=== PATIENT | female | born 1940 | race Two or more races ===

== ENCOUNTER 2019-08-23 23:37 | Inpatient (IN) | payer MEDICARE, MEDICAID ==
[~2019-08-23] VITALS: Ht 165.1 cm; Wt 71.2 kg
[2019-08-24] MEDS ORDERED: IV NS 0.9% 500 ML BAG IV ONE
[2019-08-24 00:05] LABS: BASOPHILS # (AUTO) 0.1 /CMM (0.0-0.2); BASOPHILS % (AUTO) 0.5 % (0.0-2.0); EOSINOPHILS % (AUTO) 1.5 % (0.0-6.0); HEMATOCRIT 37 % (33-45); HEMOGLOBIN 11.6 g/dL (11.5-14.8); LYMPHOCYTES % (AUTO) 13.4 % (20.0-44.0); MEAN CORPUSCULAR HGB CONC 32 g/dl (31.0-36.0); MEAN CORPUSCULAR VOLUME 92 fL (82-100); MONOCYTES # (AUTO) 0.9 /CMM (0.1-1.30); MONOCYTES % (AUTO) 4.1 % (2.0-12.0); NEUTROPHILS # (AUTO) 17.9 /CMM (1.8-8.9); NEUTROPHILS % (AUTO) 80.5 % (43.0-81.0); PLATELET COUNT (AUTO) 461 /CMM (150-450); RED BLOOD CELL COUNT(AUTO) 3.99 MIL/uL (4.0-5.2); WHITE BLOOD COUNT (AUTO) 22.2 K/uL (4.3-11.0)
--- NOTE | 2019-08-24 00:18 | NUR ---
Pt rec'd on non rebreather mask @ 15LPM. Pt showed shortness of breath and tachypnea. Pt placed on bipap on settings as charted per MD orders. ABG to be taken in 1 hour per MD orders. Alarms are set and audible. Bipap plugged into red oulet. Ambu bag bedside. Will continue to monitor. Addendum: 08/24/19 at 0021 by FREIDA DUBOSE RT Amended: Links added.
--- NOTE | 2019-08-24 00:20 | NUR ---
REFERRED BY PMD FOR ABNORMAL XRAY. HAVING SOB AT FACILITY.
[2019-08-24 00:26] LABS: CARBON DIOXIDE 26 mmol/L (21-32); CHLORIDE 100 mmol/L (98-107); GLUCOSE 178 mg/dL (74-106); POTASSIUM 4.1 mmol/L (3.5-5.1); SODIUM SERUM 138 mmol/L (136-145); UREA NITROGEN, BLOOD 32 mg/dL (7-18)
[2019-08-24 00:39] LABS: ALANINE AMINOTRANSFERASE 21 U/L (12-78); ALBUMIN 2.7 g/dL (3.4-5.0); ALKALINE PHOSPHATASE 117 U/L (46-116); ASPARTATE AMINOTRANSFERASE 11 U/L (15-37); B-TYPE NATRIURETIC PEPTIDE 748 PG/ML (0-125); BILIRUBIN,DIRECT 0.1 mg/dL (0.0-0.2); BILIRUBIN,TOTAL 0.2 mg/dL (0.2-1.0)
[2019-08-24] MEDS ORDERED: METH5TAB6 PO (01:16)
[2019-08-24] MEDS ORDERED: ENOX40DI SQ (01:16)
[2019-08-24] MEDS ORDERED: PRED20TA PO (01:16)
[2019-08-24] MEDS ORDERED: ASPI-1169 PO (01:16)
[2019-08-24] MEDS ORDERED: CYAN-6 PO (01:16)
[2019-08-24] MEDS ORDERED: GABA-534 PO (01:17)
[2019-08-24] MEDS ORDERED: NIFE30TA91 PO (01:17)
[2019-08-24] MEDS ORDERED: MONT10TA22 PO (01:17)
[2019-08-24] MEDS ORDERED: ZINC220C8 PO (01:17)
[2019-08-24] MEDS ORDERED: ATOR10TA PO (01:17)
[2019-08-24] MEDS ORDERED: ASCO500C18 PO (01:17)
[2019-08-24] MEDS ORDERED: FURO-145 PO (01:17)
[2019-08-24] MEDS ORDERED: PANT40TA4 PO (01:17)
[2019-08-24] MEDS ORDERED: ACET125T3 PO (01:17)
[2019-08-24] MEDS ORDERED: MULT1TAB73 PO (01:17)
[2019-08-24] MEDS ORDERED: FLUT1BLS IH (01:17)
[2019-08-24] MEDS ORDERED: METO25TA6 PO (01:17)
[2019-08-24] MEDS ORDERED: MIRT15TA7 PO (01:17)
[2019-08-24] MEDS ORDERED: SPIR25TA6 PO (01:17)
[2019-08-24] MEDS ORDERED: LORA10TA7 PO (01:17)
[2019-08-24] MEDS ORDERED: BUSP5TAB3 PO (01:17)
[2019-08-24] MEDS ORDERED: SENN-18 PO (01:17)
[2019-08-24] MEDS ORDERED: ZOLP5TAB8 PO (01:17)
--- NOTE | 2019-08-24 01:46 | NUR ---
STEVEN RODRÍGUEZ. STEVEN NAIDU. NO NEW CHANGES PER MD Addendum: 08/24/19 at 0147 by FREIDA DUBOSE RT Amended: Links added.
[2019-08-24] MEDS ORDERED: PIPERACILLIN /TAZOBACTAM 3.375 G in IV D5W 50 ML IV ONE (02:00)
[2019-08-24] MEDS ORDERED: VANCOMYCIN 1 GM in IV D5W 250 ML IV ONE (02:00)
--- NOTE | 2019-08-24 02:04 | NUR ---
BED ASSIGNMENT YASHIRA 113-2
[2019-08-24] MEDS ORDERED: VANCOMYCIN 1 GM VIAL ONE (02:30)
[2019-08-24] MEDS ORDERED: PIPERACILLIN /TAZOBACTAM 3.375 G VIAL IV ONE (02:30)
--- NOTE | 2019-08-24 02:44 | NUR ---
REPORT CALLED TO YASHIRA DEIRDRE GOLDMAN. WILL TRANSPORT PT VIA ACLS PROTOCOL.
--- NOTE | 2019-08-24 03:05 | NUR ---
YASHIRA RN NOTE PATIENT RECEIVED FROM ER A/0 X 4 UPPER SORBIAN SPEAKING ON NON REBREATHER. PATIENT SLIGHT SHORT OF BREATH AND VERBALLY DEFENSIVE. PATIENT VS WNL PATIENT DENIES PAIN/ CHEST PAIN AND C/O MILD SOB. SKIN WNL NO CYANOSIS OR PALLOR. SKIN WARM AND DRY. BODY CHECK DONE WITH MULTIPLE SKIN ISSUES NOTED. WOUND CONSULT PLACED. PATIENT HAS SINGLE LUMEN PICC LINE IN HEIDI PATENT AND INTACT. PATIENT COMPLETED VANCO FROM ER. PATIENT CLEANED AND ORIENTED TO THE UNIT. INSTRUCTED THE USE OF THE CALL LIGHT TO THE PATIENT PATIENT VERBALIZE UNDERSTANDING. NOTIFIED THE FAMILY OF PATIENT ADMISSION TO HOSPITAL. SPOKE TO THE "PERSON TO NOTIFY OTILIO MOCTEZUMA. RN WILL CONTINUE TO MONITOR AND GIVE CARE ORDERED. BED IN LOWEST LOCKED POSITION SIDE RAILS UP X3.
[2019-08-24 04:00] VITALS: BP 122/63
[2019-08-24] MEDS ORDERED: IPRATROPIUM NEB FS 0.5 MG/2.5 ML AMPUL.NEB NEB PRN (04:00)
[2019-08-24] MEDS ORDERED: ALBUTEROL FS 2.5 MG/3 ML VIAL.NEB NEB PRN (04:00)
[2019-08-24] MEDS ORDERED: AZITHROMYCIN 500 MG VIAL ONE (05:43)
[2019-08-24] MEDS: AZITHROMYCIN 500 MG in IV D5W 250 ML IV SCH (06:05)
[2019-08-24] MEDS: IV NS 0.9% 1,000 ML IV PRN ×2 (06:05→20:39)
[2019-08-24 07:25] LABS: BASOPHILS # (AUTO) 0.1 /CMM (0.0-0.2); BASOPHILS % (AUTO) 0.3 % (0.0-2.0); EOSINOPHILS % (AUTO) 1.3 % (0.0-6.0); HEMATOCRIT 38 % (33-45); HEMOGLOBIN 11.7 g/dL (11.5-14.8); LYMPHOCYTES # (AUTO) 2.5 /CMM (0.8-4.8); LYMPHOCYTES % (AUTO) 11.1 % (20.0-44.0); MEAN CORPUSCULAR HGB CONC 31 g/dl (31.0-36.0); MEAN CORPUSCULAR VOLUME 93 fL (82-100); MONOCYTES # (AUTO) 0.5 /CMM (0.1-1.30); MONOCYTES % (AUTO) 2.1 % (2.0-12.0); NEUTROPHILS # (AUTO) 19.2 /CMM (1.8-8.9); NEUTROPHILS % (AUTO) 85.2 % (43.0-81.0); PLATELET COUNT (AUTO) 389 /CMM (150-450); RED BLOOD CELL COUNT(AUTO) 4.03 MIL/uL (4.0-5.2); WHITE BLOOD COUNT (AUTO) 22.5 K/uL (4.3-11.0)
--- NOTE | 2019-08-24 07:30 | NUR ---
RN YASHIRA NOTES RECEIVED BEDSIDE REPORT PATIENT SLEEPING A/O X3 NEW ZEALANDER SPEAKING. NO SIGNS OR SYMPTOMS OF RESPIRATORY DISTRESS ON BIPAP TOLERATING WELL. NO C/O PAIN AT THIS TIME. NORMAL NORMAL SINUS WITH EPISODES OF TACHY ON MONITOR. NPO EXCEPT MEDS. HEIDI PICC LINE RUNNING NS @ 70 ML/HR. SAFETY AND ASPIRATION PRECAUTIONS IN PLACE BED IN LOW LOCKED POSITION CALL LIGHT WITHIN REACH WILL CONT TO MONITOR
[2019-08-24] MEDS ORDERED: ALBUTEROL FS 2.5 MG/3 ML VIAL.NEB NEB SCH (07:35)
[2019-08-24 07:47] LABS: BILIRUBIN,TOTAL 0.2 mg/dL (0.2-1.0); CALCIUM, SERUM 9.4 mg/dL (8.5-10.1); CREATININE 0.8 mg/dL (0.6-1.3); POTASSIUM 4.2 mmol/L (3.5-5.1); TOTAL PROTEIN, SERUM 7.7 g/dL (6.4-8.2)
[2019-08-24] MEDS ORDERED: POLY15DR40 EACHEYE (07:50)
[2019-08-24] MEDS ORDERED: IPRA3AMP23 IH (07:50)
[2019-08-24] MEDS ORDERED: TRAM50TA2 PO (07:50)
[2019-08-24] MEDS ORDERED: ACET-868 PO (07:50)
[2019-08-24] MEDS ORDERED: HYDR-3974 PO (07:50)
[2019-08-24] MEDS ORDERED: MULT-447 PO (07:50)
[2019-08-24] MEDS ORDERED: ASPI-1152 PO (07:50)
[2019-08-24] MEDS ORDERED: BACL10TA PO (07:50)
[2019-08-24] MEDS ORDERED: MAGN400T26 PO (07:50)
[2019-08-24] MEDS ORDERED: GUAI100S11 PO (07:50)
[2019-08-24] MEDS ORDERED: LACT1CAP94 PO (07:50)
[2019-08-24 08:00] VITALS: BP 118/64
[2019-08-24] MEDS: IPRATROPIUM NEB FS 0.5 MG/2.5 ML AMPUL.NEB NEB SCH ×4 (08:05→19:45)
[2019-08-24 08:15] LABS: ALBUMIN 2.9 g/dL (3.4-5.0)
[2019-08-24] MEDS ORDERED: ASPIRIN EC 81 MG TABLET.DR PO SCH (09:00)
[2019-08-24] MEDS ORDERED: LACTOBACILLUS RHAMNOSUS GG 1 EACH CAP.SPRINK PO SCH (09:00)
[2019-08-24] MEDS ORDERED: HYDROCODONE/APAP 5/325MG 1 EACH TABLET PO PRN (09:00)
[2019-08-24] MEDS ORDERED: MAGNESIUM OXIDE 400 MG TABLET PO SCH (09:00)
[2019-08-24] MEDS ORDERED: ZOLPIDEM TARTRATE 5 MG TABLET PO PRN (09:00)
[2019-08-24] MEDS ORDERED: GUAIFENESIN 300 MG/15 ML UDC PO PRN (09:00)
[2019-08-24] MEDS ORDERED: MULTIVIT W/MINERALS 1 TAB TABLET PO SCH (09:00)
[2019-08-24] MEDS ORDERED: BACLOFEN (10 MG) 10 MG TABLET PO PRN (09:00)
[2019-08-24] MEDS ORDERED: acetaZOLAMIDE 250 MG TABLET PO SCH (09:00)
[2019-08-24] MEDS ORDERED: ZINC SULFATE 220 MG CAPSULE PO SCH (09:00)
[2019-08-24] MEDS ORDERED: ASCORBIC ACID 500 MG TABLET PO SCH (09:00)
[2019-08-24] MEDS ORDERED: POLYVINYL ALCOHOL 15 ML BOTTLE EACHEYE PRN (09:00)
[2019-08-24] MEDS ORDERED: ACETAMINOPHEN 325 MG TABLET PO PRN (09:00)
[2019-08-24] MEDS ORDERED: TRAMADOL HCL 50 MG TABLET PO PRN (09:00)
--- NOTE | 2019-08-24 09:05 | NUR ---
RT ABG DONE, RESULTS IN CHART. DOWN TIME PROCEDURE DONE. RN NOTIFIED. DR HILARIO NOTIFIED. PH 7.30 CO2 53.8 PO2 62.1 HCO3 26.4
[2019-08-24 09:30] LABS: BAND % (MANUAL) 8 % (0.0-5.0); EOSINOPHILS % (MANUAL) 1 % (0-4); LYMPHOCYTES % (MANUAL) 19 % (16-48); MONOCYTES % (MANUAL) 3 % (0-11.0); NEUTROPHILS % (MANUAL) 69 (42-76)
[2019-08-24 09:34] LABS: THYROID STIMULATING HORMONE 1.673 uIU/mL (0.358-3.74)
[2019-08-24] MEDS: SPIRONOLACTONE 25 MG TABLET PO SCH (09:46)
[2019-08-24] MEDS: predniSONE 20 MG TABLET PO SCH (09:46)
[2019-08-24] MEDS: METHIMAZOLE (5MG) 5 MG TABLET PO SCH (09:46)
[2019-08-24] MEDS: METOPROLOL TARTRATE 25 MG TABLET PO SCH ×2 (09:47→17:38)
[2019-08-24] MEDS: GABAPENTIN 300 MG CAPSULE PO SCH ×3 (09:47→17:38)
[2019-08-24] MEDS: busPIRone 5 MG TABLET PO SCH ×2 (09:47→17:37)
[2019-08-24] MEDS: FLUTICASONE/VILANTEROL 1 EACH BLST.W.DEV IH SCH (09:47)
[2019-08-24] MEDS: NIFEdipine XL (30MG) 30 MG TAB PO SCH ×2 (09:47→17:38)
[2019-08-24] MEDS: LORATADINE 10 MG TABLET PO SCH (09:47)
[2019-08-24] MEDS: ENOXAPARIN SODIUM 40 MG/0.4 ML DISP.SYRIN SQ SCH (09:52)
[2019-08-24] MEDS: ALBUTEROL FS 2.5 MG/3 ML VIAL.NEB NEB SCH ×5 (11:53→23:18)
[2019-08-24 12:00] VITALS: BP 111/52
[2019-08-24] MEDS: CEFTRIAXONE 1 G in IV D5W 50 ML IV SCH (12:12)
--- NOTE | 2019-08-24 12:30 | NUR ---
LEFT MESSAGE WITH DR HURD PATIENT HAS LOW GRADE FEVER REQUESTING ORDER FOR TYLENOL. DR UNAWARE OF THIS PATIENT WILL F/U
[2019-08-24] MEDS ORDERED: Z GUARD REMEDY 2 OZ OINT TP PRN (14:00)
[2019-08-24 16:00] VITALS: BP 105/62
--- NOTE | 2019-08-24 16:00 | NUR ---
DR HURD RESPONDED DR SÁNCHEZ TO F/U WITH PT TODAY
--- NOTE | 2019-08-24 18:07 | NUR ---
CONFIRMED WITH FAMILY OLIVERIO DAUGHTER IN LAW THAT PATINT IS DNR/DNI THE POLST STATES IN CHART. DR HILARIO AWARE
--- NOTE | 2019-08-24 18:37 | NUR ---
RN YASHIRA NOTES NO SIGNIFICANT CHANGES NOTED . PATIENT A/O X 1-2 CONFUSED AT TIMES. ON 6 LTRS NASAL CANNULA WITH SOME SOB WITH NO DISTRESS NOTED. NO C/O PAIN . SINUS ON MONITOR 90'S. INCONTINENT B&B WOUND CONSULT ORDERED FOR MASD. NPO EXCEPT MEDS.HEIDI PICC RUNNING NS @ 70 ML/HR. KEPT CLEAN AND DRY REPOSITIONED FOR COMFORT SAFETY AND ASPIRATION PRECAUTIONS IN PLACE BED IN LOW LOCKED POSITION WILL ENDORSE TO NOC
[2019-08-24 20:00] VITALS: BP 104/65
--- NOTE | 2019-08-24 20:01 | NUR ---
TD RN NOTES RECEIVED PT ON BED. A/O X 2. ON TELE MONITOR SR 82. IV ACCESS ON HEIDI PICC NS @ 70CC/HR PATENT AND INTACT. HEAD OF BED ELEVATED. SIDE RAILS UP. CALL LIGHT WITHIN REACH. BED ALARM ON. BED IN LOW AND LOCKED POSITION, WILL CONTINUE TO MONITOR PT CLOSELY.
--- NOTE | 2019-08-24 20:02 | NUR ---
TD RN NOTES PT REFUSE BIPAP. EXPLAINED RISK AND BENEFITS. PT STILL REFUSED.
[2019-08-24] MEDS: MONTELUKAST SODIUM (10MG) 10 MG TABLET PO SCH (21:15)
[2019-08-24] MEDS: MIRTAZAPINE 15 MG TABLET PO SCH (21:15)
[2019-08-24] MEDS: ATORVASTATIN 10 MG TABLET PO SCH (21:15)
[2019-08-24] MEDS: SENNOSIDES 8.6 MG TABLET PO SCH (21:16)
--- NOTE | 2019-08-24 22:46 | NUR ---
TD RN NOTES PT ON BIPAP. RT AT BEDSIDE.
[2019-08-25] VITALS: BP 106/71
[2019-08-25] MEDS: ALBUTEROL FS 2.5 MG/3 ML VIAL.NEB NEB SCH ×5 (03:05→20:01)
[2019-08-25 04:00] VITALS: BP 121/70
[2019-08-25] MEDS: AZITHROMYCIN 500 MG in IV D5W 250 ML IV SCH (05:17)
--- NOTE | 2019-08-25 06:45 | NUR ---
TD RN NOTES PT SEEN AND EXAMINED BY DR. MARIN
--- NOTE | 2019-08-25 07:34 | NUR ---
TD RN NOTES NO ACUTE CHANGES NOTED DURING THE SHIFT. NO RESPIRATORY DISTRESS NOTED. WILL ENDORSE TO THE AM NURSE FOR CONTINUITY OF CARE.
[2019-08-25] MEDS: IPRATROPIUM NEB FS 0.5 MG/2.5 ML AMPUL.NEB NEB SCH ×4 (07:40→20:01)
[2019-08-25 08:00] VITALS: BP 108/59
[2019-08-25] MEDS: METOPROLOL TARTRATE 25 MG TABLET PO SCH ×2 (09:00→18:42)
[2019-08-25] MEDS: CEFTRIAXONE 1 G in IV D5W 50 ML IV SCH (09:25)
[2019-08-25] MEDS: FLUTICASONE/VILANTEROL 1 EACH BLST.W.DEV IH SCH (09:26)
[2019-08-25] MEDS: ENOXAPARIN SODIUM 40 MG/0.4 ML DISP.SYRIN SQ SCH (09:29)
[2019-08-25] MEDS ORDERED: ONDANSETRON HCL/PF 4 MG/2 ML VIAL IV PRN (09:30)
--- NOTE | 2019-08-25 10:20 | NUR ---
WOUND CARE CONSULT: PT PRESENTS WITH INCONTINENCE AND INCONTINENCE ASSOCIATED SKIN DAMAGE TO BUTTOCKS, RASHES TO BREASTFOLDS, ABDOMINAL AND GROIN FOLDS, PRESENT ON ADMISSION. RECOMMENDATIONS MADE FOR SKIN PROTECTION AND CARE. DISCUSSED WITH NURSING STAFF. CURRENT HAMILTON SCORE IS 11. FIRST STEP LOW AIRLOSS MATTRESS ON ORDER. WILL SEE PRN. VICK IN AGREEMENT WITH PLAN OF CARE. Addendum: 08/25/19 at 1021 by AMY BOYD WNDNU Amended: Links added.
[2019-08-25 12:00] VITALS: BP 107/56
[2019-08-25] MEDS: busPIRone 5 MG TABLET PO SCH ×2 (12:00→18:41)
[2019-08-25] MEDS: predniSONE 20 MG TABLET PO SCH (12:00)
[2019-08-25] MEDS: METHIMAZOLE (5MG) 5 MG TABLET PO SCH (12:00)
[2019-08-25] MEDS: GABAPENTIN 300 MG CAPSULE PO SCH ×3 (12:01→18:51)
[2019-08-25] MEDS: SPIRONOLACTONE 25 MG TABLET PO SCH (12:01)
[2019-08-25] MEDS: PANTOPRAZOLE 40 MG TABLET.DR PO SCH (12:01)
[2019-08-25] MEDS: LORATADINE 10 MG TABLET PO SCH (12:02)
[2019-08-25] MEDS: IV NS 0.9% 1,000 ML IV PRN (12:38)
[2019-08-25 16:00] VITALS: BP_SYST 111; BP_SYST 126; BP_DIAS 63; BP_DIAS 69
[2019-08-25] MEDS: CLOTRIMAZOLE 1% 15 GM TUBE TP SCH (18:52)
--- NOTE | 2019-08-25 19:00 | NUR ---
RN NOTE F/U WITH DR HURD REGARDING THE DIET, DIET ORDERED. PT WAS ABLE TO TOLERATE WELL, NO S/S ASPIRATION.
--- NOTE | 2019-08-25 19:30 | NUR ---
RN OPENING NOTES RECEIVED PATIENT ASLEEP WITH NO SIGNS OF DISTRESS. PATIENT IS ON THE MONITOR WITH SINUS TACH HEART RATE 95. NO COMPLAINTS ON ANY SOB. PATIENT HAS A HEIDI MIDLINE WITH NS RUNNING AT 70ML/HR. PATIENT IS ON ISOLATION FOR MRSA ISOLATION PRECAUTIONS APPLIED. ALL SAFETY PRECAUTIONS APPLIED. CALL LIGHT IS WITHIN REACH, BED PLACED IN LOW POSITION AND ALARM BED ON. WILL CONTINUE TO MONITOR.
[2019-08-25 20:00] VITALS: BP 109/60
[2019-08-25] MEDS ORDERED: MUPIROCIN OINT 2% 22 GM TUBE SCH (21:00)
[2019-08-25] MEDS: MONTELUKAST SODIUM (10MG) 10 MG TABLET PO SCH (21:44)
[2019-08-25] MEDS: SENNOSIDES 8.6 MG TABLET PO SCH (21:44)
[2019-08-25] MEDS: ATORVASTATIN 10 MG TABLET PO SCH (21:44)
[2019-08-25] MEDS: MIRTAZAPINE 15 MG TABLET PO SCH (21:45)
[2019-08-26] VITALS: BP 125/64
[2019-08-26] MEDS: ALBUTEROL FS 2.5 MG/3 ML VIAL.NEB NEB SCH ×7 (00:24→23:49)
[2019-08-26] MEDS: IV NS 0.9% 1,000 ML IV PRN (03:38)
[2019-08-26 04:00] VITALS: BP 126/48
[2019-08-26] MEDS: AZITHROMYCIN 500 MG in IV D5W 250 ML IV SCH (05:40)
[2019-08-26 06:20] LABS: ABG BASE EXCESS -0.3 mmol/L; ABG OXYGEN SATURATION 98.7 % (92.0-98.5); ABG PCO2 56.1 mmHg (35.0-45.0); ABG PH 7.297 (7.350-7.450); ABG PO2 173.9 mmHg (75.0-100.0); COHb 0.3 % (0.5-1.5); MetHb 0.6 % (0.0-1.5); O2Hb 97.8 % (94.0-97.0); SITE, ABG Left Radial
--- NOTE | 2019-08-26 06:30 | NUR ---
RN NOTE PATIENT OXYGEN HAD DROPPED TO THE 70'S CALLED RT. RT CHECKED ABG'S AND PLACED PATIENT IN BIPAP MACHINE. CALL DR CLAIMS ASSOCIATE FOR DR. HURD TO NOTIFY ABOUT THE PATIENT'S STATUS.
--- NOTE | 2019-08-26 06:36 | NUR ---
pt placed back on Bipap per abg results Addendum: 08/26/19 at 0636 by FREIDA DUBOSE RT Amended: Links added.
--- NOTE | 2019-08-26 07:30 | NUR ---
GUIDE VISITOR INITIAL NOTES RECEIVED PT IN BED, A/OX1. ON BIPAP SINCE 629 D/T PT DESAT IN 70'S PER PM NURSE. PT'S O2 94% NO S/SX OF RESP DISTRESS AT THIS TIME. ON TELE ST 113. AFEBRILE. HEIDI MIDLINE RUNNING NS AT 70 ML/HR. SAFETY/ISOLATION PRECAUTIONS IN PLACE. CALL LIGHT IN REACH. WILL CONT TO MONITOR.
--- NOTE | 2019-08-26 07:38 | NUR ---
TELE TN CLOSING NOTE PATIENT LAYING IN BED WITH NO SIGNS OF ANY SOB. PATIENT IS ON BIPAP WITH IPAP OF 15, EPAP OF 5, RATE OF 16, FI02 50%. PATIENTS OXYGEN LEVEL IS IN THE 99. APPLIED ALL SAFETY PRECAUTIONS. ENDORSED PATIENT TO MORNING NURSE.
[2019-08-26 08:00] VITALS: BP 123/61
--- NOTE | 2019-08-26 08:30 | NUR ---
telephone messenger notes bipap removed by rt. pt's o2 wnl on 6L NC. will cont to monitor.
[2019-08-26] MEDS: CEFTRIAXONE 1 G in IV D5W 50 ML IV SCH (08:58)
[2019-08-26 08:59] LABS: THYROID STIMULATING HORMONE 0.881 uIU/mL (0.358-3.74)
[2019-08-26] MEDS: FLUTICASONE/VILANTEROL 1 EACH BLST.W.DEV IH SCH (08:59)
[2019-08-26] MEDS: CLOTRIMAZOLE 1% 15 GM TUBE TP SCH ×2 (09:03→17:39)
[2019-08-26] MEDS: IPRATROPIUM NEB FS 0.5 MG/2.5 ML AMPUL.NEB NEB SCH ×4 (09:06→19:54)
[2019-08-26] MEDS: METOPROLOL TARTRATE 25 MG TABLET PO SCH ×2 (09:07→17:28)
[2019-08-26] MEDS: ENOXAPARIN SODIUM 40 MG/0.4 ML DISP.SYRIN SQ SCH (09:07)
[2019-08-26] MEDS: SPIRONOLACTONE 25 MG TABLET PO SCH (09:08)
[2019-08-26] MEDS: busPIRone 5 MG TABLET PO SCH ×2 (09:08→17:27)
[2019-08-26] MEDS: predniSONE 20 MG TABLET PO SCH (09:09)
[2019-08-26] MEDS: LORATADINE 10 MG TABLET PO SCH (09:09)
[2019-08-26] MEDS: PANTOPRAZOLE 40 MG TABLET.DR PO SCH (09:09)
[2019-08-26] MEDS: METHIMAZOLE (5MG) 5 MG TABLET PO SCH (09:09)
[2019-08-26] MEDS: GABAPENTIN 300 MG CAPSULE PO SCH ×3 (09:10→17:27)
[2019-08-26 12:00] VITALS: BP 110/55
[2019-08-26 15:49] LABS: ABG OXYGEN SATURATION 94.5 % (92.0-98.5); ABG PH 7.385 (7.350-7.450); ABG PO2 72.5 mmHg (75.0-100.0); AaDO2 105.4 mmHg; COHb 0.2 % (0.5-1.5); MetHb 0.3 % (0.0-1.5); SITE, ABG Left Radial; VENT MODE, BG Nasal Cannula
[2019-08-26 16:00] VITALS: BP 120/68
--- NOTE | 2019-08-26 19:17 | NUR ---
BOWL SANDER END OF SHIFT NOTES PT IN BED, STABLE ON 2L NC. NO S/SX OF RESP DISTRESS NOTED. SAFETY/ISOLATION PRECAUTIONS IN PLACE. ENDORSED TO PM NURSE FOR SIDDHARTHA.
[2019-08-26 20:00] VITALS: BP 105/64
[2019-08-26] MEDS: ATORVASTATIN 10 MG TABLET PO SCH (21:10)
[2019-08-26] MEDS: MONTELUKAST SODIUM (10MG) 10 MG TABLET PO SCH (21:10)
[2019-08-26] MEDS: MIRTAZAPINE 15 MG TABLET PO SCH (21:10)
[2019-08-26] MEDS: SENNOSIDES 8.6 MG TABLET PO SCH (21:10)
[2019-08-27] VITALS: BP 102/58
[2019-08-27] MEDS: ALBUTEROL FS 2.5 MG/3 ML VIAL.NEB NEB SCH ×6 (03:33→23:03)
[2019-08-27 04:00] VITALS: BP 115/77
[2019-08-27] MEDS: AZITHROMYCIN 500 MG in IV D5W 250 ML IV SCH (05:01)
--- NOTE | 2019-08-27 07:15 | NUR ---
BAGGAGE HANDLING SUPERVISOR OPENING RECEIVED PATIENT A/OX1, NO RESPIRATORY DISTRESS NOTED, ATTACHED TO 2L O2 VIA NC. ATTACHED TO TELE, SINUS RHYTHM HR 94. R UA MIDLINE C/D/I, NO S/S INFILTRATION. HOB >30DEGREES. BED ALARM ON, WILL CONT TO MONITOR
[2019-08-27 08:00] VITALS: BP 135/71
[2019-08-27] MEDS: IPRATROPIUM NEB FS 0.5 MG/2.5 ML AMPUL.NEB NEB SCH ×4 (08:08→19:09)
[2019-08-27] MEDS: predniSONE 20 MG TABLET PO SCH (09:02)
[2019-08-27] MEDS: CEFTRIAXONE 1 G in IV D5W 50 ML IV SCH (09:02)
[2019-08-27] MEDS: FLUTICASONE/VILANTEROL 1 EACH BLST.W.DEV IH SCH (09:02)
[2019-08-27] MEDS: SPIRONOLACTONE 25 MG TABLET PO SCH (09:02)
[2019-08-27] MEDS: METOPROLOL TARTRATE 25 MG TABLET PO SCH ×2 (09:03→17:10)
[2019-08-27] MEDS: GABAPENTIN 300 MG CAPSULE PO SCH ×3 (09:03→17:12)
[2019-08-27] MEDS: busPIRone 5 MG TABLET PO SCH ×2 (09:03→17:10)
[2019-08-27] MEDS: LORATADINE 10 MG TABLET PO SCH (09:03)
[2019-08-27] MEDS: METHIMAZOLE (5MG) 5 MG TABLET PO SCH (09:03)
[2019-08-27] MEDS: ENOXAPARIN SODIUM 40 MG/0.4 ML DISP.SYRIN SQ SCH (09:05)
[2019-08-27] MEDS: PANTOPRAZOLE 40 MG TABLET.DR PO SCH (09:08)
[2019-08-27] MEDS: CLOTRIMAZOLE 1% 15 GM TUBE TP SCH ×2 (09:08→17:11)
--- NOTE | 2019-08-27 09:30 | NUR ---
PATIENT REMOVED MIDLINE. NO BLEEDING NOTED FROM SITE. APPROVED ANOTHER INSERTION, NURSING SUP AWARE
[2019-08-27 12:00] VITALS: BP 111/60
[2019-08-27 14:48] LABS: ALBUMIN 2.1 g/dL (3.4-5.0); BILIRUBIN,TOTAL 0.2 mg/dL (0.2-1.0); CALCIUM, SERUM 9.6 mg/dL (8.5-10.1); CREATININE 0.6 mg/dL (0.6-1.3); POTASSIUM 4.6 mmol/L (3.5-5.1); TOTAL PROTEIN, SERUM 7.4 g/dL (6.4-8.2)
[2019-08-27 16:00] VITALS: BP 119/70
--- NOTE | 2019-08-27 19:00 | NUR ---
TELEGRAPH INSPECTOR CLOSING TITRATED PATIENT DOWN TO ROOM AIR THIS SHIFT. SPO 94%, NO SOB, UNLABORED, EVEN BREATHING. PULXE OX ATTACHED, ALARM AUDIBLE. ENDORSED TO NOC RN
--- NOTE | 2019-08-27 19:45 | NUR ---
FOOD SERVICE SPECIALIST OPENING RECEIVED PATIENT A/OX1, NO RESPIRATORY DISTRESS NOTED, ATTACHED TO 2L O2 VIA NC 94%. PATIENT ON TELE MONITOR, SR, HR 94. R UA MIDLINE C/D/I, NO S/S INFILTRATION. HOB >30DEGREES. BED ALARM ON, WILL CONT TO MONITOR
[2019-08-27 20:00] VITALS: BP 123/78
[2019-08-27] MEDS: ATORVASTATIN 10 MG TABLET PO SCH (22:32)
[2019-08-27] MEDS: SENNOSIDES 8.6 MG TABLET PO SCH (22:32)
[2019-08-27] MEDS: MIRTAZAPINE 15 MG TABLET PO SCH (22:33)
[2019-08-27] MEDS: MONTELUKAST SODIUM (10MG) 10 MG TABLET PO SCH (22:33)
[2019-08-28 00:10] VITALS: BP 144/89
[2019-08-28] MEDS: ALBUTEROL FS 2.5 MG/3 ML VIAL.NEB NEB SCH ×6 (03:32→22:58)
[2019-08-28 04:00] VITALS: BP 123/88
[2019-08-28] MEDS: AZITHROMYCIN 500 MG in IV D5W 250 ML IV SCH (06:45)
--- NOTE | 2019-08-28 07:16 | NUR ---
DOT COMPLIANCE MANAGER CLOSING NOTES, PATIENT IN BED A LITTLE ANXIOUS. A/OX1, NO RESPIRATORY DISTRESS NOTED, ATTACHED TO 2L O2 VIA NC 98%. PATIENT ON TELE MONITOR, SR, HR 94. R UA MIDLINE C/D/I, NO S/S INFILTRATION. HOB >30DEGREES. BED LOCKED/LOW POSITION,BED ALARM ON. WILL ENDORSE TO AM RN FOR SIDDHARTHA.
[2019-08-28] MEDS: PANTOPRAZOLE 40 MG TABLET.DR PO SCH (07:28)
--- NOTE | 2019-08-28 07:45 | NUR ---
RN OPENING NOTES RECEIVED PATIENT AWAKE AND RESTING IN BED COMFORTABLY. SHE IS AOX1-2, VERBAL, AND ON BEDREST. SHE IS ANXIOUS THIS MORNING AND WANTS TO GO HOME. 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 TELE MONITOR SHOWING SR. SHE IS ON A MECHANICAL SOFT DIET, TOLERATING WELL. LUNGS SOUNDS ARE DIMINISHED AT LOWER BASES WITH SLIGHT CRACKLES UPON ASSESSMENT. SHE HAS A JUAN MIDLINE, PATENT AND INTACT. WILL ADDRESS SKIN ISSUES ORDERED. SAFETY MEASURES HAVE BEEN IMPLEMENTED, CALL LIGHT IS WITHIN REACH, BED IS IN LOWEST AND LOCKED POSITION, SIDE RIALS UP X2, WILL CONTINUE TO MONITOR FOR ANY CHANGES.
[2019-08-28] MEDS: IPRATROPIUM NEB FS 0.5 MG/2.5 ML AMPUL.NEB NEB SCH ×4 (07:55→19:28)
[2019-08-28 08:00] VITALS: BP 138/84
[2019-08-28] MEDS: CEFTRIAXONE 1 G in IV D5W 50 ML IV SCH (08:28)
[2019-08-28] MEDS: GABAPENTIN 300 MG CAPSULE PO SCH ×3 (08:31→16:41)
[2019-08-28] MEDS: METHIMAZOLE (5MG) 5 MG TABLET PO SCH (08:32)
[2019-08-28] MEDS: busPIRone 5 MG TABLET PO SCH ×2 (08:32→16:40)
[2019-08-28] MEDS: METOPROLOL TARTRATE 25 MG TABLET PO SCH ×2 (08:33→16:41)
[2019-08-28] MEDS: LORATADINE 10 MG TABLET PO SCH (08:33)
[2019-08-28] MEDS: SPIRONOLACTONE 25 MG TABLET PO SCH (08:33)
[2019-08-28] MEDS: predniSONE 20 MG TABLET PO SCH (08:34)
[2019-08-28] MEDS: FLUTICASONE/VILANTEROL 1 EACH BLST.W.DEV IH SCH (08:36)
[2019-08-28] MEDS: ENOXAPARIN SODIUM 40 MG/0.4 ML DISP.SYRIN SQ SCH (08:36)
[2019-08-28] MEDS: CLOTRIMAZOLE 1% 15 GM TUBE TP SCH ×2 (08:37→16:41)
[2019-08-28 08:39] LABS: BASOPHILS # (AUTO) 0.1 /CMM (0.0-0.2); BASOPHILS % (AUTO) 0.6 % (0.0-2.0); EOSINOPHILS % (AUTO) 1.9 % (0.0-6.0); HEMATOCRIT 33 % (33-45); HEMOGLOBIN 10.8 g/dL (11.5-14.8); LYMPHOCYTES # (AUTO) 2.4 /CMM (0.8-4.8); MEAN CORPUSCULAR HGB CONC 33 g/dl (31.0-36.0); MEAN CORPUSCULAR VOLUME 90 fL (82-100); MONOCYTES # (AUTO) 0.4 /CMM (0.1-1.30); MONOCYTES % (AUTO) 3.4 % (2.0-12.0); NEUTROPHILS # (AUTO) 9.4 /CMM (1.8-8.9); NEUTROPHILS % (AUTO) 75.1 % (43.0-81.0); PLATELET COUNT (AUTO) 507 /CMM (150-450); RED BLOOD CELL COUNT(AUTO) 3.66 MIL/uL (4.0-5.2); WHITE BLOOD COUNT (AUTO) 12.6 K/uL (4.3-11.0)
[2019-08-28 10:04] LABS: BAND % (MANUAL) 2 % (0.0-5.0); EOSINOPHILS % (MANUAL) 2 % (0-4); LYMPHOCYTES % (MANUAL) 17 % (16-48); MONOCYTES % (MANUAL) 2 % (0-11.0); NEUTROPHILS % (MANUAL) 77 (42-76)
[2019-08-28 12:00] VITALS: BP 123/69
[2019-08-28 16:00] VITALS: BP 123/84
--- NOTE | 2019-08-28 19:15 | NUR ---
RN CLOSING NOTES PATIENT IS RESTING IN BED COMFORTABLY AT THIS TIME, DENIES ANY PAIN OR DISCOMFORT AT THIS TIME. SHE IS TOLERATING NC WELL, NO SOB OR SEVERE DROP IN O2 SAT. PT NEEDS HAVE BEEN MET, VITAL SIGNS ARE STABLE, NO ACUTE CHANGES OCCURRED THROUGHOUT THE SHIFT. SAFETY MEASURES HAVE BEEN IMPLEMENTED, CALL LIGHT IS WITHIN REACH, BED IS IN LOWEST AND LOCKED POSITION, SIDE RAILS UP X2, PT HAS BEEN ENDORSED TO NIGHTSHIFT RN FOR CONTINUITY OF CARE.
--- NOTE | 2019-08-28 19:15 | NUR ---
RN OPENING NOTE: PATIENT IN BED RESTING COMFORTABLY. PATIENT IS A&OX1-2, VERBAL. NO SOB. NO S/S OF PAIN. JUAN MIDLINE PATENT AND INTACT. ON CONTACT ISOLATION FOR MRSA NARES. PATIENT IS ON MECHANICAL SOFT DIET. SAFETY PRECAUTIONS IMPLEMENTED. BED PLACED IN LOWEST POSITION. CALL LIGHT PLACED WITHIN REACH. WILL CONT. TO MONITOR.
[2019-08-28 20:00] VITALS: BP 115/81
--- NOTE | 2019-08-28 21:00 | NUR ---
RN NOTES, INFORMED PATIENT THAT SHE HAS ORDER FOR NOCTURNAL BIPAP AND A WHAT TIME SHE WANTS THE RT TO PLACE HER IN BIPAP, AND SHE SAID THAT SHE DOESN'T WANT BIPAP MACHINE, EXPLAINED RISKS AND BENEFITS AND THE IMPORTANCE FOR HER TO BE PLACED ON BIPAP X3, AND SHE STILL REFUSED.
[2019-08-28] MEDS: ATORVASTATIN 10 MG TABLET PO SCH (21:03)
[2019-08-28] MEDS: MIRTAZAPINE 15 MG TABLET PO SCH (21:04)
[2019-08-28] MEDS: SENNOSIDES 8.6 MG TABLET PO SCH (21:04)
[2019-08-28] MEDS: MONTELUKAST SODIUM (10MG) 10 MG TABLET PO SCH (21:04)
[2019-08-29] VITALS (7 sets, daily range): BP systolic 120–151; BP diastolic 53–97
[2019-08-29] MEDS: ALBUTEROL FS 2.5 MG/3 ML VIAL.NEB NEB SCH ×6 (03:12→23:43)
[2019-08-29] MEDS: AZITHROMYCIN 500 MG in IV D5W 250 ML IV SCH (05:29)
--- NOTE | 2019-08-29 06:51 | NUR ---
RN CLOSING NOTE: PATIENT IN BED, AWAKE, AND VERBALLY RESPONSIVE. A&OX1. NO RESPIRATORY DISTRESS. NO S/S OF PAIN. JUAN MIDLINE INTACT AND PATENT. ALL NEEDS ATTENDED. WILL ENDORSE TO NEXT SHIFT NURSE FOR CONTINUITY OF CARE.
--- NOTE | 2019-08-29 07:50 | NUR ---
CYBER SECURITY CONSULTANT NOTE: PATIENT IN BED, AWAKE, AND VERBALLY RESPONSIVE. A&OX1.WITH CONFUSION NO RESPIRATORY DISTRESS AT THIS TIME ON 2L NC OF O2 NO SOB AT THIS TIME . NO S/S OF PAIN. JUAN MIDLINE INTACT AND PATENT. ALL NEEDS ATTENDED. WILL CONT TO MONITOR CLOSELY, BED IN LOWEST AND LOCKED POSITION, ON TELE MONDOR SR HR 77 , LT UPPER ARM MID LINE IN PLACE ,CONT VANCO ORDERED
[2019-08-29] MEDS: IPRATROPIUM NEB FS 0.5 MG/2.5 ML AMPUL.NEB NEB SCH ×4 (07:58→19:17)
--- NOTE | 2019-08-29 08:30 | NUR ---
WEB PRODUCTION ASSISTANT NOTE NOTED SOB AND SHALLOW RESPIRATION INCREASED ON TO 3L STILL SAT 88% CALLED RT
--- NOTE | 2019-08-29 09:00 | NUR ---
RETAIL ADVERTISING SALES MANAGER NOTE STILL SAT 88% PLACED ON VENTURI MASK BY RT 50%FIL2 10L ,WILL MONITOR
[2019-08-29] MEDS: CEFTRIAXONE 1 G in IV D5W 50 ML IV SCH (09:39)
[2019-08-29] MEDS: FLUTICASONE/VILANTEROL 1 EACH BLST.W.DEV IH SCH (09:39)
[2019-08-29] MEDS: METHIMAZOLE (5MG) 5 MG TABLET PO SCH (09:40)
[2019-08-29] MEDS: LORATADINE 10 MG TABLET PO SCH (09:40)
[2019-08-29] MEDS: predniSONE 20 MG TABLET PO SCH (09:40)
[2019-08-29] MEDS: busPIRone 5 MG TABLET PO SCH ×2 (09:40→17:16)
[2019-08-29] MEDS: GABAPENTIN 300 MG CAPSULE PO SCH ×3 (09:40→17:16)
[2019-08-29] MEDS: SPIRONOLACTONE 25 MG TABLET PO SCH (09:40)
[2019-08-29] MEDS: ENOXAPARIN SODIUM 40 MG/0.4 ML DISP.SYRIN SQ SCH (09:41)
[2019-08-29] MEDS: METOPROLOL TARTRATE 25 MG TABLET PO SCH ×2 (09:42→17:16)
[2019-08-29] MEDS: CLOTRIMAZOLE 1% 15 GM TUBE TP SCH ×2 (09:43→17:16)
[2019-08-29] MEDS: PANTOPRAZOLE 40 MG TABLET.DR PO SCH (09:44)
--- NOTE | 2019-08-29 10:16 | NUR ---
RT Pt was hypoxic on 2L nasal cannula, so O2 was increased to 5L nasal cannula by RN. Pt showed signs of SOB with pursed lip breathing and shallow breathes. PRN HHN tx was given with no improvement. Pt was placed on venturi mask post tx which pt was still had shallow breathes with desaturation. Pt was placed on BiPAP and SpO2 improved immediately. BiPAP alarms are set and audible with BVM by bedside. BiPAP is plugged into red outlet. Will continue to monitor. Addendum: 08/29/19 at 1029 by JAVIER CANCHOLA RT Amended: Links added.
--- NOTE | 2019-08-29 10:30 | NUR ---
TELECINE OPERATOR NNOTE PER RT PLACED ON BIPAP SETTING ORDERED DUE TO RESPIRATION STILL SHALLOW ANS SOB SAT 887% , WILL MONITOR
--- NOTE | 2019-08-29 10:36 | NUR ---
RT Pt became agitated and is refusing BiPAP. Pt was placed on 6L nasal cannula tolerating well. Family by bedside, DEIRDRE Esparza notified and aware. Addendum: 08/29/19 at 1054 by JAVIER CANCHOLA RT Amended: Links added.
--- NOTE | 2019-08-29 10:44 | NUR ---
GLASSWARE DEFECT REPAIRER NOTE REFUSED BIPAP, PLACED 6L OF OF VIA NC ,SAT 93% AT THIS TIME, WILL MONITOR
--- NOTE | 2019-08-29 12:58 | NUR ---
telecommunication engineer note seen by dr silva notifyed that patient is having dry cough and easily desat sat 88% aware that on 12l of . with new order given chest x ray procalcitonin and cough Meds simple mask
[2019-08-29] MEDS ORDERED: GUAIFENESIN 300 MG/15 ML UDC PO PRN (13:00)
[2019-08-29 13:40] LABS: ABG BASE EXCESS 2.8 mmol/L; ABG OXYGEN SATURATION 92.9 % (92.0-98.5); ABG PCO2 46.3 mmHg (35.0-45.0); ABG PH 7.402 (7.350-7.450); ABG PO2 68.4 mmHg (75.0-100.0); AaDO2 308.5 mmHg; COHb 0.3 % (0.5-1.5); MetHb 0.3 % (0.0-1.5); O2Hb 92.3 % (94.0-97.0); VENT MODE, BG SIMPLE MASK
[2019-08-29 13:46] LABS: SITE, ABG Left Radial
--- NOTE | 2019-08-29 13:48 | NUR ---
PRODUCE SPECIALIST NOTE PER DR YANELIS TELLO TO DO ABG ,RT NOTIFIED
[2019-08-29] MEDS: GUAIFENESIN/D-METHORPHAN HB 5 ML UDC PO PRN ×2 (14:22→21:55)
--- NOTE | 2019-08-29 14:46 | NUR ---
SECURITY POLICE OFFICER NOTE C\O DRY COUGH ROBITUSSIN PO GIVEN ,WILL F\U
--- NOTE | 2019-08-29 14:59 | NUR ---
INDUSTRIAL CHEMIST NOTE ABG RESULT REPORTED TO DR HILARIO BY RT ,NO NEW ORDER GIVEN AT THIS TIME, BACK TO 6L OF BY MONSE SAT 89-90% Addendum: 08/29/19 at 1511 by BREE WALTERS RN sat 88% on breathing tx by rt,chest ray done as ordered
[2019-08-29] MEDS ORDERED: FEE PK DOSING 1 MIN EA MC ONE (15:57)
[2019-08-29] MEDS ORDERED: VANCOMYCIN 1 GM in IV D5W 250 ML IV ONE (16:00)
[2019-08-29] MEDS: VANCOMYCIN 1 GM in IV D5W 250 ML IV SCH (17:17)
--- NOTE | 2019-08-29 18:11 | NUR ---
VICE PRESIDENT TAX NOTE CONSENT FOR CT ANGIO OBTAINED ,PATIENT SIGNED Addendum: 08/29/19 at 1828 by BREE WALTERS RN FED BY PHERESIS SPECIALIST ATE 50 % OF FOOD ,ALL NEEDS ATTENDED, WILL CONT TO MONITOR CLOSELY
--- NOTE | 2019-08-29 19:15 | NUR ---
RN OPENING NOTE: PATIENT IN BED, AWAKE, AND VERBALLY RESPONSIVE. A&OX1-2. NO RESPIRATORY DISTRESS. NO PAIN. PATIENT ON BREATHING TX AT THIS TIME SATTING AT 97%. HOB ELEVATED. PATIENT ON MECHANICAL SOFT DIET. SAFETY MEASURES IMPLEMENT. BED IN LOWEST POSITION. SIDE RAILS X 2 UP. CALL LIGHT PLACED WITHIN REACH. WILL CONT. TO MONITOR.
[2019-08-29] MEDS: SENNOSIDES 8.6 MG TABLET PO SCH (21:41)
[2019-08-29] MEDS: ATORVASTATIN 10 MG TABLET PO SCH (21:41)
[2019-08-29] MEDS: MONTELUKAST SODIUM (10MG) 10 MG TABLET PO SCH (21:41)
[2019-08-29] MEDS: MIRTAZAPINE 15 MG TABLET PO SCH (21:42)
[2019-08-30] VITALS (7 sets, daily range): BP systolic 109–145; BP diastolic 61–97
[2019-08-30] MEDS: ALBUTEROL FS 2.5 MG/3 ML VIAL.NEB NEB SCH ×6 (03:30→22:51)
[2019-08-30] MEDS: AZITHROMYCIN 250 MG TABLET PO SCH (05:19)
[2019-08-30] MEDS: VANCOMYCIN 1 GM in IV D5W 250 ML IV SCH ×2 (05:19→17:50)
--- NOTE | 2019-08-30 06:58 | NUR ---
RN CLOSING NOTE, PATIENT IN BED, ASLEEP AT THIS TIME, BUT EASILY AROUSES TO VERBAL STIMULI, BREATHING EVEN AND UNLABORED, NO SOB/ACUTE RESPIRATORY DISTRESS AT THIS TIME, ON 5-6LPM VIA NC WITH OPTIMAL O2 SATURATION 93-99%, LAST NIGHT SHE ONLY TOLERATED BIPAP FOR 30MIN, THEN SHE REFUSED TO BE PLACED IN BIPAP, NO SIGNIFICANT CHANGE IN CONDITION, WILL ENDORSE TO ONCOMING NURSE FOR CONTINUITY OF CARE.
[2019-08-30 07:10] LABS: BASOPHILS # (AUTO) 0.1 /CMM (0.0-0.2); BASOPHILS % (AUTO) 0.6 % (0.0-2.0); EOSINOPHILS % (AUTO) 1.3 % (0.0-6.0); HEMATOCRIT 33 % (33-45); HEMOGLOBIN 10.7 g/dL (11.5-14.8); LYMPHOCYTES # (AUTO) 2.9 /CMM (0.8-4.8); LYMPHOCYTES % (AUTO) 24.2 % (20.0-44.0); MEAN CORPUSCULAR HGB CONC 32 g/dl (31.0-36.0); MEAN CORPUSCULAR VOLUME 91 fL (82-100); MONOCYTES # (AUTO) 0.4 /CMM (0.1-1.30); MONOCYTES % (AUTO) 3.3 % (2.0-12.0); NEUTROPHILS # (AUTO) 8.3 /CMM (1.8-8.9); NEUTROPHILS % (AUTO) 70.6 % (43.0-81.0); PLATELET COUNT (AUTO) 470 /CMM (150-450); RED BLOOD CELL COUNT(AUTO) 3.66 MIL/uL (4.0-5.2); WHITE BLOOD COUNT (AUTO) 11.8 K/uL (4.3-11.0)
--- NOTE | 2019-08-30 07:12 | NUR ---
RN OPENING NOTES RECEIVED PT AWAKE AND RESTING IN BED COMFORTABLY, DENIES ANY PAIN OR DISCOMFORT AT THIS TIME. SHE IS AOX2, VERBAL, NONAMBULATORY. SHE IS ON 6L OF O2 VIA NC, TOLERATING WELL, SHOWS NO S/SX OF RESP DISTRESS OR SOB. TELE MONITOR SHOWING SR. SHE HAS A JUAN MIDLINE, PATENT AND INTACT. SHE IS ON A MECHANICAL SOFT DIET WITH CRUSHED MEDS, TOLERATING WELL. SHE IS SCHEDULED FOR A CT PULMONARY ANGIOGRAM. SAFETY MEASURES HAVE BEEN IMPLEMENTED, CALL LIGHT IS WITHIN REACH, BED IS IN LOWEST AND LOCKED POSITION, SIDE RAILS UP X2, WILL CONTINUE TO MONITOR FOR ANY CHANGES.
[2019-08-30] MEDS: IPRATROPIUM NEB FS 0.5 MG/2.5 ML AMPUL.NEB NEB SCH ×4 (07:21→19:35)
--- NOTE | 2019-08-30 07:30 | NUR ---
RN CLOSING NOTES PATIENT IS RESTING IN BED COMFORTABLY AT THIS TIME, DENIES ANY PAIN OR DISCOMFORT AT THIS TIME. SHE IS NOW ON 3L OF , TOLERATING WELL, NO SOB OR RESP DISTRESS, BREATHING IS EVEN AND UNLABORED. PT NEEDS WERE ADDRESSED, VITAL SIGNS ARE STABLE, NO ACUTE CHANGES OCCURRED THROUGHOUT THE SHIFT. SAFETY MEASURES HAVE BEEN IMPLEMENTED, CALL LIGHT IS WITHIN REACH, BED IS IN LOWEST AND LOCKED POSITION, SIDE RAILS UP X2, PT HAS BEEN ENDORSED TO NIGHTSHIFT RN FOR CONTINUITY OF CARE. Addendum: 08/30/19 at 2002 by KARMA ESTRELLA RN WRONG TIME DOCUMENTED, MEANT FOR 1929
--- NOTE | 2019-08-30 07:39 | NUR ---
decreased oxygen flow from 6 lpm to 3 lpm o2 due to spo2 100%, rn notified. Addendum: 08/30/19 at 0740 by DELON PEARSON RT Amended: Links added.
[2019-08-30 07:42] LABS: CALCIUM, SERUM 9.4 mg/dL (8.5-10.1); CREATININE 0.6 mg/dL (0.6-1.3); POTASSIUM 4.2 mmol/L (3.5-5.1)
[2019-08-30] MEDS: PANTOPRAZOLE 40 MG TABLET.DR PO SCH (07:43)
[2019-08-30] MEDS: CEFTRIAXONE 1 G in IV D5W 50 ML IV SCH (07:43)
[2019-08-30] MEDS: CLOTRIMAZOLE 1% 15 GM TUBE TP SCH ×2 (09:00→17:00)
[2019-08-30] MEDS: busPIRone 5 MG TABLET PO SCH ×2 (09:58→17:51)
[2019-08-30] MEDS: GABAPENTIN 300 MG CAPSULE PO SCH ×3 (09:58→17:51)
[2019-08-30] MEDS: LORATADINE 10 MG TABLET PO SCH (09:58)
[2019-08-30] MEDS: SPIRONOLACTONE 25 MG TABLET PO SCH (09:58)
[2019-08-30] MEDS: predniSONE 20 MG TABLET PO SCH (09:58)
[2019-08-30] MEDS: METHIMAZOLE (5MG) 5 MG TABLET PO SCH (09:58)
[2019-08-30] MEDS: FLUTICASONE/VILANTEROL 1 EACH BLST.W.DEV IH SCH (09:59)
[2019-08-30] MEDS: METOPROLOL TARTRATE 25 MG TABLET PO SCH ×2 (10:00→17:51)
[2019-08-30] MEDS: ENOXAPARIN SODIUM 40 MG/0.4 ML DISP.SYRIN SQ SCH (10:08)
[2019-08-30] MEDS ORDERED: IOHEXOL-350 100 ML VIAL IV ONE (10:38)
[2019-08-30] MEDS ORDERED: CT SWABBABLE VALVE TRANS SET 1 EA INFUS.SET MC ONE (10:39)
[2019-08-30] MEDS ORDERED: IV NS 0.9% 250 ML IV ONE (10:39)
--- NOTE | 2019-08-30 11:06 | NUR ---
CT SCAN CALLED PATIENT UNABLE TO TOLERATE PROCEDURE AND PATIENT REFUSING TO CONTINUE TEST,DR. HURD NOTIFIED AND MADE AWARE,PROCEDURE CANCELLED PATIENT UNABLE TO TOLERATE PROCEDURE.
--- NOTE | 2019-08-30 19:30 | NUR ---
SOFT DRINK POWDER MIXER NOTE: RECEIVED PT ON BED ALERT AND ORIENTED X2, VERBALLY RESPONSIVE. NO APPARENT DISTRESS NOTED. DENIES PAIN AND DISCOMFORT AT THIS TIME. ON 3LPM NASAL CANNULA, SATURATING WELL. ON TELE MONITOR SINUS RHYTHM HR 67 BPM. LEFT UPPER ARM MIDLINE INTACT AND PATENT, FLUSHING WELL. KEPT CLEAN, DRY AND COMFORTABLE. CALL LIGHT PLACED WITHIN REACH. SAFETY AND FALL PRECAUTIONS OBSERVED AND MAINTAINED. WILL CONTINUE TO MONITOR PT
[2019-08-30] MEDS: MIRTAZAPINE 15 MG TABLET PO SCH (21:24)
[2019-08-30] MEDS: ATORVASTATIN 10 MG TABLET PO SCH (21:25)
[2019-08-30] MEDS: MONTELUKAST SODIUM (10MG) 10 MG TABLET PO SCH (21:25)
[2019-08-30] MEDS: SENNOSIDES 8.6 MG TABLET PO SCH (21:25)
--- NOTE | 2019-08-30 21:36 | NUR ---
CHIEF CUSTOMER OFFICER NOTE: RECEIVED A CALL FROM RADIOLOGY REGARDING PATIENT'S DUPLEX US RESULT ON BILATERAL LOWER EXT. LEFT A MESSAGE TO PNEUMATIC DRUM SANDER MD, STILL AWAITING RESPONSE. WILL CONTINUE TO MONITOR PT.
--- NOTE | 2019-08-30 22:00 | NUR ---
FIRST MATE NOTE: SUPERVISOR COSTUMING ROBERT DUGGAN CALLED BACK AND ORDERED LOVENOX 1MG/KG SQ Q12HRS AND DC'D LOVENOX 40MG DAILY. READ BACK COMPLETED, ORDER CARRIED OUT AND DONE. WILL CONTINUE TO MONITOR PT.
[2019-08-30] MEDS: ENOXAPARIN SODIUM 80 MG/0.8 ML DISP.SYRIN SQ SCH (22:14)
[2019-08-31] VITALS: BP 124/71
--- NOTE | 2019-08-31 00:41 | NUR ---
RT NOTE PT IS REFUSING TO USE NOC BIPAP ORDERED. DEIRDRE MCDERMOTT NOTIFIED. NO DISTRESS NOTED. AMBU BAG AT BED SIDE. Addendum: 08/31/19 at 0042 by ANTHONY ROSSI RT Amended: Links added.
[2019-08-31] MEDS: ALBUTEROL FS 2.5 MG/3 ML VIAL.NEB NEB SCH ×6 (03:04→23:30)
[2019-08-31 04:00] VITALS: BP 115/60
[2019-08-31] MEDS: VANCOMYCIN 1 GM in IV D5W 250 ML IV SCH ×2 (04:42→16:51)
[2019-08-31] MEDS: AZITHROMYCIN 250 MG TABLET PO SCH (05:07)
--- NOTE | 2019-08-31 06:34 | NUR ---
PLUMBING CONTRACTOR NOTE: NO CHANGES NOTED THROUGHOUT THE SHIFT. NO APPARENT DISTRESS NOTED. NO FACIAL GRIMACING OR ANY SIGNS OF PAIN NOTED. SINUS RHYTHM ON TELE MONITOR HR 70 BPM. ON 3LPM NASAL CANNULA, NO SOB NOTED. SATURATING WELL. LEFT UPPER ARM MIDLINE INTACT AND FLUSHING WELL. KEPT CLEAN, DRY AND COMFORTABLE. CALL LIGHT PLACED WITHIN REACH. ALL NEEDS ATTENDED. WILL ENDORSE TO DAY SHIFT RN FOR CONTINUITY OF CARE
--- NOTE | 2019-08-31 07:35 | NUR ---
STEEL POST INSTALLER OPENING NOTE RECEIVED REPORT FROM PM NURSE.PATIENT IN BED. ALERT AND ORIENTED 3-4, VERBALLY RESPONSIVE. NO APPARENT DISTRESS NOTED. DENIES PAIN AND DISCOMFORT AT THIS TIME. ON 3LPM NASAL CANNULA, SATURATING WELL. ON TELE MONITOR SINUS RHYTHM HR 78 BPM. LEFT UPPER ARM MIDLINE INTACT AND PATENT, FLUSHING WELL. CALL LIGHT IN REACH. SAFETY AND FALL PRECAUTIONS OBSERVED AND MAINTAINED. ISOLATION FOR MRSA NARES.WILL CONTINUE TO MONITOR.
[2019-08-31 07:40] LABS: CALCIUM, SERUM 9.5 mg/dL (8.5-10.1); CREATININE 0.7 mg/dL (0.6-1.3)
[2019-08-31] MEDS: PANTOPRAZOLE 40 MG TABLET.DR PO SCH (07:51)
[2019-08-31] MEDS: IPRATROPIUM NEB FS 0.5 MG/2.5 ML AMPUL.NEB NEB SCH ×4 (07:59→19:53)
[2019-08-31 08:00] VITALS: BP 116/67
--- NOTE | 2019-08-31 08:30 | NUR ---
LINK AND LINK KNITTING MACHINE OPERATOR NOTE SEEN BY OMER DE LA CRUZ TO D/C PATIENT.D/C ANTIBIOTICS WHILE DISCHARGE.O2 CHECKED ON RA.SATURATING 93-96%.WILL CONTINUE TO MONITOR.
[2019-08-31] MEDS: CEFTRIAXONE 1 G in IV D5W 50 ML IV SCH (09:10)
[2019-08-31] MEDS: METHIMAZOLE (5MG) 5 MG TABLET PO SCH (09:10)
[2019-08-31] MEDS: predniSONE 20 MG TABLET PO SCH (09:11)
[2019-08-31] MEDS: busPIRone 5 MG TABLET PO SCH ×2 (09:11→16:51)
[2019-08-31] MEDS: GABAPENTIN 300 MG CAPSULE PO SCH ×3 (09:11→16:51)
[2019-08-31] MEDS: METOPROLOL TARTRATE 25 MG TABLET PO SCH ×2 (09:11→16:52)
[2019-08-31] MEDS: SPIRONOLACTONE 25 MG TABLET PO SCH (09:11)
[2019-08-31] MEDS: LORATADINE 10 MG TABLET PO SCH (09:11)
[2019-08-31] MEDS: CLOTRIMAZOLE 1% 15 GM TUBE TP SCH ×2 (09:12→16:53)
[2019-08-31] MEDS: ENOXAPARIN SODIUM 80 MG/0.8 ML DISP.SYRIN SQ SCH ×2 (09:20→21:06)
[2019-08-31] MEDS: FLUTICASONE/VILANTEROL 1 EACH BLST.W.DEV IH SCH (09:32)
[2019-08-31 12:00] VITALS: BP 109/60
--- NOTE | 2019-08-31 14:00 | NUR ---
MOTION STUDY ANALYST NOTE DISCHARGE ORDER GOT CANCELLED BY PER DATA STORAGE SPECIALIST INFORMED BY CHARGE NURSE.WILL CONTINUE TO MONITOR.SPOKE TO CASE STORM SNYDER.LEFT MESSAGE TO WITH POSITIVE DVT RESULT.MADE AWARE THAT PATIENT ON LOVENOX.
[2019-08-31 16:00] VITALS: BP 113/72
--- NOTE | 2019-08-31 19:00 | NUR ---
SENIOR BUSINESS ANALYST CLOSING NOTE .PATIENT IN BED. ALERT AND ORIENTED 3-4, VERBALLY RESPONSIVE. NO APPARENT DISTRESS NOTED. DENIES PAIN AND DISCOMFORT AT THIS TIME. ON RA SATURATING WELL. ON TELE MONITOR SINUS RHYTHM . LEFT UPPER ARM MIDLINE INTACT AND PATENT, FLUSHING WELL. CALL LIGHT IN REACH. SAFETY AND FALL PRECAUTIONS OBSERVED AND MAINTAINED. ISOLATION FOR MRSA NARES.DISCHARGE ON HOLD PER .WILL ENDORSE TO PM NURSE FOR SIDDHARTHA.
--- NOTE | 2019-08-31 19:25 | NUR ---
TELE/RN NOTES PATIENT IN BED, RESTING COMFORTABLY AT THIS TIME. NO S/S OF ACUTE DISTRESS NOTED, RESPIRATION EVEN AND UNLABORED. NO SOB NOTED. ON O2 3LPM VIA NASAL CANULA, SATURATING 98%. PATIENT ALERT AND ORIENTED X3, DENIES ANY PAIN AT THIS TIME. LEFT UPPER ARM MIDLINE NOTED WITH NO S/S OF INFECTION/INFILTRATION. PATIENT ON TELE MONITORING WITH SINUS RHYTHM. SAFETY MAINTAINED, BED AT THE LOWEST LOCKED POSITION. CALL LIGHT WITHIN REACH. WILL CONTINUE TO MONITOR PATIENT PER PLAN OF CARE.
[2019-08-31 20:00] VITALS: BP_SYST 112; BP_SYST 113; BP_DIAS 72; BP_DIAS 76
[2019-08-31] MEDS: ATORVASTATIN 10 MG TABLET PO SCH (21:05)
[2019-08-31] MEDS: MIRTAZAPINE 15 MG TABLET PO SCH (21:05)
[2019-08-31] MEDS: MONTELUKAST SODIUM (10MG) 10 MG TABLET PO SCH (21:05)
[2019-08-31] MEDS: SENNOSIDES 8.6 MG TABLET PO SCH (21:05)
[2019-09-01] VITALS: BP 112/76
--- NOTE | 2019-09-01 00:46 | NUR ---
PATIENT REFUSING CARE, REFUSED VITAL SIGNS, PATIENT REFUSED, BREATHING TREATMENT AND BIPAP. RISKS AND BENEFITS EXPLAINED, PATIENT STILL DENIED.
[2019-09-01] MEDS: ALBUTEROL FS 2.5 MG/3 ML VIAL.NEB NEB SCH ×6 (03:30→23:09)
[2019-09-01 04:00] VITALS: BP 126/77
[2019-09-01] MEDS: AZITHROMYCIN 250 MG TABLET PO SCH (05:26)
[2019-09-01] MEDS: VANCOMYCIN 1 GM in IV D5W 250 ML IV SCH (05:26)
--- NOTE | 2019-09-01 05:36 | NUR ---
PATIENT REFUSE ZITHROMAX 500MG 2 TABS AT THIS TIME, RISKS AND BENEFITS EXPLAINED, PATIENT ALERT AND ORIENTED X 4, PATIENT STILL REFUSED. WILL CONTINUE TO MONITOR PATIENT.
--- NOTE | 2019-09-01 07:15 | NUR ---
TELE/RN NOTES PATIENT REMAINED IN BED, RESTING COMFORTABLY AT THIS TIME. NO S/S OF ACUTE DISTRESS NOTED, RESPIRATION EVEN AND UNLABORED. NO SOB NOTED. ON O2 3LPM VIA NASAL CANULA, SATURATING 98%. NO S/S OF PAIN NOTED. LEFT UPPER ARM MIDLINE NOTED WITH NO S/S OF INFECTION/INFILTRATION. TREATMENT RENDERED. MEDS GIVEN ORDERED, TOLERATED WELL, PATIENT ON TELE MONITORING WITH SINUS RHYTHM. ALL NEEDS ATTENDANT. SAFETY MAINTAINED, BED AT THE LOWEST LOCKED POSITION. CALL LIGHT WITHIN REACH. WILL ENDORSE TO AM SHIFT NURSE FOR SIDDHARTHA.
[2019-09-01] MEDS: IPRATROPIUM NEB FS 0.5 MG/2.5 ML AMPUL.NEB NEB SCH ×4 (07:36→19:43)
[2019-09-01 08:00] VITALS: BP 113/68
--- NOTE | 2019-09-01 08:10 | NUR ---
RN YASHIRA: pt.is A/Ox3, no pain now, no c/o now, SR, SBP over 100, O2sat. over 94%, no lab orders for today by report, Legs DVT+. continue same Lovenox doses per MD order by shift leader report, keep HOB over 40/HOCKEY PLAYER notified, pt.refused for Bipap over night by report
[2019-09-01] MEDS: CEFTRIAXONE 1 G in IV D5W 50 ML IV SCH (08:47)
[2019-09-01] MEDS: PANTOPRAZOLE 40 MG TABLET.DR PO SCH (08:47)
[2019-09-01] MEDS: ENOXAPARIN SODIUM 80 MG/0.8 ML DISP.SYRIN SQ SCH (08:48)
[2019-09-01] MEDS: FLUTICASONE/VILANTEROL 1 EACH BLST.W.DEV IH SCH (08:56)
[2019-09-01] MEDS: METHIMAZOLE (5MG) 5 MG TABLET PO SCH (09:12)
[2019-09-01] MEDS: SPIRONOLACTONE 25 MG TABLET PO SCH (09:13)
[2019-09-01] MEDS: predniSONE 20 MG TABLET PO SCH (09:13)
[2019-09-01] MEDS: LORATADINE 10 MG TABLET PO SCH (09:13)
[2019-09-01] MEDS: busPIRone 5 MG TABLET PO SCH ×2 (09:13→17:53)
[2019-09-01] MEDS: METOPROLOL TARTRATE 25 MG TABLET PO SCH ×2 (09:14→17:00)
[2019-09-01] MEDS: GABAPENTIN 300 MG CAPSULE PO SCH ×3 (09:14→17:53)
[2019-09-01] MEDS: CLOTRIMAZOLE 1% 15 GM TUBE TP SCH ×2 (09:29→17:54)
--- NOTE | 2019-09-01 09:30 | NUR ---
RN YASHIRA: pt.requested to inject Lovenox over R.shoulder sq, no any pain meds in eMAR, will s/w
[2019-09-01 12:07] VITALS: BP 92/48
--- NOTE | 2019-09-01 13:00 | NUR ---
RN YASHIRA: pt.c/o 3-04/07 acting legs pain, DVT+, no any pain meds in eMAR, Gabapentine onle, sent message for
--- NOTE | 2019-09-01 15:00 | NUR ---
INSPECTOR MATERIALS AND PROCESSES: pt.has active order for discharge, charge nurse called and got confirmed: hold pt in the hospital, , waiting new orders, was updated with pt.pain level
[2019-09-01 16:00] VITALS: BP 92/48
--- NOTE | 2019-09-01 18:00 | NUR ---
RN YASHIRA: pt.is A/Ox3, no pain now, no c/o, SR, SBP 92, hold BP meds, O2sat. WNL, all PM/skin/wound care done, will endorse next nurse to get pain meds PRN d/t pt.had 3-5/10 pain episodes, getting Gabapentine
[2019-09-01 20:00] VITALS: BP 100/49
--- NOTE | 2019-09-01 20:22 | NUR ---
PT REFUSING BIPAP. RN SUSHIL NOTIFIED. NO SIGNS OF RESP DISTRESS NOTED AT THIS TIME. AMBUBAG AT BEDSIDE.
--- NOTE | 2019-09-01 20:36 | NUR ---
TELE/RN NOTES PATIENT COMPLAIN OF PAIN IN HER BOTH LEGS AND LOWER BACK 07/08. CURRENTLY PATIENT DOES NOT HAVE PAIN MEDICATION FOR SEVERE PAIN. CALLED CHILLER TECHNICIAN OF [facility] LING RELAYED PATIENT CONDITION, VITAL SIGNS WITH NEW ORDER TO GIVE PATIENT MORPHINE 2MG IVP Q4HR PRN. ALL ORDER NOTED AND CARRIED OUT.
[2019-09-01] MEDS: MONTELUKAST SODIUM (10MG) 10 MG TABLET PO SCH (21:00)
[2019-09-01] MEDS ORDERED: MORPHINE SULFATE INJ 2 MG/ML DISP.SYRIN IV PRN (21:00)
[2019-09-01] MEDS: SENNOSIDES 8.6 MG TABLET PO SCH (21:01)
[2019-09-01] MEDS: ATORVASTATIN 10 MG TABLET PO SCH (21:01)
[2019-09-01] MEDS: MIRTAZAPINE 15 MG TABLET PO SCH (21:01)
[2019-09-01] MEDS: APIXABAN 5 MG TABLET PO SCH (21:07)
--- NOTE | 2019-09-01 21:15 | NUR ---
PATIENT REFUSED MORPHINE, SHE SAID, SHE CANT HAVE MORPHINE BECAUSE SHE HAD PREVIOUS BAD REACTION WITH IT, SHE SAID " it gave me heart attact". SHE SAID JUST CALL AND GET ME TYLENOL
--- NOTE | 2019-09-01 21:24 | NUR ---
WASTED MORPHINE WITH CHARGE NURSE
--- NOTE | 2019-09-01 21:26 | NUR ---
CALLED ROBERT DUGGAN AT THIS TIME, MADE HER AWARE AND RECEIVED NEW ORDER FOR TYLENOL. NOTED AND CARRIED OUT.
[2019-09-01] MEDS ORDERED: ACETAMINOPHEN 650 MG/20.3 ML UDC PO PRN (22:00)
[2019-09-02] VITALS: BP 102/67
[2019-09-02] MEDS: ALBUTEROL FS 2.5 MG/3 ML VIAL.NEB NEB SCH ×5 (03:52→19:49)
[2019-09-02 04:00] VITALS: BP 116/69
--- NOTE | 2019-09-02 06:52 | NUR ---
TELE/RN NOTES PATIENT IN BED, SLEEPING COMFORTABLY AT THIS TIME, EASILY AROUSABLE. NO S/S OF ACUTE DISTRESS NOTED, RESPIRATION EVEN AND UNLABORED. NO SOB NOTED. ON O2 1LPM VIA NASAL CANULA, SATURATING 98%. , NO S/S OF PAIN NOTED AT THIS TIME. LEFT UPPER ARM MIDLINE NOTED WITH NO S/S OF INFECTION/INFILTRATION. ALL DUE MEDS GIVEN ORDERED, TREATMENTS RENDERED ORDERED. PATIENT TOLERATED WELL. PATIENT ON TELE MONITORING WITH SINUS RHYTHM. SAFETY MAINTAINED, BED AT THE LOWEST LOCKED POSITION. CALL LIGHT WITHIN REACH. WILL ENDORSE TO AM SHIFT NURSE FOR SIDDHARTHA.
[2019-09-02 07:16] LABS: CALCIUM, SERUM 9.5 mg/dL (8.5-10.1); CREATININE 0.6 mg/dL (0.6-1.3); POTASSIUM 4.1 mmol/L (3.5-5.1)
--- NOTE | 2019-09-02 07:20 | NUR ---
TELE/RN OPENING NOTES PATIENT IN BED AWAKE, ALERT AND ABLE TO MAKE NEEDS KNOWN. NO PAIN OR ACUTE DISTRESS AT THIS TIME. RESPIRATION EVEN AND UNLABORED. SKIN IS DRY WARM TO TOUCH. PATIENT ON O2 1LPM VIA NASAL CANULA, SATURATING 98%. NOTED WITH LEFT UPPER ARM MIDLINE. INTACT AND PATENT. NO S/S OF INFECTION OR INFILTRATION. PATIENT ON TELE MONITORING WITH SINUS RHYTHM. ALL NEEDS ANTICIPATED. CALL LIGHT WITHIN REACHED. SAFETY MAINTAINED. BED LOCKED AND IN LOWEST POSITION. PLAN OF CARE DISCUSSED WITH PATIENT. WILL CONTINUE TO MONITOR CLOSELY.
[2019-09-02] MEDS: IPRATROPIUM NEB FS 0.5 MG/2.5 ML AMPUL.NEB NEB SCH ×4 (07:59→19:49)
[2019-09-02 08:00] VITALS: BP 105/56
[2019-09-02] MEDS: SPIRONOLACTONE 25 MG TABLET PO SCH (08:59)
[2019-09-02] MEDS: METHIMAZOLE (5MG) 5 MG TABLET PO SCH (08:59)
[2019-09-02] MEDS: PANTOPRAZOLE 40 MG TABLET.DR PO SCH (08:59)
[2019-09-02] MEDS: predniSONE 20 MG TABLET PO SCH (08:59)
[2019-09-02] MEDS: GABAPENTIN 300 MG CAPSULE PO SCH ×3 (08:59→16:43)
[2019-09-02] MEDS: busPIRone 5 MG TABLET PO SCH ×2 (09:00→16:43)
[2019-09-02] MEDS: LORATADINE 10 MG TABLET PO SCH (09:00)
[2019-09-02] MEDS: METOPROLOL TARTRATE 25 MG TABLET PO SCH ×2 (09:00→16:44)
[2019-09-02] MEDS: FLUTICASONE/VILANTEROL 1 EACH BLST.W.DEV IH SCH (09:01)
[2019-09-02] MEDS: APIXABAN 5 MG TABLET PO SCH ×2 (09:04→16:44)
--- NOTE | 2019-09-02 09:07 | NUR ---
TELE/RN NOTES MEDICATION METOPROLOL WAS HELD DUE TO B/P OF 105/56. PATIENT CONTINUES TO REMAIN IN STABLE CONDITION. WILL CONTINUE TO MONITOR CLOSELY.
[2019-09-02] MEDS: CLOTRIMAZOLE 1% 15 GM TUBE TP SCH ×2 (09:52→16:44)
[2019-09-02 12:00] VITALS: BP 112/75
--- NOTE | 2019-09-02 12:20 | NUR ---
follow up with rounding ,dr. kwon regarding patient status for discharge,no discharge per md.
[2019-09-02 12:49] LABS: BASOPHILS # (AUTO) 0.2 /CMM (0.0-0.2); BASOPHILS % (AUTO) 1.8 % (0.0-2.0); EOSINOPHILS % (AUTO) 1.6 % (0.0-6.0); HEMATOCRIT 35 % (33-45); HEMOGLOBIN 11.2 g/dL (11.5-14.8); LYMPHOCYTES # (AUTO) 2.9 /CMM (0.8-4.8); LYMPHOCYTES % (AUTO) 26.9 % (20.0-44.0); MEAN CORPUSCULAR HGB CONC 32 g/dl (31.0-36.0); MEAN CORPUSCULAR VOLUME 92 fL (82-100); MONOCYTES # (AUTO) 0.4 /CMM (0.1-1.30); MONOCYTES % (AUTO) 3.7 % (2.0-12.0); NEUTROPHILS # (AUTO) 7.2 /CMM (1.8-8.9); PLATELET COUNT (AUTO) 485 /CMM (150-450)
[2019-09-02 16:00] VITALS: BP 118/72
[2019-09-02] MEDS ORDERED: ACETAMINOPHEN 325 MG TABLET PO PRN (16:00)
--- NOTE | 2019-09-02 17:30 | NUR ---
MS/RN NOTES INFORMED PATIENT THAT SHE IS GOING BACK TO HER SNF ( [facility] ). PATIENT REFUSED BODY ASSESSMENT AND PHOTOS. PATIENT STATED THAT " THEY HAVE BEEN TAKING PICTURES, I DONT WANT TO DO IT ANYMORE." EXPLAINED RISK AND BENEFITS. PATIENT CONTINUES TO REFUSE. PATIENT CONTINUES TO REMAIN IN STABLE CONDITION. WILL CONTINUE TO MONITOR.
--- NOTE | 2019-09-02 18:48 | NUR ---
TELE/RN CLOSING NOTES PATIENT CONTINUES TO REMAIN IN STABLE CONDITION THROUGHOUT THE SHIFT. PROVIDED COMFORT AND SAFETY. PATIENT WILL BE DISCHARGED TO [facility]. REPORT WAS GIVEN TO DEIRDRE ZAMORA. ENDORSED TO NURSE FOR SIDDHARTHA. ALL DISCHARGE PAPERS WAS PREPARED. ALL NEEDS ANTICIPATED. CALL LIGHT WITHIN REACHED. WILL CONTINUE TO MONITOR CLOSELY.
--- NOTE | 2019-09-02 19:45 | NUR ---
MS RN RECEIVE PT IN BED PT AWAKE A/O X 3, STABLE AND NOT IN DISTRESS. NO SOB. NO C/O OF PAIN. WILL CONT TO [facility] FOR DISCHARGE AWAITING AMBULANCE
[2019-09-02 21:18] VITALS: BP 127/67
--- NOTE | 2019-09-02 21:37 | NUR ---
PATIENT DISCHARGE PATIENT LEFT AT 2118 VIA GURNEY MID LEVEL PROJECT MANAGER [facility], PATIENT ON STABLE CONDITION NO S/S OF DISTRESS NOTED, HEALTH EDUCATION AND EXIT CARE WAS PROVIDED, EDUCATION ABOUT DISEASE AND RISKS AND BENEFITS FOLLOW UP CARE PROVIDED, VERBALIZED UNDERSTANDING. DOCUMENTS WAS PROVIDED TO EMT. CONTINUE MEDICATION PRESCRIPTION WAS PROVIDED. NO C/O OF PAIN, NO SOB. VS STABLE. ON 2LPM [facility] 02 SAT AT 96% ALL BELONGINGS WAS TAKEN, PATIENT APPRECIATIVE TO NURSES AND THANKFUL. PT REFUSES PICTURE TO BE TAKEN BODY ASSESSMENT CANNOT BE DONE PT VERBALIZED"NO PICTURES" I AM TIRED. DESPITE EXPLAINING RISKS AND BENEFITS.
--- NOTE | 2019-09-02 21:42 | NUR ---
JUAN MIDLINE REMOVED BY DAY SHIFT RN
[2019-09-08] MEDS ORDERED: APIXABAN 5 MG TABLET PO SCH (09:00)
== END 2019-09-02 21:19 | DRG 871 ==
LOC: ER 23:37 → TELE-TD 08-24 02:14 → TELE1 08-25 10:22 → MEDSG1 09-02 18:19
PROVIDERS: ADMIT Internal Medicine; ATTEND Internal Medicine
PROC: 5A09357 Assistance with Respiratory Ventilation, Less than 24 Consecutive Hours, Continuous Positive Airway Pressure (ICD-10-PCS; 2019-08-24)
PROC: 05HC33Z Insertion of Infusion Device into Left Basilic Vein, Percutaneous Approach (ICD-10-PCS; principal; 2019-08-27)
PROC: B54NZZA Ultrasonography of Left Upper Extremity Veins, Guidance (ICD-10-PCS; 2019-08-27)
DX: A41.9 Sepsis, unspecified organism (principal); J96.01 Acute respiratory failure with hypoxia; J15.9 Unspecified bacterial pneumonia; J69.0 Pneumonitis due to inhalation of food and vomit; G93.40 Encephalopathy, unspecified; I82.412 Acute embolism and thrombosis of left femoral vein; E66.2 Morbid (severe) obesity with alveolar hypoventilation; K21.9 Gastro-esophageal reflux disease without esophagitis; Z86.73 Personal history of transient ischemic attack (TIA), and cerebral infarction without residual deficits; F09 Unspecified mental disorder due to known physiological condition; I10 Essential (primary) hypertension; Z66 Do not resuscitate; D72.829 Elevated white blood cell count, unspecified; G25.81 Restless legs syndrome; E66.9 Obesity, unspecified; Z68.26 Body mass index [BMI] 26.0-26.9, adult; K59.00 Constipation, unspecified; E05.90 Thyrotoxicosis, unspecified without thyrotoxic crisis or storm; D63.8 Anemia in other chronic diseases classified elsewhere; J42 Unspecified chronic bronchitis; K29.70 Gastritis, unspecified, without bleeding; Z74.01 Bed confinement status
CPT/HCPCS: 36415; 36600; 71045-TC; 74018; 80048-TC; 80053-TC; 80061-TC; 80076-TC; 80202-TC; 82803-TC; 82962-TC; 83605-TC; 83880; 84443-TC; 84484-TC; 85025-TC; 87040-TC; 87081-TC; 93307-TC; 93970-TC; 94760-TC; 94762-TC; 94799-TC; 99082-TC; G0378; J0456; J0696; J1650; J2270; J2405; J2543; J3370; J7030; J7040; J7050; J7060; Q9967

== ENCOUNTER 2020-05-17 10:15 | Inpatient (IN) | payer MEDICARE, OTHER ==
[~2020-05-17] VITALS: Ht 167.6 cm; Wt 68.0 kg
[~2020-05-17 10:15] MED LIST: ACET-868 PO; ACET125T3 PO; ASCO500C18 PO; ASPI-1152 PO; ATOR10TA PO; BACL10TA PO; BUSP5TAB3 PO; CYAN-6 PO; ENOX40DI SQ; FLUT1BLS IH; GABA-534 PO; GUAI100S11 PO; HYDR-3974 PO; IPRA3AMP23 IH; LACT1CAP94 PO; LORA10TA7 PO; MAGN400T26 PO; METH5TAB6 PO; METO25TA6 PO; MIRT15TA7 PO; MONT10TA22 PO; MULT-447 PO; NIFE30TA91 PO; PANT40TA4 PO; POLY15DR40 EACHEYE; PRED20TA PO; SENN-18 PO; SPIR25TA6 PO; TRAM50TA2 PO; ZINC1CAP2 PO; ZOLP5TAB8 PO
[2020-05-17 11:00] LABS: BASOPHILS % (AUTO) 0.4 % (0.0-2.0); EOSINOPHILS % (AUTO) 0.1 % (0.0-6.0); HEMATOCRIT 34 % (33-45); HEMOGLOBIN 10.6 g/dL (11.5-14.8); LYMPHOCYTES % (AUTO) 17.6 % (20.0-44.0); MEAN CORPUSCULAR HGB CONC 31 g/dl (31.0-36.0); MEAN CORPUSCULAR VOLUME 89 fL (82-100); MONOCYTES # (AUTO) 0.4 /CMM (0.1-1.30); MONOCYTES % (AUTO) 3.9 % (2.0-12.0); NEUTROPHILS # (AUTO) 8.9 /CMM (1.8-8.9); PLATELET COUNT (AUTO) 297 /CMM (150-450); RED BLOOD CELL COUNT(AUTO) 3.83 MIL/uL (4.0-5.2); WHITE BLOOD COUNT (AUTO) 11.4 K/uL (4.3-11.0)
[2020-05-17 11:09] LABS: CALCIUM, SERUM 8.4 mg/dL (8.5-10.1); CARBON DIOXIDE 27 mmol/L (21-32); CHLORIDE 107 mmol/L (98-107); GLUCOSE 121 mg/dL (74-106); POTASSIUM 3.6 mmol/L (3.5-5.1); SODIUM SERUM 141 mmol/L (136-145); UREA NITROGEN, BLOOD 17 mg/dL (7-18)
--- NOTE | 2020-05-17 11:15 | NUR ---
assumed pt care. pt is on bed alert nad awake.
--- NOTE | 2020-05-17 11:17 | NUR ---
pt received in bed. aaox2. in mild resp distress, breathing rapid. pt is noted with ana maria and tomasa. per reports. pt was brought in from snf for fever that has been going on since yesterday. upon presentation, pt was noted with 100.8 temp. pt already have iv on r hand 24g by snf. additional r ac 20g. pt is on o2 via nc @ 4lpm satting at 94%. pt is on monitor
[2020-05-17 11:20] LABS: ALANINE AMINOTRANSFERASE 25 U/L (12-78); ALBUMIN 2.8 g/dL (3.4-5.0); ALKALINE PHOSPHATASE 62 U/L (46-116); ASPARTATE AMINOTRANSFERASE 23 U/L (15-37); BILIRUBIN,TOTAL 0.1 mg/dL (0.2-1.0); TOTAL PROTEIN, SERUM 7.1 g/dL (6.4-8.2)
[2020-05-17] MEDS ORDERED: GABA-532 PO (11:22)
[2020-05-17] MEDS ORDERED: LANS15CA13 PO (11:22)
[2020-05-17] MEDS ORDERED: MAG30ORA PO (11:22)
[2020-05-17] MEDS ORDERED: NALO25TA PO (11:22)
[2020-05-17] MEDS ORDERED: PYRI25TA4 PO (11:22)
[2020-05-17] MEDS ORDERED: METF-881 PO (11:22)
[2020-05-17] MEDS ORDERED: GUAI237L83 PO (11:22)
[2020-05-17] MEDS ORDERED: MAGN400O6 PO (11:22)
[2020-05-17] MEDS ORDERED: NA P133E RC (11:22)
[2020-05-17] MEDS ORDERED: CALC500T13 PO (11:22)
[2020-05-17] MEDS ORDERED: GLUC1KIT IM (11:22)
[2020-05-17] MEDS ORDERED: CEFT1VIA15 IV (11:22)
[2020-05-17] MEDS ORDERED: DIAZ5TAB4 PO (11:22)
[2020-05-17] MEDS ORDERED: FLUT1DIS IH (11:22)
[2020-05-17] MEDS ORDERED: HYDR-4384 PO (11:22)
[2020-05-17] MEDS ORDERED: FURO-145 PO (11:22)
[2020-05-17] MEDS ORDERED: BISA10SU11 RC (11:22)
[2020-05-17] MEDS ORDERED: BALS60OI TP (11:27)
[2020-05-17] MEDS ORDERED: PIPERACILLIN /TAZOBACTAM 3.375 G in IV D5W 50 ML IV ONE (11:30)
[2020-05-17] MEDS ORDERED: IV NS 0.9% 1,000 ML BAG IV ONE (11:30)
[2020-05-17] MEDS ORDERED: VANCOMYCIN 1 GM in IV D5W 250 ML IV ONE (11:30)
--- NOTE | 2020-05-17 11:37 | NUR ---
DR VANNESSA ROSENBERG
[2020-05-17 11:59] LABS: APPEARANCE,URINE CLEAR (CLEAR); BILIRUBIN,URINE NEGATIVE (NEGATIVE); BLOOD, URINE TRACE-INTA Ery/uL (NEGATIVE); COLOR,URINE YELLOW (YELLOW); KETONES,URINE NEGATIVE (NEGATIVE); LEUKOCYTE ESTERASE ,URINE NEGATIVE (NEGATIVE); NITRITE, URINE POSITIVE (NEGATIVE); PH,URINE 5.5 (5.0-8.0); PROTEIN,URINE TRACE mg/dl (NEGATIVE); UGLUCOSE NEGATIVE (NEGATIVE); UROBILINOGEN,URINE 0.2 EU/dL (0.2)
[2020-05-17 12:05] LABS: BACTERIA,URINE 3+ /HPF (None Seen); COARSE GRANULAR CASTS,URINE Few /LPF (None Seen); MUCUS,URINE Few /LPF (None Seen); URINE AMORPHOUS URATE Few /HPF (None Seen)
--- NOTE | 2020-05-17 12:23 | NUR ---
room assignment: 103 tele
--- NOTE | 2020-05-17 12:52 | NUR ---
report given to dedra keller for isabel.
--- NOTE | 2020-05-17 13:16 | NUR ---
PT TRANSPORTED TO UNIT ON RMUNDAY WITH EMT AND RN AT BEDSIDE W/ ACLS PROTOCOL. NADNOTED DURING TRANSPORT.
[2020-05-17 14:13] VITALS: BP 105/46
--- NOTE | 2020-05-17 14:19 | NUR ---
RN OPENING NOTES RECEIVED PATIENT VIA GURROSE FROM ED. PT IS AOX3, VERBAL, ON BED REST, AND IS DROWSY BUT FOLLOWS COMMANDS. SHE IS ON 4L OF OXYGEN VIA NC, TOLERATING WELL, SATING AT 95-96%. CHEST UPON AUSCULTATION HAS BILATERAL CRACKLES UPON INSPIRATION. ABDOMEN IS DISTENDED, PT HAD BM TODAY. SAFETY MEASURES HAVE BEEN IMPLEMENTED, CALL LIGHT IS WITHIN REACH, BED IS IN LOWEST AND LOCKED POSITION, SIDE RAILS UP X2, WILL CONTINUE TO MONITOR FOR ANY CHANGES. MD CANDY HURD IS AWARE OF PT ARRIVAL
[2020-05-17] MEDS ORDERED: NA PHOS,M-B/NA PHOS,DI-BA 1 EA ENEMA RC PRN (15:00)
[2020-05-17] MEDS ORDERED: HYDROCODONE/APAP 5/325MG 1 EACH TABLET PO PRN (15:00)
[2020-05-17] MEDS ORDERED: MAGNESIUM HYDROXIDE 30 ML UDC PO PRN (15:00)
[2020-05-17] MEDS ORDERED: BISACODYL SUPP (10 MG) 10 MG/SUPP.RECT SUPP.RECT RC PRN (15:00)
[2020-05-17] MEDS ORDERED: GLUCAGON,HUMAN RECOMBINANT 1 MG/VIAL VIAL IV PRN (15:00)
[2020-05-17] MEDS ORDERED: MAG HYDROX/AL HYDROX/SIMETH 30 ML UDC PO PRN (15:00)
[2020-05-17 16:00] VITALS: BP 115/50
--- NOTE | 2020-05-17 16:00 | NUR ---
RN NOTES PT IS COMPLAINING OF PAIN 8/10 ON HIPS AND WAIST AREA, STATES ITS AN ACHING PAIN FROM PREVIOUS FALL. PRN NORCO ADMINISTERED AND POSITION HAS BEEN CHANGED WITH ADDED HOT PACK, WILL CONTINUE TO MONITOR FOR CHANGES.
[2020-05-17] MEDS: SENNOSIDES 8.6 MG TABLET PO SCH ×2 (16:36→17:00)
[2020-05-17] MEDS: busPIRone 5 MG TABLET PO SCH (16:37)
[2020-05-17] MEDS: CEFTRIAXONE 1 G in IV D5W 50 ML IV SCH (17:12)
[2020-05-17] MEDS: ACETAMINOPHEN 325 MG TABLET PO PRN (17:23)
--- NOTE | 2020-05-17 18:57 | NUR ---
RN CLOSING NOTES PATIENT IS RESTING COMFORTABLY IN BED AT THIS TIME. PT ATE COMPLETE 100% DINNER. PT STATES PAIN IN WAIST HAS SUBSIDED. PT NEEDS HAVE BEEN MET, VITAL SIGNS ARE STABLE, NO ACUTE CHANGES OCCURRED THROUGHOUT THE SHIFT. SAFETY MEASURES HAVE BEEN IMPLEMENTED, CALL LIGHT IS WITHIN REACH, BED IS IN LOWEST AND LOCKED POSITION, SIDE RAILS UP X2, WILL ENDORSE TO NIGHTSHIFT RN FOR SIDDHARTHA.
[2020-05-17 20:00] VITALS: BP 119/50
[2020-05-17] MEDS: ATORVASTATIN 10 MG TABLET PO SCH (21:32)
[2020-05-17] MEDS: GABAPENTIN 100 MG CAPSULE PO SCH (21:32)
[2020-05-18] VITALS (21 sets, daily range): BP systolic 91–149; BP diastolic 45–66
[2020-05-18] MEDS: GABAPENTIN 100 MG CAPSULE PO SCH ×3 (05:33→21:00)
--- NOTE | 2020-05-18 06:57 | NUR ---
RN notes Patient in bed awake, resting comfortably with distress noted. On 4 liters nasal cannula, tolerating well. Vital signs wnl as of this time. At about 0615, noted patient with difficulty breathing O2Sat at 89% on 4lpm via nasal cannula. Auscultated lung sound, with crackles. Suctioned through nasal large amount of semi loose yellowish thin to thick secretion. Put on non-rebreather mask at 15lpm. O2sat barely went up to 91% and after a few seconds started to go down up to 78%. Repositioned patient. Heart rate was 140bpm. Noted to have air hunger, lungs sounds crackles a
--- NOTE | 2020-05-18 07:08 | NUR ---
RN notes Patient in bed awake, resting comfortably with no distress noted. On 4 lpm via nasal cannula, tolerating well. Vital signs wnl as of this time. At about 0615, noted patient with difficulty breathing O2Sat at 89% on 4lpm via nasal cannula. Auscultated lung sounds, with crackles. Suctioned through nasal large amount of semi loose yellowish thin to thick secretion. Put on non-rebreather mask at 15lpm. O2sat barely went up to 91% and after a few seconds started to go down up to 78%. Repositioned patient. Heart rate was 140bpm. Noted to have air hunger using accessory muscles, lungs sounds crackles. Called Dr. Childress and told the doctor patient is in distress with O2sat at that time of 88%,SOB and heart rate was 140bpm and also patient is DNR. MD ordered to transfer patient to ICU. Noted and carried out. Patient was transferred to room 259 in ICU safely and endorsed to ICU nurse.
--- NOTE | 2020-05-18 07:22 | NUR ---
EXPERIMENTAL WORKER. TRANSFER THE PT FROM [facility] FOR DESATURATION. AT 0645. PT PI CONFUSED.VERY LETHARGIC,DOES NOT FOLLOW COMMANDS. RECEIVED THE PT WITH OXYGEN NONREBREATHER, SAT 100%. SHALLOW BREATHING. TEMPERATURE IS 103.5 AXILLARY.HOB ELEVATED. BACK END ENGINEER SHOWING S TACH RATE IS 130
[2020-05-18] MEDS ORDERED: PANTOPRAZOLE 40 MG TABLET.DR PO SCH (07:30)
--- NOTE | 2020-05-18 08:30 | NUR ---
HARM REDUCTION WORKER NOTES NOTIFIED DR HURD THAT PT HAS A TEMPERATURE OF 104.2F RECTALLY , COOLING MEASURED RENDERED , ON NON REBREATHER MASK @ 15LPM SPO2 OF 10% RR 30CPM , AOX1 CONFUSED LETHARGIC RESPONSIVE TO VERBAL STIMULI , HIGH RISK FOR ASPIRATIONS , F/U WITH MD IF WE CAN PUT PT ON COOLING BLANKET , INSERT FC AND PT HAS NO IVF ORDERED , AWAITING FOR CALL BACK
[2020-05-18] MEDS: MAGNESIUM OXIDE 400 MG TABLET PO SCH (08:46)
[2020-05-18] MEDS: FUROSEMIDE 20 MG TABLET PO SCH (08:46)
[2020-05-18] MEDS: METFORMIN XR 500 MG TAB.SR.24H PO SCH (08:46)
[2020-05-18] MEDS: SENNOSIDES 8.6 MG TABLET PO SCH ×2 (08:46→15:54)
[2020-05-18] MEDS: METHIMAZOLE (5MG) 5 MG TABLET PO SCH (08:46)
[2020-05-18] MEDS: busPIRone 5 MG TABLET PO SCH ×2 (08:46→15:54)
[2020-05-18] MEDS: CYANOCOBALAMIN 500 MCG TABLET PO SCH (08:47)
--- NOTE | 2020-05-18 09:10 | NUR ---
FORMULA BOTTLER NOTES RECEIVED PATIENT AOX1 CONFUSED , LETHARGIC , RESPONSIVE TO VERBAL STIMULI , ON 15LPM NON REBREATHER MASK WITH SPO2 OF 100% , ST 120 ON BEDSIDE MONITOR , IV OF R HAND# 24 , R AC # 20 PATENT AND INTACT SL , ALL NEEDS ATTENDED , WILL CONTINUE TO MONITOR
--- NOTE | 2020-05-18 09:34 | NUR ---
INSURANCE UNDERWRITER SALES NOTES PO MEDS HELD PT IS CONFUSED AND LETHARGIC , HIGH RISK FOR ASPIRATIONS , ON 15LPM NON REBREATHER MASK WITH SPO2 OF 100% , WILL CONTINUE TO MONITOR
[2020-05-18 10:24] LABS: ABG OXYGEN SATURATION 97.1 % (92.0-98.5); ABG PCO2 43.8 mmHg (35.0-45.0); ABG PH 7.319 (7.350-7.450); ABG PO2 92.8 mmHg (75.0-100.0); AaDO2 431.6 mmHg; COHb 0.3 % (0.5-1.5); MetHb 0.1 % (0.0-1.5); O2Hb 96.7 % (94.0-97.0); SITE, ABG Right Femoral; VENT MODE, BG NRB
--- NOTE | 2020-05-18 10:24 | NUR ---
PHOTOGRAPHIC ENGINEER NOTES RECEIVED A CALL BACK , PER OK FOR COOLING BLANKET , NO FC INSERTION , NO ANTI PYRETICS , ORDER CARRIED OUT
--- NOTE | 2020-05-18 10:25 | NUR ---
ADJUNCT SOCIOLOGY PROFESSOR NOTES RT CRUZ RELAYED ABG RESULTS TO DR HILARIO , ORDERED TO CHANGE O2 FROM NON REBREATHER MASK 15LPM TO SIMPLE MASK @ 10LPM , ORDER CARRIED OUT
--- NOTE | 2020-05-18 12:45 | NUR ---
LOCAL COMPANY TRUCK DRIVER NOTES SEEN AND EVALUATED BY DR HURD , DISCUSSED PT NEUROLOGICAL STATUS , LETHARGIC , CONFUSED , OPENS EYES NOTED WITH INCOMPREHENSIBLE SOUNDS , MD ASSESSED NEUROLOGICAL STATUS WELL , DISCUSSED LABS , NO COVID 19 MARKERS ORDERS , PER MD ORDER LDH , FERRITIN , C REACTIVE PROTEIN , D DIMER TELEPHONE ORDER CARRIED OUT , FEBRILE TEMP OF 104.2F COOLING MEASURES ONGOING , RELAYED ABG RESULTS PT ON SIMPLE MASK @ 10LPM , PER MD HE WILL TALK TO DR HILARIO TO DISCUSSED PLAN OF CARE
[2020-05-18] MEDS: DEXAMETHASONE SOD PHOSPHATE 10 MG/ML VIAL IV SCH (13:13)
[2020-05-18] MEDS ORDERED: DEXTROSE 50%-WATER 50 ML DISP.SYRIN IV PRN (14:00)
[2020-05-18] MEDS ORDERED: INSULIN REGULAR, HUMAN 100 UNIT/ML 3 ML VIAL SQ PRN (14:00)
[2020-05-18] MEDS ORDERED: Z GUARD REMEDY 4 OZ OINT TP PRN (15:00)
[2020-05-18] MEDS: CEFTRIAXONE 1 G in IV D5W 50 ML IV SCH (17:12)
--- NOTE | 2020-05-18 17:39 | NUR ---
INDUSTRIAL ORGANIZATION MANAGER NOTES PT IS CONFUSED LETHARGIC , PER OIL AND GAS SPECIALIST PT REFUSED LAB DRAW PT IS RESTING BLOOD RAW ON HER LEFT ARM ,
[2020-05-18] MEDS: BLOOD SUGAR DIAGNOSTIC 1 EACH STRIP IN SCH (17:40)
--- NOTE | 2020-05-18 17:48 | NUR ---
DIRECTOR MISSION NOTES NOTIFIED DR HURD THAT PT IS POSITIVE FOR MRSA NARES , FOLLOWED UP IF HE WANTS TO START PT ON BACTROBAN OINTMENT , AWAITING FOR RESPONSE
--- NOTE | 2020-05-18 18:07 | NUR ---
EXHIBIT CARPENTER NOTES RT ANTHONY TITRATED 10LPM SIMPLE MASK TO 6LPM , SPO2 OF 100% WITH NO SIGNS OF DISTRESS
--- NOTE | 2020-05-18 19:10 | NUR ---
RN NOTES RECEIVED PATIENT FROM DEIRDRE CHAWLA. PATIENT CONFUSED, LETHARGIC, OPENS EYES TO VERBAL STIMULI. ON OXYGEN 6L VIA SIMPLE MASK, TOLERATING WELL, NO SOB OR RESPIRATORY DISTRESS NOTED, SATURATING 100%. ON BEDSIDE MONITOR NSR WITH HR 80'S. IV SITES RIGHT HAND 24G AND RIGHT AC 20G BOTH FLUSHING, PATENT AND INTACT, SALINE LOCKED. SAFETY MEASURES IN PLACE; HOB ELEVATED, SIDE RAILS UP X2, BED LOCKED AND IN LOWEST POSITION. ISOLATION PRECAUTIONS IN PLACE DUE TO COVID19 SWAB STILL PENDING. WILL CONT TO MONITOR PT CLOSELY.
[2020-05-18] MEDS: ATORVASTATIN 10 MG TABLET PO SCH (21:05)
--- NOTE | 2020-05-18 22:32 | NUR ---
RN NOTES CRITICAL LAB RESULT CALLED BY SERA, MITTAL VIRUS SWAB POSITIVE. PAGED DR. HURD REGARDING RESULT, NO NEW ORDERS NOTED. ALSO MADE MD AWARE PATIENT MOANING/CRYING AND COMPLAINING OF MODERATE TO SEVER LOWER BACK ACHING PAIN 6-06/07, STILL COMPLAINING AFTER REPOSITIONING; MD ORDERED DILAUDID O.5MG IV Q4H PRN. WILL ATTEND TO ORDERS.
[2020-05-18] MEDS: HYDROMORPHONE 1 MG/1 ML DISP.SYRIN IV PRN (22:56)
[2020-05-19] VITALS (22 sets, daily range): BP systolic 84–113; BP diastolic 27–73
[2020-05-19] MEDS ORDERED: DEXTROSE 50%-WATER 50 ML DISP.SYRIN IV PRN (00:30)
[2020-05-19] MEDS: BLOOD SUGAR DIAGNOSTIC 1 EACH STRIP IN SCH ×5 (00:32→23:49)
[2020-05-19] MEDS: INSULIN REGULAR, HUMAN 100 UNIT/ML 3 ML VIAL SQ PRN ×4 (00:34→23:51)
[2020-05-19] MEDS: HYDROMORPHONE 1 MG/1 ML DISP.SYRIN IV PRN ×3 (03:08→15:23)
[2020-05-19] MEDS: GABAPENTIN 100 MG CAPSULE PO SCH ×3 (04:56→21:00)
--- NOTE | 2020-05-19 06:52 | NUR ---
RN CLOSING NOTES PATIENT ALERT AND ORIENTED X2, ABLE TO VERBALIZE NEEDS. NO FEVERS THROUGHOUT SHIFT. ON OXYGEN 5L VIA SIMPLE MASK, TOLERATING WELL, NO SOB OR RESPIRATORY DISTRESS NOTED, SATURATING 100%. ON BEDSIDE MONITOR NSR WITH HR 60'S. IV SITES RIGHT HAND 24G AND RIGHT AC 20G BOTH FLUSHING, PATENT AND INTACT, SALINE LOCKED. SAFETY MEASURES MAINTAINED. COVID19 POSITIVE; ISOLATION PRECAUTIONS IN PLACE. KEPT PT CLEAN, DRY, AND COMFORTABLE. ALL MD ORDERS ATTENDED, ALL NEEDS ANTICIPATED AND MET. WILL ENDORSE TO AM RN. WILL CONT TO MONITOR PT CLOSELY.
--- NOTE | 2020-05-19 07:15 | NUR ---
NAILING MACHINE FEEDER NOTES RECEIVED PATIENT RESTING IN BED , ALERT 1-2 MORE AWAKE , ABLE TO FOLLOW COMMANDS , ON 6LPM SIMPLE MASK WITH SPO2 OF 98% WITH NO SIGNS OF DISTRESS , SR 75 ON BEDSIDE MONITOR , IV OF R HAND # 24 AND R AC # 20 WITH NS @ TKO , ISOLATION PRECAUTION OBSERVED , WILL CONTINUE TO MONITOR
[2020-05-19] MEDS: PANTOPRAZOLE 40 MG VIAL IV SCH (07:30)
--- NOTE | 2020-05-19 07:31 | NUR ---
BARREL WASHER MACHINE NOTES RECEIVED ORDERED UNDER DR HURD TO ADD VANCOMYCIN AND CEFEPIME IV PER PHARMACY , DC CEFTRIAXONE , NO BACTROBAN PER MD . ORDER CARRIED OUT .
[2020-05-19] MEDS: busPIRone 5 MG TABLET PO SCH ×2 (07:55→16:13)
[2020-05-19] MEDS: METFORMIN XR 500 MG TAB.SR.24H PO SCH (07:55)
[2020-05-19] MEDS: FUROSEMIDE 20 MG TABLET PO SCH (07:56)
[2020-05-19] MEDS: SENNOSIDES 8.6 MG TABLET PO SCH ×2 (07:56→16:13)
[2020-05-19] MEDS: CYANOCOBALAMIN 500 MCG TABLET PO SCH (07:56)
[2020-05-19] MEDS: METHIMAZOLE (5MG) 5 MG TABLET PO SCH (07:56)
[2020-05-19] MEDS: MAGNESIUM OXIDE 400 MG TABLET PO SCH (07:56)
--- NOTE | 2020-05-19 08:00 | NUR ---
BAKERY HELPER NOTES O2 TITRATED FROM 6LPM MASK TO 4LPM NC , SPO2 OF 97% WITH NO SIGNS OF DISTRESS , WILL CONTINUE TO MONITOR
--- NOTE | 2020-05-19 08:30 | NUR ---
DIRECTOR SOFTWARE NOTES DISCUSSED TO DR HURD THAT PT IS MORE ALERT AWAKE X2 CONFUSED BUT ABLE TO FOLLOW SIMPLE COMMANDS , ON 4LPM NC WITH NO SIGNS OF DISTRESS , SPO2 OF 100% , PT IS POSITIVE FOR COVID 19 , VERIFIED IF HE WANTS TO START DIET PT IS MORE AWAKE BUT WITH HISTORY OF ASPIRATION PNA , PER MD ORDER SWALLOW EVAL AND KEEP PT NPO , NO LABS ORDERER WILL CONTINUE TO MONITOR SEEN AND EVALUATED BY DR HILARIO , DISCUSSED PT CHEST XRAY , VS WITH NO FEVER , AOX2 MORE AWAKE , FOLLOW COMMANDS , ON 4LPM NC WITH NO SIGNS OF DISTRESS TOLERATING WELL WITH SPO2 OF 95% , MD AWARE
[2020-05-19] MEDS: DEXAMETHASONE SOD PHOSPHATE 10 MG/ML VIAL IV SCH (08:39)
[2020-05-19] MEDS ORDERED: FEE PK DOSING 1 MIN EA MC ONE (09:22)
[2020-05-19] MEDS: CEFEPIME 2 GM in IV D5W 100 ML IV SCH ×2 (10:11→21:32)
[2020-05-19 10:36] LABS: CALCIUM, SERUM 8.7 mg/dL (8.5-10.1); CREATININE 0.8 mg/dL (0.6-1.3); POTASSIUM 4.4 mmol/L (3.5-5.1)
[2020-05-19] MEDS: VANCOMYCIN 1 GM in IV D5W 250 ML IV SCH (11:13)
[2020-05-19] MEDS: ENOXAPARIN SODIUM 40 MG/0.4 ML DISP.SYRIN SQ SCH (11:46)
--- NOTE | 2020-05-19 13:58 | NUR ---
OUTREACH ASSOCIATE NOTES TRANSFERRED PT TO ROOM 107 , REPORT GIVEN TO GAGAN AT BEDSIDE , PT STABLE , NO DISTRESS , NO ACUTE EVENS NOTED ,
--- NOTE | 2020-05-19 14:05 | NUR ---
RECEIVED PATIENT FROM DEIRDRE CHAWLA FROM ICU. NO SIGNS OF ACUTE DISTRESS NOTED. REPORT GIVEN. WILL CONTINUE TO MONITOR PATIENT FOR CHANGES.
--- NOTE | 2020-05-19 19:20 | NUR ---
RN OPENING NOTES: RECEIVED PT A/OX1; LETHARGIC. PATIENT IN BED RESTING COMFORTABLY. PATIENT IN NO S/SX OF ACUTE DISTRESS AT THIS TIME. NO SOB NOTED. PATIENT'S BREATHING IS EVEN AND UNLABORED. PATIENT IS ON 3 L OF OXYGEN VIA NC ; TOLERATING WELL. PATIENT ON TELE MONITORING READING SINUS RHYTHM HR IS @60s. NOTED IV SITEs: ON R HAND # 24 AND R AC # 20 AND ; PATENT IN INTACT,NO S/S OF INFECTION OR INFILTRATION. PATIENT ON DIAPERS. SAFETY MEASURES HAVE BEEN PROVIDED AND IMPLEMENTED. PATIENT BED ALARM IS ON. HEAD OF BED ELEVATED. BED IS LOCKED, IN LOWEST POSITION AND SIDE RAILS UP. CALL LIGHT WITHIN REACH OF THE PATIENT. ISOLATION PRECAUTIONS IN PLACE. WILL CONTINUE TO MONITOR AND REASSESS FOR ANY CHANGES.
--- NOTE | 2020-05-19 19:22 | NUR ---
RN CLOSING NOTE: PATIENT REMAINS IN BED. NO SIGNS OF ACUTE DISTRESS NOTED. SAFETY MEASURES IMPLEMENTED, BED IN LOWEST POSITION, LOCKED, SIDE RAILS UP, CALL LIGHT WITHIN REACH. ENDORSED TO DEIRDRE PLEITEZ FOR CONTINUITY OF CARE.
[2020-05-19] MEDS: ATORVASTATIN 10 MG TABLET PO SCH (21:29)
[2020-05-20] VITALS: BP 106/46
--- NOTE | 2020-05-20 | NUR ---
RN NOTES ACCU CHECK DONE; BLOOD SUGAR AT 135MG/DL; PT IS ON NPO - INSULIN COVERAGE NOT GIVEN. CHEMICAL OPERATIONS SPECIALIST INFORMED. WILL CONTINUE TO MONITOR
[2020-05-20 04:00] VITALS: BP 118/62
[2020-05-20] MEDS: GABAPENTIN 100 MG CAPSULE PO SCH ×3 (04:50→21:11)
[2020-05-20] MEDS: VANCOMYCIN 1 GM in IV D5W 250 ML IV SCH ×2 (04:51→23:11)
[2020-05-20] MEDS: BLOOD SUGAR DIAGNOSTIC 1 EACH STRIP IN SCH ×4 (05:30→23:38)
[2020-05-20] MEDS: INSULIN REGULAR, HUMAN 100 UNIT/ML 3 ML VIAL SQ PRN ×3 (05:31→23:52)
--- NOTE | 2020-05-20 05:34 | NUR ---
RN NOTES ACCU CHECK DONE; BLOOD SUGAR AT 146MG/DL; PT IS ON NPO - INSULIN COVERAGE NOT GIVEN. MARINE PHOTOGRAPHER INFORMED. WILL CONTINUE TO MONITOR
--- NOTE | 2020-05-20 06:27 | NUR ---
RN CLOSING NOTE: PATIENT REMAINS IN ROOM. NO SIGNS OF RESPIRATORY. SAFETY MEASURES IMPLEMENTED, BED IN LOWEST POSITION, LOCKED, SIDE RAILS UP, CALL LIGHT WITHIN REACH. ENDORSED TO INCOMING SHIFT RN FOR CONTINUITY OF CARE.
[2020-05-20 07:03] LABS: CALCIUM, SERUM 8.9 mg/dL (8.5-10.1); CREATININE 0.8 mg/dL (0.6-1.3); POTASSIUM 4.2 mmol/L (3.5-5.1)
[2020-05-20 08:00] VITALS: BP 130/78
--- NOTE | 2020-05-20 08:00 | NUR ---
RN OPENING NOTE: RECEIVED PATIENT IN BED THIS MORNING. PATIENT IS ALERT AND ORIENTED X1-2, KHMER SPEAKING BUT UNDERSTANDS ARABIC. RUNNING ON O2 3/MIN VIA NC, NO SIGNS OF RESPIRATORY DISTRESS NOTED. ON TELE MONITOR READING SR IN THE 60S. NO SIGNS OF ACUTE DISTRESS NOTED. NPO STATUS. RAC #20, C/D/I, FLUSHES WELL, NO SIGNS OF COMPLICATIONS NOTED. SAFETY MEASURES IMPLEMENTED, BED IN LOWEST POSITION, LOCKED, SIDE RAILS UP, CALL LIGHT WITHIN REACH. WILL CONTINUE TO MONITOR PATIENT FOR CHANGES.
[2020-05-20] MEDS: busPIRone 5 MG TABLET PO SCH ×2 (08:02→16:43)
[2020-05-20] MEDS: METFORMIN XR 500 MG TAB.SR.24H PO SCH (08:03)
[2020-05-20] MEDS: SENNOSIDES 8.6 MG TABLET PO SCH ×2 (08:03→16:43)
[2020-05-20] MEDS: CYANOCOBALAMIN 500 MCG TABLET PO SCH (08:03)
[2020-05-20] MEDS: MAGNESIUM OXIDE 400 MG TABLET PO SCH (08:03)
[2020-05-20] MEDS: FUROSEMIDE 20 MG TABLET PO SCH (08:03)
[2020-05-20] MEDS: METHIMAZOLE (5MG) 5 MG TABLET PO SCH (08:03)
[2020-05-20] MEDS: DEXAMETHASONE SOD PHOSPHATE 10 MG/ML VIAL IV SCH (08:07)
[2020-05-20] MEDS: PANTOPRAZOLE 40 MG VIAL IV SCH (08:07)
[2020-05-20] MEDS: CEFEPIME 2 GM in IV D5W 100 ML IV SCH ×2 (08:08→21:10)
[2020-05-20] MEDS: ENOXAPARIN SODIUM 40 MG/0.4 ML DISP.SYRIN SQ SCH (08:11)
--- NOTE | 2020-05-20 09:03 | NUR ---
WOUND CARE CONSULT: REVIEWED CHART, NURSING DOCUMENTATION AND PHOTOS WHICH SHOW SCARRING TO SACRUM EXTENDING TO BUTTOCKS WITH INCONTINENCE ASSOCIATED SKIN DAMAGE OVER PREVIOUS SCARRING, PRESENT ON ADMISSION. RECOMMENDATIONS MADE FOR SKIN PROTECTION. DISCUSSED WITH NURSING STAFF. PT IS ON FIRST STEP [facility]. WILL SEE PRN. VICK IN AGREEMENT WITH PLAN OF CARE. Addendum: 05/20/20 at 0909 by AMY BOYD WNDNU RASHES ALSO NOTED IN ADMISSION PHOTOS. RECOMMENDATIONS MADE AND DISCUSSED WITH NURSING STAFF.
[2020-05-20 12:00] VITALS: BP 128/76
--- NOTE | 2020-05-20 14:00 | NUR ---
1230 INSULIN NOT GIVEN D/T PATIENT'S REFUSAL OF LUNCH
[2020-05-20 16:00] VITALS: BP 121/80
[2020-05-20] MEDS: CLOTRIMAZOLE 1% 15 GM TUBE TP SCH (16:44)
--- NOTE | 2020-05-20 18:52 | NUR ---
RN CLOSING NOTE: PATIENT REMAINS IN BED. NO SIGNS OF RESPIRATORY DISTRESS NOTED. NO SIGNS OF ACUTE DISTRESS NOTED. PATIENT IS SR IN THE 60S ON TELE MONITOR. SAFETY MEASURES IMPLEMENTED, BED IN LOWEST POSITION, LOCKED, SIDE RAILS UP, CALL LIGHT WITHIN REACH. WILL ENDORSE TO DEIRDRE NELSON FOR CONTINUITY OF CARE.
--- NOTE | 2020-05-20 19:20 | NUR ---
RN OPENING NOTES: RECEIVED PT A/OX2; A LITTLE CONFUSED BUT COMPREHENSIBLE. PT IN BED RESTING COMFORTABLY. PATIENT IN NO S/SX OF ACUTE DISTRESS AT THIS TIME. NO SOB NOTED. PATIENT'S BREATHING IS EVEN AND UNLABORED. PATIENT IS ON 3 L OF OXYGEN VIA NC; TOLERATING WELL. PATIENT ON TELE MONITORING READING SINUS RHYTHM HR IS @60S. NOTED IV SITE ON R AC ; PATENT IN INTACT,NO S/S OF INFECTION OR INFILTRATION.SAFETY MEASURES HAVE BEEN PROVIDED AND IMPLEMENTED. PATIENT BED ALARM IS ON. HEAD OF BED ELEVATED. BED IS LOCKED, IN LOWEST POSITION AND SIDE RAILS UP. CALL LIGHT WITHIN REACH OF THE PATIENT. ISOLATION PRECAUTIONS IN PLACE. WILL CONTINUE TO MONITOR AND REASSESS FOR ANY CHANGES.
[2020-05-20 20:00] VITALS: BP 111/58
[2020-05-20] MEDS: ATORVASTATIN 10 MG TABLET PO SCH (21:11)
[2020-05-20] MEDS: HYDROMORPHONE 1 MG/1 ML DISP.SYRIN IV PRN (23:37)
[2020-05-21] VITALS: BP 111/62
[2020-05-21 04:00] VITALS: BP 110/56
[2020-05-21] MEDS: GABAPENTIN 100 MG CAPSULE PO SCH ×3 (05:08→21:21)
[2020-05-21] MEDS: BLOOD SUGAR DIAGNOSTIC 1 EACH STRIP IN SCH ×3 (06:12→18:03)
[2020-05-21] MEDS: INSULIN REGULAR, HUMAN 100 UNIT/ML 3 ML VIAL SQ PRN ×3 (06:14→18:18)
[2020-05-21 06:37] LABS: CALCIUM, SERUM 8.8 mg/dL (8.5-10.1); CREATININE 0.7 mg/dL (0.6-1.3); POTASSIUM 4.9 mmol/L (3.5-5.1)
[2020-05-21 08:00] VITALS: BP 125/66
--- NOTE | 2020-05-21 08:00 | NUR ---
RN OPENING NOTE: RECEIVED PATIENT IN BED. NO SIGNS OF RESPIRATORY DISTRESS. SAFETY MEASURES IMPLEMENTED, BED IN LOWEST POSITION, LOCKED, SIDE RAILS UP, CALL LIGHT WITHIN REACH. WILL CONTINUITY CARE.
[2020-05-21] MEDS: CYANOCOBALAMIN 500 MCG TABLET PO SCH (08:37)
[2020-05-21] MEDS: SENNOSIDES 8.6 MG TABLET PO SCH ×2 (08:37→16:45)
[2020-05-21] MEDS: MAGNESIUM OXIDE 400 MG TABLET PO SCH (08:37)
[2020-05-21] MEDS: METFORMIN XR 500 MG TAB.SR.24H PO SCH (08:37)
[2020-05-21] MEDS: DEXAMETHASONE SOD PHOSPHATE 10 MG/ML VIAL IV SCH (08:39)
[2020-05-21] MEDS: METHIMAZOLE (5MG) 5 MG TABLET PO SCH (08:39)
[2020-05-21] MEDS: PANTOPRAZOLE 40 MG VIAL IV SCH (08:40)
[2020-05-21] MEDS: ENOXAPARIN SODIUM 40 MG/0.4 ML DISP.SYRIN SQ SCH (08:41)
[2020-05-21] MEDS: busPIRone 5 MG TABLET PO SCH ×2 (08:41→16:45)
[2020-05-21] MEDS: FUROSEMIDE 20 MG TABLET PO SCH (08:42)
[2020-05-21] MEDS: GUAIFENESIN/D-METHORPHAN HB 5 ML UDC PO PRN ×3 (08:42→21:34)
[2020-05-21] MEDS: CLOTRIMAZOLE 1% 15 GM TUBE TP SCH ×2 (09:41→16:46)
[2020-05-21] MEDS: CEFEPIME 2 GM in IV D5W 100 ML IV SCH ×2 (09:42→21:11)
[2020-05-21 12:00] VITALS: BP 120/67
[2020-05-21 16:00] VITALS: BP 122/57
--- NOTE | 2020-05-21 18:00 | NUR ---
RN CLOSING NOTE: PATIENT IN ROOM RESTING. NO SIGNS OF RESPIRATORY DISTRESS. SAFETY MEASURES IMPLEMENTED, BED IN LOWEST POSITION, LOCKED, SIDE RAILS U X2, CALL LIGHT WITHIN REACH. WILL ENDORSED FOR CONTINUITY CARE.
--- NOTE | 2020-05-21 19:10 | NUR ---
RN NOTE RECEIVED PATIENT IN BED RESTING WITH HOB ELEVATED, WATCHING TV. A&O X3. BREATHING IS EVEN AND NON LABORED. NO SOB NOTED AT THIS TIME. ON O2 3L VIA NC. ABLE TO MAKE NEEDS KNOWN. SWEDISH SPEAKING, ABLE TO UNDERSTAND AND SPEAK LITTLE BELARUSIAN. ON ISOLATION FOR COVID+. IV SITE ON RAC GAUGE 20, CLEAN DRY, AND PATENT. IN NO APPARENT DISTRESS NOTED AT THIS TIME. BED IS LOWERED AND LOCKED FOR SAFETY. CALL LIGHT IS WITHIN REACH. WILL CONTINUE TO MONITOR.
[2020-05-21 20:00] VITALS: BP 124/70
[2020-05-21] MEDS: ATORVASTATIN 10 MG TABLET PO SCH (21:12)
[2020-05-21] MEDS: VANCOMYCIN 1 GM in IV D5W 250 ML IV SCH (22:31)
[2020-05-21] MEDS: HYDROMORPHONE 1 MG/1 ML DISP.SYRIN IV PRN (22:39)
[2020-05-22] VITALS: BP 116/57
[2020-05-22] MEDS: BLOOD SUGAR DIAGNOSTIC 1 EACH STRIP IN SCH ×4 (00:10→18:28)
[2020-05-22] MEDS: INSULIN REGULAR, HUMAN 100 UNIT/ML 3 ML VIAL SQ PRN ×2 (00:11→18:30)
[2020-05-22 04:00] VITALS: BP 127/65
[2020-05-22] MEDS: GABAPENTIN 100 MG CAPSULE PO SCH ×3 (04:55→21:45)
[2020-05-22 06:51] LABS: CALCIUM, SERUM 9.2 mg/dL (8.5-10.1); CREATININE 0.8 mg/dL (0.6-1.3)
--- NOTE | 2020-05-22 06:55 | NUR ---
RN NOTE PATIENT IS STABLE AT THIS TIME. NO SIGNIFICANT CHANGED NOTED THROUGHOUT THE NIGHT. BREATHING IS EVEN AND NON LABORED, NO SOB NOTED. KEPT ON O2 3 LPM VIA NC. ALL DUE MEDS GIVEN AND TOLERATED WELL. PATIENT KEPT CLEAN, DRY, AND COMFORTABLE. REPOSITIONED Q2H. ALL NEEDS ATTENDED AND MET. WILL ENDORSE TO AM SHIFT RN FOR CONTINUATION OF CARE.
[2020-05-22 08:00] VITALS: BP 132/59
--- NOTE | 2020-05-22 08:15 | NUR ---
RN OPENING NOTE: RECEIVED PATIENT IN BED THIS MORNING. PATIENT IS ALERT AND ORIENTED X2-3, ALBANIAN SPEAKING BUT UNDERSTANDS BURUNDIAN. RUNNING ON O2 3/MIN VIA NC, NO SIGNS OF RESPIRATORY DISTRESS NOTED. ON TELE MONITOR READING SR IN THE 70S. NO SIGNS OF ACUTE DISTRESS NOTED. NPO STATUS. RAC #20, C/D/I, FLUSHES WELL, NO SIGNS OF COMPLICATIONS NOTED. SAFETY MEASURES IMPLEMENTED, BED IN LOWEST POSITION, LOCKED, SIDE RAILS UP, CALL LIGHT WITHIN REACH. WILL CONTINUE TO MONITOR PATIENT FOR CHANGES. Addendum: 05/22/20 at 1534 by ROBERTO LYMAN RN CORRECTION: PATIENT IS NOT NPO STATUS, PIERRE CAN
[2020-05-22] MEDS: PANTOPRAZOLE 40 MG VIAL IV SCH (08:58)
[2020-05-22] MEDS: MAGNESIUM OXIDE 400 MG TABLET PO SCH (08:59)
[2020-05-22] MEDS: DEXAMETHASONE SOD PHOSPHATE 10 MG/ML VIAL IV SCH (08:59)
[2020-05-22] MEDS: busPIRone 5 MG TABLET PO SCH ×2 (08:59→16:23)
[2020-05-22] MEDS: SENNOSIDES 8.6 MG TABLET PO SCH ×2 (08:59→16:23)
[2020-05-22] MEDS: CYANOCOBALAMIN 500 MCG TABLET PO SCH (08:59)
[2020-05-22] MEDS: METFORMIN XR 500 MG TAB.SR.24H PO SCH (08:59)
[2020-05-22] MEDS: CEFEPIME 2 GM in IV D5W 100 ML IV SCH ×2 (09:00→22:24)
[2020-05-22] MEDS: FUROSEMIDE 20 MG TABLET PO SCH (09:00)
[2020-05-22] MEDS: HYDROMORPHONE 1 MG/1 ML DISP.SYRIN IV PRN ×2 (09:00→16:46)
[2020-05-22] MEDS: METHIMAZOLE (5MG) 5 MG TABLET PO SCH (09:07)
[2020-05-22] MEDS: ENOXAPARIN SODIUM 40 MG/0.4 ML DISP.SYRIN SQ SCH (09:09)
[2020-05-22] MEDS: CLOTRIMAZOLE 1% 15 GM TUBE TP SCH ×2 (09:10→17:25)
[2020-05-22 12:00] VITALS: BP 136/83
--- NOTE | 2020-05-22 13:29 | NUR ---
1200 INSULIN HELD D/T PATIENT REFUSING LUNCH
--- NOTE | 2020-05-22 13:58 | NUR ---
dr. ny gave new orders and hold discharge, per dr. ny he will notify dr. silva.bilingual patient support caseworker roshan made aware of hold discharge.primary rn aware.
[2020-05-22] MEDS ORDERED: TOCILIZUMAB 400 MG in IV NS 0.9% 80 ML IV ONE (14:00)
--- NOTE | 2020-05-22 14:24 | NUR ---
DR. HURD FACE TIME PATIENT AND AGREED WITH HOLD DISCHARGE AND NEW TREATMENT FOR COVID.
[2020-05-22 14:31] LABS: ALBUMIN 2.4 g/dL (3.4-5.0); BILIRUBIN,TOTAL 0.4 mg/dL (0.2-1.0); TOTAL PROTEIN, SERUM 7.7 g/dL (6.4-8.2)
[2020-05-22 16:00] VITALS: BP 147/70
--- NOTE | 2020-05-22 18:41 | NUR ---
PATIENT WILL BE TRANSITIONED INTO HOSPICE CARE. AWAITING ADMISSION, WILL INFORM PHARMACY ONCE PATIENT HAS NEW SF NUMBER.
--- NOTE | 2020-05-22 19:05 | NUR ---
RN CLOSING NOTE: PATIENT REMAINS IN BED. NO SIGNS OF ACUTE DISTRESS NOTED. SR IN THE 70S ON THE MONITOR. SAFETY MEASURES IMPLEMENTED, BED IN LOWEST POSITION, LOCKED, SIDE RAILS UP X2, CALL LIGHT WITHIN REACH. ENDORSED TO DEIRDRE NORTON FOR CONTINUITY OF CARE.
--- NOTE | 2020-05-22 19:10 | NUR ---
RN NOTE RECEIVED PATIENT IN BED RESTING WITH HOB ELEVATED, WATCHING TV. A&O X3. BREATHING IS EVEN AND NON LABORED. NO SOB NOTED AT THIS TIME. ON O2 3L VIA NC. ABLE TO MAKE NEEDS KNOWN. KINYARWANDA SPEAKING, ABLE TO UNDERSTAND AND SPEAK LITTLE TURKMEN. ON ISOLATION FOR COVID+. IV SITE ON RAC GAUGE 20,MIDLINE ON JUAN IFLUSHED WELL CLEAN DRY, AND PATENT. IN NO APPARENT DISTRESS NOTED AT THIS TIME. BED IS LOWERED AND LOCKED FOR SAFETY. CALL LIGHT IS WITHIN REACH. WILL CONTINUE TO MONITOR.
[2020-05-22 20:00] VITALS: BP 132/65
[2020-05-22] MEDS ORDERED: INVESTIGATIONAL MED MISC 1 EA in IV NS 0.9% 250 ML IV ONE (20:00)
--- NOTE | 2020-05-22 20:00 | NUR ---
RN NOTES WHEN I CHECKING VITAL SIGNS I NOTED THAT PT SPO2 IS ON 85-88% INCREASE THE O2 25L BUT IT GO DOWN TO 80%, PUT PT ON NON REBREATHER MASK SPO2 WENT UP TO 90% BUT PT KEEP REMOVING IT AND SHE SAYS SHE DONT LIKE HIGH LOW OF OXYGEN TO HE NOSE, INSTRUCTED PT SEVERAL TIMES AND SAYS THAT SHE IT, PT MADE AWARE AND COOPERATE FOR CERTAIN TIME SPO2 STAY ON 89-91% ON 15L O2 VIA NON REBREATHER MASK WILL CONT TO MONITOR
[2020-05-22] MEDS: GUAIFENESIN/D-METHORPHAN HB 5 ML UDC PO PRN (20:04)
--- NOTE | 2020-05-22 20:04 | NUR ---
RN NOTES PT IS ALERT ORIENTED X 2, STARTED THE INVESTIGATIONAL MED MISC @ 250ML/HR INSTRUCTED INITIAL VITAL SIGNS IS TEMP 97.6 BP 132/74 HR 82 SPO2 90% PT IS ON NON REBREATHER MASK 10L WILL CONT TO MONITOR
--- NOTE | 2020-05-22 20:19 | NUR ---
RN NOTES PT LATEST BP 132/68 HR 86 RR 20 TEMP 97.8 SPO2 90% PT ON NON REBREATHER PT IS AWAKE A/O 2 VERBAL WILL CONT TO MONITOR
--- NOTE | 2020-05-22 21:15 | NUR ---
DEIRDRE NOTES GIVE REPORT TO MS CHET GILMORE FOR SIDDHARTHA Addendum: 05/22/20 at 2227 by CIERRA ORTEZ RN KATHIE ROSENBERG
[2020-05-22] MEDS: ATORVASTATIN 10 MG TABLET PO SCH (21:46)
--- NOTE | 2020-05-22 22:12 | NUR ---
CHARGE ENTRY NOTES INVESTIGATIONAL DRUG FINISHED, INFUSED 50 ML OF NS INSTRUCTED. POST INFUSION VITALS BP 152/ 79 HE 80 O2 SAT 91% ON 15 L NON REBREATHER MASK.
[2020-05-22] MEDS: VANCOMYCIN 1 GM in IV D5W 250 ML IV SCH (23:17)
[2020-05-23] VITALS (52 sets, daily range): BP systolic 85–175; BP diastolic 39–104
[2020-05-23] MEDS: BLOOD SUGAR DIAGNOSTIC 1 EACH STRIP IN SCH ×4 (00:34→17:48)
[2020-05-23] MEDS: INSULIN REGULAR, HUMAN 100 UNIT/ML 3 ML VIAL SQ PRN ×2 (00:35→17:48)
--- NOTE | 2020-05-23 01:29 | NUR ---
PACKING TRACTOR MACHINE OPERATOR NOTES PATIENT NOT TOLERATING NONREBREATHER MASK 15 L WELL, BEING UNCOOPERATIVE SATING WITHING 88-90%. CALLED DR HURD OFFICE, WITH ANESTHESIA ASSISTANT MIXER HELPER URBAN JONES. ORDERED ABG AND TO FOLLOW UP WITH ANESTHESIA ASSISTANT PATROL POLICE LIEUTENANT. WILL CONTINUE TO MONITOR.
[2020-05-23 01:43] LABS: ABG OXYGEN SATURATION 82.5 % (92.0-98.5); ABG PCO2 39.6 mmHg (35.0-45.0); ABG PH 7.396 (7.350-7.450); ABG PO2 48.2 mmHg (75.0-100.0); AaDO2 625.2 mmHg; COHb 0.3 % (0.5-1.5); MetHb 0.3 % (0.0-1.5); SITE, ABG Left Radial; VENT MODE, BG NRB 100%
--- NOTE | 2020-05-23 02:02 | NUR ---
FATBACK TRIMMER NOTES CALLED MANAGER SMALL BUSINESS PARACHUTE PANEL JOINER ABOUT PATIENT, MD GERARD ORDERED FOR HIGH FLOW. RT CONTACTED. WILL CONTINUE TO MONITOR.
[2020-05-23] MEDS: GABAPENTIN 100 MG CAPSULE PO SCH ×3 (05:00→21:22)
[2020-05-23 07:16] LABS: CALCIUM, SERUM 9.4 mg/dL (8.5-10.1); CREATININE 0.7 mg/dL (0.6-1.3); POTASSIUM 3.4 mmol/L (3.5-5.1)
--- NOTE | 2020-05-23 07:20 | NUR ---
STOCK AND STATION AGENT - CONTACTED DR HILARIO-- > ORDERS TRANSFER TO ICU
--- NOTE | 2020-05-23 07:45 | NUR ---
MULT AU MATIC OPERATOR- TRANSFER TO ICU
--- NOTE | 2020-05-23 07:50 | NUR ---
PATIENT TRAMNSFERRED FROM [facility] DUE HYPOXEMIC RESPIRATORY FAILURE. PATIENT ON HIGH FLOW O2 AT THIS TIME. AWAKE BUT CONFUSED. AWAITING FOR ANESTHESIA TO INTUBATE INFORMED BY NURSING ADMINISTRATOR PESTICIDE.
--- NOTE | 2020-05-23 08:10 | NUR ---
DR. RODRIGUEZ-ANESTHESIOLOGIST AT BEDSIDE TO INTUBATE PATIENT. MEDS GIVEN PER . INTUBATED WITHOUT COMPLICATIONS.
--- NOTE | 2020-05-23 08:10 | NUR ---
RT pt transferred to icu with no complications. transferred on nrb 15 l. connected to hi flow, 60 l 100%, upon arrival.
--- NOTE | 2020-05-23 08:20 | NUR ---
POST INTUBATION CXR DONE.
--- NOTE | 2020-05-23 08:45 | NUR ---
DR. VANNESSA REYES UPDATED WITH PATIENT CURRENT CONDITION. FACETIME DONE BY MD. BACA TO INSERT NGT FOR MEDS AND MCDONALD CATHETER PER . NPO EXCEPT MEDS.
[2020-05-23] MEDS ORDERED: TOCILIZUMAB 400 MG in IV NS 0.9% 80 ML IV ONE ×2 (09:00→10:00)
[2020-05-23] MEDS ORDERED: ACETAMINOPHEN 650 MG SUPP.RECT RC ONE (09:30)
[2020-05-23] MEDS ORDERED: ACETAMINOPHEN 650 MG/SUPP.RECT RC ONE (09:30)
[2020-05-23] MEDS ORDERED: diphenhydrAMINE HCL 50 MG/ML VIAL IV ONE (09:30)
[2020-05-23] MEDS: DEXAMETHASONE SOD PHOSPHATE 10 MG/ML VIAL IV SCH (09:43)
[2020-05-23] MEDS: ENOXAPARIN SODIUM 40 MG/0.4 ML DISP.SYRIN SQ SCH (09:43)
[2020-05-23] MEDS: FUROSEMIDE 20 MG TABLET PO SCH (09:44)
[2020-05-23] MEDS: SENNOSIDES 8.6 MG TABLET PO SCH ×2 (09:44→16:33)
[2020-05-23] MEDS: MAGNESIUM OXIDE 400 MG TABLET PO SCH (09:45)
[2020-05-23] MEDS: CYANOCOBALAMIN 500 MCG TABLET PO SCH (09:45)
[2020-05-23] MEDS: METFORMIN XR 500 MG TAB.SR.24H PO SCH (09:45)
[2020-05-23] MEDS: busPIRone 5 MG TABLET PO SCH ×2 (09:46→16:34)
[2020-05-23] MEDS: PANTOPRAZOLE 40 MG VIAL IV SCH (09:48)
[2020-05-23] MEDS: CLOTRIMAZOLE 1% 15 GM TUBE TP SCH ×2 (09:48→16:34)
[2020-05-23] MEDS: METHIMAZOLE (5MG) 5 MG TABLET PO SCH (09:56)
[2020-05-23] MEDS ORDERED: POTASSIUM CHLORIDE 20 MEQ TAB.PRT.SR PO SCH (10:00)
--- NOTE | 2020-05-23 10:00 | NUR ---
ABG POST INTUBATION SEEN BY DR. HILARIO- NO VENT CHANGES PER MD.
[2020-05-23] MEDS: CEFEPIME 2 GM in IV D5W 100 ML IV SCH ×2 (10:01→21:22)
--- NOTE | 2020-05-23 11:00 | NUR ---
RN NOTES RECEIVED PT ON BED, INTUBATED, ON VENT, SEDATED ON DIPRIVAN, TOLERATING VENT SETTING WELL, O2 SAT WNL, T=100.7 RECTALLY, ON TELE SR HR IN 70'S , MCDONALD DRINING TO GRAVITY, OG TUBE CLAMPED, PT IS NPO EXCEPT MEDS, L UPPER ARM MIDLINE SITE CLEAN,DRY AND INTACT, SR UP x3, CALL LIGHT WITHIN EASY REACH, BED LOCKED AND IN LOWEST POSITION, CONTINUE TO MONITOR .
[2020-05-23] MEDS: PROPOFOL 100 ML IV PRN ×2 (11:45→12:57)
[2020-05-23] MEDS ORDERED: LIDOCAINE 100MG/5ML DISP SYR IV ONE (11:45)
[2020-05-23] MEDS ORDERED: ROCURONIUM BROMIDE 50 MG/5 ML IV ONE (11:45)
[2020-05-23] MEDS ORDERED: PROPOFOL 200 MG/20 ML VIAL IV ONE (11:45)
[2020-05-23 11:48] LABS: ALBUMIN 2.2 g/dL (3.4-5.0); BILIRUBIN,DIRECT 0.1 mg/dL (0.0-0.2); BILIRUBIN,TOTAL 0.3 mg/dL (0.2-1.0); TOTAL PROTEIN, SERUM 7.5 g/dL (6.4-8.2)
--- NOTE | 2020-05-23 13:52 | NUR ---
RN NOTES DR HURD NOTIFIED REGARDING K=3.4 , NEW ORDER RECEIVED
[2020-05-23] MEDS ORDERED: POTASSIUM CHLORIDE 20 MEQ POWDER PACKET NG ONE (14:00)
--- NOTE | 2020-05-23 18:10 | NUR ---
RN NOTES PT REMAINS INTUBATED, AND SEDATED, ON 20 MEQ/KG/MIN DIPRIVAN, VSS STABLE, O2 SAT WNL, OGT CLAMPED, L UPPER ARM MIDLINE SITE CLEAN, DRY AND INTACT, NO SIGNIFICANT CHANGES NOTED ON THIS, WILL ENDORSE TO DIRECTOR HOME NURSE FOR CONTINUITY OF CARE.
[2020-05-23 18:22] LABS: BASOPHILS % (AUTO) 0.2 % (0.0-2.0); HEMATOCRIT 38 % (33-45); HEMOGLOBIN 11.9 g/dL (11.5-14.8); LYMPHOCYTES # (AUTO) 1.5 /CMM (0.8-4.8); LYMPHOCYTES % (AUTO) 10.7 % (20.0-44.0); MEAN CORPUSCULAR HGB CONC 31 g/dl (31.0-36.0); MEAN CORPUSCULAR VOLUME 87 fL (82-100); MONOCYTES # (AUTO) 0.9 /CMM (0.1-1.30); MONOCYTES % (AUTO) 6.7 % (2.0-12.0); NEUTROPHILS # (AUTO) 11.6 /CMM (1.8-8.9); NEUTROPHILS % (AUTO) 82.4 % (43.0-81.0); PLATELET COUNT (AUTO) 329 /CMM (150-450); RED BLOOD CELL COUNT(AUTO) 4.34 MIL/uL (4.0-5.2); WHITE BLOOD COUNT (AUTO) 14.1 K/uL (4.3-11.0)
[2020-05-23] MEDS: INVESTIGATIONAL MED MISC 1 EA in IV NS 0.9% 250 ML IV SCH (19:05)
[2020-05-23] MEDS: ATORVASTATIN 10 MG TABLET PO SCH (21:22)
[2020-05-23] MEDS ORDERED: VANCOMYCIN 1 GM VIAL ONE (22:45)
[2020-05-23] MEDS: VANCOMYCIN 1 GM in IV D5W 250 ML IV SCH (22:45)
[2020-05-24] VITALS (58 sets, daily range): BP systolic 90–152; BP diastolic 37–79
[2020-05-24] MEDS: BLOOD SUGAR DIAGNOSTIC 1 EACH STRIP IN SCH ×5 (00:14→23:47)
[2020-05-24] MEDS: INSULIN REGULAR, HUMAN 100 UNIT/ML 3 ML VIAL SQ PRN ×3 (00:16→17:32)
[2020-05-24] MEDS: PROPOFOL 100 ML IV PRN ×3 (01:23→17:41)
[2020-05-24] MEDS ORDERED: GABAPENTIN 100 MG CAPSULE ONE (05:22)
[2020-05-24] MEDS: GABAPENTIN 100 MG CAPSULE PO SCH ×3 (05:27→21:12)
[2020-05-24 07:01] LABS: CALCIUM, SERUM 8.7 mg/dL (8.5-10.1); CREATININE 0.8 mg/dL (0.6-1.3); POTASSIUM 3.8 mmol/L (3.5-5.1)
[2020-05-24 07:07] LABS: ALBUMIN 2.1 g/dL (3.4-5.0); BILIRUBIN,DIRECT 0.1 mg/dL (0.0-0.2); BILIRUBIN,TOTAL 0.3 mg/dL (0.2-1.0); TOTAL PROTEIN, SERUM 6.6 g/dL (6.4-8.2)
--- NOTE | 2020-05-24 07:45 | NUR ---
ICU/RN PT IS INTUBATED ON THE VENT AC MODE,FIO2-100%,PEEP-10.V/S STABLE,AFEBRILE.HR-45-50 BPM. NO PAIN REPORTED AT THIS TIME.PT IS SEDATED ON DIPRIVAN.OG TUBE CLAMPED.F/C DRAINING WITH YELLOW URINE.REDNESS ON CLAUDIO AREA AND LOWER BACK NOTED.SUCTION PROVIDED.REPOSITION FOR COMFORT.
[2020-05-24] MEDS: CEFEPIME 2 GM in IV D5W 100 ML IV SCH (08:08)
[2020-05-24] MEDS: busPIRone 5 MG TABLET PO SCH ×2 (08:08→16:19)
[2020-05-24] MEDS: METFORMIN XR 500 MG TAB.SR.24H PO SCH (08:08)
[2020-05-24] MEDS: SENNOSIDES 8.6 MG TABLET PO SCH ×2 (08:08→16:18)
[2020-05-24] MEDS: PANTOPRAZOLE 40 MG VIAL IV SCH (08:08)
[2020-05-24] MEDS: MAGNESIUM OXIDE 400 MG TABLET PO SCH (08:09)
[2020-05-24] MEDS: CYANOCOBALAMIN 500 MCG TABLET PO SCH (08:09)
[2020-05-24] MEDS: FUROSEMIDE 20 MG TABLET PO SCH (08:09)
[2020-05-24] MEDS: METHIMAZOLE (5MG) 5 MG TABLET PO SCH (08:09)
[2020-05-24] MEDS: DEXAMETHASONE SOD PHOSPHATE 10 MG/ML VIAL IV SCH (08:09)
[2020-05-24] MEDS: ENOXAPARIN SODIUM 40 MG/0.4 ML DISP.SYRIN SQ SCH (08:10)
[2020-05-24] MEDS: CLOTRIMAZOLE 1% 15 GM TUBE TP SCH ×2 (08:23→16:19)
[2020-05-24 08:26] LABS: ABG BASE EXCESS -0.5 mmol/L; ABG OXYGEN SATURATION 89.7 % (92.0-98.5); ABG PCO2 33.8 mmHg (35.0-45.0); ABG PO2 55.8 mmHg (75.0-100.0); AaDO2 623.4 mmHg; COHb 0.2 % (0.5-1.5); O2Hb 89.5 % (94.0-97.0); SITE, ABG Right Radial; VENT MODE, BG AC 22 500 +10 100%
--- NOTE | 2020-05-24 09:14 | NUR ---
RT NOTE VENT CHANGES MADE PER DR HILARIO POST ABG. PEEP WAS INCREASED TO 12 AND FIO2 WAS DECREASED TO 85%. PT TOLERATED CHANGES WELL. WILL CONTINEUE TO MONITOR PT. Addendum: 05/24/20 at 0915 by CIERRA CORONA RT Amended: Links added.
[2020-05-24 09:19] LABS: BASOPHILS # (AUTO) 0.1 /CMM (0.0-0.2); BASOPHILS % (AUTO) 1.1 % (0.0-2.0); EOSINOPHILS % (AUTO) 0.1 % (0.0-6.0); HEMATOCRIT 32 % (33-45); HEMOGLOBIN 10.1 g/dL (11.5-14.8); LYMPHOCYTES # (AUTO) 1.5 /CMM (0.8-4.8); LYMPHOCYTES % (AUTO) 14.2 % (20.0-44.0); MEAN CORPUSCULAR HGB CONC 32 g/dl (31.0-36.0); MEAN CORPUSCULAR VOLUME 86 fL (82-100); MONOCYTES # (AUTO) 0.7 /CMM (0.1-1.30); MONOCYTES % (AUTO) 6.4 % (2.0-12.0); NEUTROPHILS % (AUTO) 78.2 % (43.0-81.0); PLATELET COUNT (AUTO) 306 /CMM (150-450); RED BLOOD CELL COUNT(AUTO) 3.73 MIL/uL (4.0-5.2); WHITE BLOOD COUNT (AUTO) 10.3 K/uL (4.3-11.0)
--- NOTE | 2020-05-24 09:45 | NUR ---
ICU/RN DUE MEDS ARE GIVEN ORDERED.SEDATION VACATION PROVIDED.ABG DONE .DR HILARIO SEEN THE PT NEW ORDERS RECEIVED.
[2020-05-24] MEDS: IV NS 0.9% 250 ML IV PRN (10:00)
[2020-05-24 10:17] LABS: ABG BASE EXCESS 0.7 mmol/L; ABG OXYGEN SATURATION 97.7 % (92.0-98.5); ABG PCO2 30.7 mmHg (35.0-45.0); ABG PH 7.499 (7.350-7.450); ABG PO2 100.3 mmHg (75.0-100.0); COHb 0.3 % (0.5-1.5); MetHb 0.3 % (0.0-1.5); O2Hb 97.1 % (94.0-97.0); SITE, ABG Right Radial; VENT MODE, BG AC 22 500 +10 100%
[2020-05-24] MEDS ORDERED: ENOXAPARIN SODIUM 40 MG/0.4 ML DISP.SYRIN SQ ONE (14:30)
[2020-05-24] MEDS: GLUCERNA 1.2 1,000 ML BOTTLE GT PRN (15:35)
[2020-05-24 15:54] LABS: ALBUMIN 2.2 g/dL (3.4-5.0); BILIRUBIN,DIRECT 0.1 mg/dL (0.0-0.2); BILIRUBIN,TOTAL 0.3 mg/dL (0.2-1.0); TOTAL PROTEIN, SERUM 7.3 g/dL (6.4-8.2)
[2020-05-24 16:02] LABS: BASOPHILS % (AUTO) 0.2 % (0.0-2.0); HEMATOCRIT 35 % (33-45); HEMOGLOBIN 11.3 g/dL (11.5-14.8); LYMPHOCYTES # (AUTO) 0.8 /CMM (0.8-4.8); MEAN CORPUSCULAR HGB CONC 32 g/dl (31.0-36.0); MEAN CORPUSCULAR VOLUME 85 fL (82-100); MONOCYTES # (AUTO) 0.2 /CMM (0.1-1.30); MONOCYTES % (AUTO) 2.9 % (2.0-12.0); NEUTROPHILS # (AUTO) 6.6 /CMM (1.8-8.9); NEUTROPHILS % (AUTO) 85.9 % (43.0-81.0); PLATELET COUNT (AUTO) 382 /CMM (150-450); RED BLOOD CELL COUNT(AUTO) 4.14 MIL/uL (4.0-5.2); WHITE BLOOD COUNT (AUTO) 7.7 K/uL (4.3-11.0)
--- NOTE | 2020-05-24 16:42 | NUR ---
ICU/RN PM CARE PROVIDED.WOUND DRESSING DONE ORDERED.OG TUBE FEEDING STARTED AT 20 ML/HR ORDERED BY MD.GOAL IS 40 ML/HR. DUE MEDS ARE GIVEN ORDERED.
[2020-05-24] MEDS: INVESTIGATIONAL MED MISC 1 EA in IV NS 0.9% 250 ML IV SCH (17:33)
[2020-05-24] MEDS: ATORVASTATIN 10 MG TABLET PO SCH (21:13)
[2020-05-24] MEDS: ENOXAPARIN SODIUM 80 MG/0.8 ML DISP.SYRIN SQ SCH (21:14)
--- NOTE | 2020-05-24 22:17 | NUR ---
RT NOTE Pt Rec'd orally intubated via ETT #7.5 secured at 20CM at the lipline. Pt on [facility] vent on AC mode settings as charted. Pt shows no signs of resp distress or sob. sx'd for small amt of bloody secretions. Alarms are set and audible. Vent plugged into red outlet. Ambu bag bedside. Will continue to monitor. Addendum: 05/24/20 at 2218 by FREIDA DUBOSE RT Amended: Links added.
[2020-05-24] MEDS: VANCOMYCIN 1 GM in IV D5W 250 ML IV SCH (23:47)
[2020-05-25] VITALS (65 sets, daily range): BP systolic 90–144; BP diastolic 43–74
[2020-05-25] MEDS: PROPOFOL 100 ML IV PRN ×3 (04:06→17:53)
[2020-05-25 05:17] LABS: CALCIUM, SERUM 8.8 mg/dL (8.5-10.1); CREATININE 0.8 mg/dL (0.6-1.3); POTASSIUM 3.4 mmol/L (3.5-5.1)
[2020-05-25] MEDS: BLOOD SUGAR DIAGNOSTIC 1 EACH STRIP IN SCH ×3 (05:33→17:53)
[2020-05-25] MEDS: GABAPENTIN 100 MG CAPSULE PO SCH ×3 (05:33→21:13)
--- NOTE | 2020-05-25 07:50 | NUR ---
ICU/RN PT IS INTUBATE ON THE VENT AC MODE,FIO2-70%,PEEP-12.V/S STABLE,AFEBRILE .NO PAIN REPORTED AT THIS TIME.SEDATED ON DIPRIVAN.BILATERAL SOFT WRIST RESTRAINS ON.OG TUBE IN PLACE INFUSING WITH JEVITY AT 40 ML/HR,NO RESIDUAL NOTED.F/C DRAINING WITH YELLOW URINE.SUCTION PROVIDED.REPOSITION FOR COMFORT.
[2020-05-25] MEDS: METHIMAZOLE (5MG) 5 MG TABLET PO SCH (08:36)
[2020-05-25] MEDS: FUROSEMIDE 20 MG TABLET PO SCH (08:36)
[2020-05-25] MEDS: PANTOPRAZOLE 40 MG VIAL IV SCH (08:36)
[2020-05-25] MEDS: busPIRone 5 MG TABLET PO SCH ×2 (08:36→16:12)
[2020-05-25] MEDS: METFORMIN XR 500 MG TAB.SR.24H PO SCH (08:36)
[2020-05-25] MEDS: MAGNESIUM OXIDE 400 MG TABLET PO SCH (08:36)
[2020-05-25] MEDS: CYANOCOBALAMIN 500 MCG TABLET PO SCH (08:37)
[2020-05-25] MEDS: DEXAMETHASONE SOD PHOSPHATE 10 MG/ML VIAL IV SCH (08:37)
[2020-05-25] MEDS: ENOXAPARIN SODIUM 80 MG/0.8 ML DISP.SYRIN SQ SCH ×2 (08:40→21:12)
[2020-05-25] MEDS: SENNOSIDES 8.6 MG TABLET PO SCH ×2 (08:42→16:12)
[2020-05-25] MEDS: CLOTRIMAZOLE 1% 15 GM TUBE TP SCH ×2 (08:42→16:12)
--- NOTE | 2020-05-25 09:35 | NUR ---
ICU/RN DUE MEDS ARE GIVEN ORDERED.LABS REVIEW .K-3.4.MD NOTIFIED,NEW ORDERS RECEIVED.
[2020-05-25] MEDS ORDERED: POTASSIUM CHLORIDE 20 MEQ POWDER PACKET GT SCH (10:00)
[2020-05-25 10:09] LABS: ALBUMIN 1.9 g/dL (3.4-5.0); BILIRUBIN,TOTAL 0.2 mg/dL (0.2-1.0); TOTAL PROTEIN, SERUM 6.3 g/dL (6.4-8.2)
[2020-05-25 11:49] LABS: ABG BASE EXCESS -4.9 mmol/L; ABG OXYGEN SATURATION 97.5 % (92.0-98.5); ABG PCO2 35.7 mmHg (35.0-45.0); ABG PH 7.363 (7.350-7.450); ABG PO2 103.6 mmHg (75.0-100.0); AaDO2 357.1 mmHg; COHb 0.3 % (0.5-1.5); MetHb 0.3 % (0.0-1.5); O2Hb 96.9 % (94.0-97.0); SITE, ABG Right Radial; VENT MODE, BG AC 22 450 70% +12
[2020-05-25] MEDS: GLUCERNA 1.2 1,000 ML BOTTLE GT PRN (15:14)
[2020-05-25 16:16] LABS: EOSINOPHILS % (AUTO) 0.1 % (0.0-6.0); HEMATOCRIT 34 % (33-45); LYMPHOCYTES # (AUTO) 0.6 /CMM (0.8-4.8); MEAN CORPUSCULAR HGB CONC 32 g/dl (31.0-36.0)
[2020-05-25 16:25] LABS: LYMPHOCYTES % (AUTO) 6.5 % (20.0-44.0); MEAN CORPUSCULAR VOLUME 85 fL (82-100); MONOCYTES # (AUTO) 9.2 /CMM (0.1-1.30); MONOCYTES % (AUTO) 92.8 % (2.0-12.0); NEUTROPHILS # (AUTO) 0.1 /CMM (1.8-8.9); NEUTROPHILS % (AUTO) 0.6 % (43.0-81.0); PLATELET COUNT (AUTO) 430 /CMM (150-450); RED BLOOD CELL COUNT(AUTO) 4.01 MIL/uL (4.0-5.2); WHITE BLOOD COUNT (AUTO) 9.9 K/uL (4.3-11.0)
[2020-05-25 17:04] LABS: LYMPHOCYTES % (MANUAL) 9 % (16-48); MONOCYTES % (MANUAL) 1 % (0-11.0); NEUTROPHILS % (MANUAL) 90 (42-76)
--- NOTE | 2020-05-25 17:17 | NUR ---
RT NOTE Pt received on vent via ett on ordered settings. Vent is plugged into red outlet w alarms set and audible. Pt is stable. No respiratory distress noted t/o shift. Addendum: 05/25/20 at 1826 by ROBBIE PARKER RT Amended: Links added.
[2020-05-25] MEDS: INVESTIGATIONAL MED MISC 1 EA in IV NS 0.9% 250 ML IV SCH (17:53)
[2020-05-25] MEDS: INSULIN REGULAR, HUMAN 100 UNIT/ML 3 ML VIAL SQ PRN ×2 (18:05)
--- NOTE | 2020-05-25 19:29 | NUR ---
MANUFACTURING ENGINEER SUPERVISOR. INITIAL ASSESSMENT. RECEIVED THE PT REST ON THE BED. ORALLY INTUBATED. SEDATED WITH DIPRIVAN, 25MCG/KG/MIN,ETT 7.5,AC 22,TV 450,FIO2 60%,PEEP 12. SAT 98%. NO ACUTE DISTRESS NOTED. ELECTION JUDGE SHOWING S RODRIGO. ABNER SOFT WRIST RESTRAINT CHECKED AND RELEASED, NO INJURY OR REDNESS NOTED,. FC PATENT, IV LT UPPER ARM MID LINE TKO RUNNING, HOB ELEVATED. AFEBRILE. WILL CONTINUE TO MONITOR VITALS.
[2020-05-25] MEDS: ATORVASTATIN 10 MG TABLET PO SCH (21:13)
[2020-05-25] MEDS: VANCOMYCIN 1 GM in IV D5W 250 ML IV SCH (22:30)
[2020-05-26] VITALS (41 sets, daily range): BP systolic 84–158; BP diastolic 45–101
[2020-05-26] MEDS: INSULIN REGULAR, HUMAN 100 UNIT/ML 3 ML VIAL SQ PRN ×2 (00:13→18:42)
[2020-05-26] MEDS: BLOOD SUGAR DIAGNOSTIC 1 EACH STRIP IN SCH ×4 (00:56→18:41)
[2020-05-26] MEDS: PROPOFOL 100 ML IV PRN ×3 (01:04→18:05)
--- NOTE | 2020-05-26 04:47 | NUR ---
horticultural farm manager. am care, oral care, bed bath given/ linebn changed. remaining same vent setting tolerated well. sat 98%. no acute distress noted. patient monitor showing s jessica cardia. fc patent. urine draining, afebrile. will continue to monitor vitals
[2020-05-26 05:03] LABS: CALCIUM, SERUM 8.9 mg/dL (8.5-10.1); CREATININE 0.8 mg/dL (0.6-1.3); POTASSIUM 3.9 mmol/L (3.5-5.1)
[2020-05-26] MEDS: GABAPENTIN 100 MG CAPSULE PO SCH ×3 (05:13→20:15)
[2020-05-26] MEDS: PANTOPRAZOLE 40 MG VIAL IV SCH (07:44)
--- NOTE | 2020-05-26 07:48 | NUR ---
RN opening note: Received patient in bed and sedated. Isolation precaution observed for COVID-[address] On Mechanical Ventilation and tolerating settings well. Bilateral soft wrist restraints on. Tele monitor showing sinus bradycardia in @ 58bpm noted. OGtube in place, patent and intact with feeding of Glucerna @ 40mls/hr being tolerated well. IV site clean, dry, patent and intact. IV infusion Diprivan @ 25mcg/kg/min being tolerated well. No pain noted on patient. Paul catheter in place and draining mayco-yellow urine. Patient DNR status noted. call light in reach. Bed locked, low and at semi-medrano's position. Side rails up x3. Safety ensured and observed. Will continue to monitor.
[2020-05-26] MEDS: busPIRone 5 MG TABLET PO SCH ×2 (08:58→17:08)
[2020-05-26] MEDS: DEXAMETHASONE SOD PHOSPHATE 10 MG/ML VIAL IV SCH (08:58)
[2020-05-26] MEDS: SENNOSIDES 8.6 MG TABLET PO SCH ×2 (08:58→17:07)
[2020-05-26] MEDS: FUROSEMIDE 20 MG TABLET PO SCH (08:59)
[2020-05-26] MEDS: CYANOCOBALAMIN 500 MCG TABLET PO SCH (08:59)
[2020-05-26] MEDS: METHIMAZOLE (5MG) 5 MG TABLET PO SCH (08:59)
[2020-05-26] MEDS: MAGNESIUM OXIDE 400 MG TABLET PO SCH (08:59)
[2020-05-26] MEDS: METFORMIN XR 500 MG TAB.SR.24H PO SCH (08:59)
[2020-05-26] MEDS: ENOXAPARIN SODIUM 80 MG/0.8 ML DISP.SYRIN SQ SCH ×2 (09:00→20:15)
[2020-05-26] MEDS: CLOTRIMAZOLE 1% 15 GM TUBE TP SCH ×2 (09:27→17:08)
[2020-05-26 10:12] LABS: BILIRUBIN,TOTAL 0.2 mg/dL (0.2-1.0); TOTAL PROTEIN, SERUM 6.3 g/dL (6.4-8.2)
--- NOTE | 2020-05-26 12:42 | NUR ---
RT NOTE Pt Rec'd orally intubated via ETT #7.5 secured at 20CM at the lipline. Pt on [facility] vent on AC mode settings as charted. Pt shows no signs of resp distress or sob. sx'd for mod amt of pale yellow secretions. Alarms are set and audible. Vent plugged into red outlet. Ambu bag bedside. Will continue to monitor. Addendum: 05/26/20 at 1243 by FREIDA DUBOSE RT Amended: Links added.
[2020-05-26 12:52] LABS: ABG BASE EXCESS -0.9 mmol/L; ABG OXYGEN SATURATION 95.9 % (92.0-98.5); ABG PCO2 36.4 mmHg (35.0-45.0); ABG PH 7.422 (7.350-7.450); ABG PO2 77.8 mmHg (75.0-100.0); COHb 0.3 % (0.5-1.5); MetHb 0.1 % (0.0-1.5); O2Hb 95.5 % (94.0-97.0); PEEP,BG 12 cm H2O; SITE, ABG Right Radial; VENT MODE, BG AC 22 450 60% +12
[2020-05-26] MEDS: GLUCERNA 1.2 1,000 ML BOTTLE GT PRN (15:33)
[2020-05-26 15:38] LABS: BASOPHILS % (AUTO) 0.1 % (0.0-2.0); EOSINOPHILS % (AUTO) 0.3 % (0.0-6.0); HEMATOCRIT 35 % (33-45); HEMOGLOBIN 10.9 g/dL (11.5-14.8); LYMPHOCYTES # (AUTO) 0.8 /CMM (0.8-4.8); LYMPHOCYTES % (AUTO) 6.8 % (20.0-44.0); MEAN CORPUSCULAR HGB CONC 32 g/dl (31.0-36.0); MEAN CORPUSCULAR VOLUME 86 fL (82-100); MONOCYTES # (AUTO) 0.2 /CMM (0.1-1.30); MONOCYTES % (AUTO) 1.3 % (2.0-12.0); NEUTROPHILS # (AUTO) 10.4 /CMM (1.8-8.9); NEUTROPHILS % (AUTO) 91.5 % (43.0-81.0); PLATELET COUNT (AUTO) 533 /CMM (150-450); RED BLOOD CELL COUNT(AUTO) 4.03 MIL/uL (4.0-5.2); WHITE BLOOD COUNT (AUTO) 11.4 K/uL (4.3-11.0)
[2020-05-26] MEDS: INVESTIGATIONAL MED MISC 1 EA in IV NS 0.9% 250 ML IV SCH (18:20)
--- NOTE | 2020-05-26 19:29 | NUR ---
RN closing note: No acute changes noted on shift. Was seen by Dr. Childress and Dr. Uriostegui earlier on shift. Patient in remains in bed and sedated. Isolation precaution observed for COVID-[address] On Mechanical Ventilation and tolerating settings well. Bilateral soft wrist restraints on. Tele monitor showing sinus bradycardia in @ 50bpm noted. OGtube in place, patent and intact with feeding of Glucerna @ 40mls/hr being tolerated well. IV site clean, dry, patent and intact. IV infusion Diprivan @ 5mcg/kg/min being tolerated well with scheduled dose of Remdesevir running as well. No pain noted on patient. Paul catheter in place and draining mayco-yellow urine. Patient DNR status. Call light in reach. Bed locked, low and at semi-medrano's position. Side rails up x3. Due medications given. Treatment given as ordered. Endorsed to oncoming shift for SIDDHARTHA.
--- NOTE | 2020-05-26 19:40 | NUR ---
SERVICES REP OPENING NOTES, RECEIVED PATIENT IN BED, INTUBATED/SEDATED. TOLERATING VENT SETTING WELL. NO SOB OR ACUTE DISTRESS NOTED AT THIS TIME. SB ON BEDSIDE TELE MONITOR IN 50'S. OG-TUBE FEEDING, GLUCERNA @ 40ML/HR. TOLERATING WELL. IV ON L UPPER ARM MIDLINE. FLUSHING WELL, RUNNING DIPRIVAN @5MCG/KG/MIN. TOLERATING WELL, NO S/S OF INFILTRATION NOTED. ABNER SOFT WRIST RESTRAIN NOTED. NO SIGN OF PAIN. FC DRAINING YELLOW/CLEAR URIN TO THE GRAVITY. BED EVETTE/LOW POSITION. SR UP X3. HOB ELEVATED. WILL CONTINUE TO MONITOR THE PATIENT CLOSELY
[2020-05-26] MEDS: ATORVASTATIN 10 MG TABLET PO SCH (22:23)
[2020-05-26] MEDS: VANCOMYCIN 1 GM in IV D5W 250 ML IV SCH (22:54)
[2020-05-27] VITALS (35 sets, daily range): BP systolic 81–158; BP diastolic 46–89
[2020-05-27] MEDS: BLOOD SUGAR DIAGNOSTIC 1 EACH STRIP IN SCH ×4 (00:10→17:19)
[2020-05-27] MEDS: INSULIN REGULAR, HUMAN 100 UNIT/ML 3 ML VIAL SQ PRN ×3 (00:12→17:39)
[2020-05-27 04:45] LABS: CALCIUM, SERUM 9.3 mg/dL (8.5-10.1); CREATININE 0.8 mg/dL (0.6-1.3); POTASSIUM 4.5 mmol/L (3.5-5.1)
[2020-05-27] MEDS: GABAPENTIN 100 MG CAPSULE PO SCH ×3 (05:10→20:05)
--- NOTE | 2020-05-27 06:15 | NUR ---
ADVANCED THE OG-TUBE FEEDING 8CM PER DR AUGUST.
--- NOTE | 2020-05-27 07:15 | NUR ---
PHOSPHORIC ACID OPERATOR CLOSING NOTES, PATIENT IN BED, INTUBATED/SEDATED. TOLERATING VENT SETTING WELL. NO SOB OR ACUTE DISTRESS NOTED AT THIS TIME. SB ON BEDSIDE TELE MONITOR IN 50'S. OG-TUBE FEEDING, GLUCERNA @ 40ML/HR. TOLERATING WELL. IV ON L UPPER ARM MIDLINE. FLUSHING WELL, RUNNING DIPRIVAN @10MCG/KG/MIN. TOLERATING WELL, NO S/S OF INFILTRATION NOTED. ABNER SOFT WRIST RESTRAIN NOTED. NO SIGN OF PAIN. FC DRAINING YELLOW/CLEAR URIN TO THE GRAVITY. BED EVETTE/LOW POSITION. SR UP X3. HOB ELEVATED. ENDORSED THE PATIENT TO AM RN FOR SIDDHARTHA.
--- NOTE | 2020-05-27 08:00 | NUR ---
ICU/RN: ABG DONE, MD NOTIFIED OF RESULTS, VENT CHANGES DONE. WILL CONTINUE TO MONITOR.
--- NOTE | 2020-05-27 08:00 | NUR ---
ICU/RN: INITIAL NOTES,AM RECEIVED REPORT FROM NIGHT NURSE. PT INTUBATED AND SEDATED. ETT 7.5, 20CM AT THE LIP, ON VENT SETTINGS ORDERED BY MD. PT OPENS EYES, FOLLOWS COMMANDS. PT ON TELE, SINUS. OG TUBE IN PLACE, TUBE FEEDING INFUSING, TOLERATING WELL. MCDONALD CATH DRAINING YELLOW URINE. ALL NEEDS WILL BE ATTENDED TO. SAFETY MEASURES TAKEN, BED IN LOW POSITION, SIDE RAILS UP, CALL LIGHT WITHIN REACH. POSSIBLE WEANING TODAY.
[2020-05-27] MEDS: PROPOFOL 100 ML IV PRN ×2 (08:38→14:49)
[2020-05-27] MEDS: CYANOCOBALAMIN 500 MCG TABLET PO SCH (08:43)
[2020-05-27] MEDS: METFORMIN XR 500 MG TAB.SR.24H PO SCH (08:43)
[2020-05-27] MEDS: busPIRone 5 MG TABLET PO SCH ×2 (08:43→17:19)
[2020-05-27] MEDS: MAGNESIUM OXIDE 400 MG TABLET PO SCH (08:43)
[2020-05-27] MEDS: PANTOPRAZOLE 40 MG VIAL IV SCH (08:43)
[2020-05-27] MEDS: SENNOSIDES 8.6 MG TABLET PO SCH ×2 (08:43→17:19)
[2020-05-27] MEDS: FUROSEMIDE 20 MG TABLET PO SCH (08:43)
[2020-05-27] MEDS: METHIMAZOLE (5MG) 5 MG TABLET PO SCH (08:43)
[2020-05-27] MEDS: CLOTRIMAZOLE 1% 15 GM TUBE TP SCH ×2 (08:44→17:19)
[2020-05-27] MEDS: DEXAMETHASONE SOD PHOSPHATE 10 MG/ML VIAL IV SCH (08:44)
[2020-05-27] MEDS: ENOXAPARIN SODIUM 80 MG/0.8 ML DISP.SYRIN SQ SCH ×2 (08:45→20:07)
--- NOTE | 2020-05-27 09:00 | NUR ---
ICU/RN: SEDATION VACATION DONE. PT OPENS EYES, FOLLOWS COMMANDS. RESUMED SEDATION PER PROTOCOL. WILL CONTINUE TO MONITOR.
--- NOTE | 2020-05-27 09:30 | NUR ---
ICU/RN: ON PHONE, UPDATES GIVEN. NO NEW ORDERS AT THIS TIME. WILL CONTINUE TO MONITOR AND ASSESS.
[2020-05-27 09:51] LABS: ALBUMIN 2.2 g/dL (3.4-5.0); BILIRUBIN,TOTAL 0.2 mg/dL (0.2-1.0); TOTAL PROTEIN, SERUM 6.4 g/dL (6.4-8.2)
[2020-05-27 12:19] LABS: ABG BASE EXCESS 2.7 mmol/L; ABG OXYGEN SATURATION 98.8 % (92.0-98.5); ABG PCO2 46.5 mmHg (35.0-45.0); ABG PH 7.398 (7.350-7.450); ABG PO2 148.1 mmHg (75.0-100.0); AaDO2 228.6 mmHg; COHb 0.3 % (0.5-1.5); O2Hb 98.5 % (94.0-97.0); SITE, ABG Left Radial; VENT MODE, BG AC 22 450 60% +12
[2020-05-27 15:23] LABS: EOSINOPHILS % (AUTO) 0.3 % (0.0-6.0); HEMATOCRIT 36 % (33-45); HEMOGLOBIN 11.2 g/dL (11.5-14.8); LYMPHOCYTES % (AUTO) 6.4 % (20.0-44.0); MEAN CORPUSCULAR HGB CONC 32 g/dl (31.0-36.0); MEAN CORPUSCULAR VOLUME 86 fL (82-100); MONOCYTES # (AUTO) 0.2 /CMM (0.1-1.30); NEUTROPHILS # (AUTO) 15.1 /CMM (1.8-8.9); NEUTROPHILS % (AUTO) 92.3 % (43.0-81.0); PLATELET COUNT (AUTO) 502 /CMM (150-450); RED BLOOD CELL COUNT(AUTO) 4.12 MIL/uL (4.0-5.2); WHITE BLOOD COUNT (AUTO) 16.4 K/uL (4.3-11.0)
[2020-05-27 16:54] LABS: BAND % (MANUAL) 2 % (0.0-5.0); LYMPHOCYTES % (MANUAL) 10 % (16-48); MONOCYTES % (MANUAL) 1 % (0-11.0); NEUTROPHILS % (MANUAL) 87 (42-76)
[2020-05-27] MEDS: GLUCERNA 1.2 1,000 ML BOTTLE GT PRN (17:18)
--- NOTE | 2020-05-27 18:07 | NUR ---
ICU/RN: REPORT ENDORSED TO DEIRDRE SCHWARTZ. PT ON VENT SETTINGS ORDERED BY MD, NO DISTRESS NOTES. ET TUBE IN GOOD POSITION. SINUS ON TELE. BED BATH GIVEN, TURNED AND REPOSITIONED. SAFETY MEASURES TAKEN, BED IN LOW POSITION, SIDE RAILS UP, CALL LIGHT WITHIN REACH.
--- NOTE | 2020-05-27 18:57 | NUR ---
RN NOTES NO CHANGES NOTED, WILL ENDOSE TO PAPER STACKER NURSE FOR CONTINUITY OF CARE
--- NOTE | 2020-05-27 19:40 | NUR ---
SHANK SANDER OPENING NOTES, RECEIVED PATIENT IN BED, INTUBATED/SEDATED. TOLERATING VENT SETTING WELL. NO SOB OR ACUTE DISTRESS NOTED AT THIS TIME. SR ON BEDSIDE TELE MONITOR IN 70'S. OG-TUBE FEEDING, GLUCERNA @ 40ML/HR. TOLERATING WELL. IV ON L UPPER ARM MIDLINE. FLUSHING WELL, RUNNING DIPRIVAN @15MCG/KG/MIN. TOLERATING WELL, NO S/S OF INFILTRATION NOTED. ABNER SOFT WRIST RESTRAIN NOTED. NO SIGN OF PAIN. FC DRAINING YELLOW/CLEAR URIN TO THE GRAVITY. BED LOCKED/LOW POSITION. SR UP X3. HOB ELEVATED. WILL CONTINUE TO MONITOR THE PATIENT CLOSELY
[2020-05-27] MEDS: ATORVASTATIN 10 MG TABLET PO SCH (21:27)
[2020-05-27] MEDS: VANCOMYCIN 1 GM in IV D5W 250 ML IV SCH (23:07)
--- NOTE | 2020-05-27 23:08 | NUR ---
VANCOMYCIN RESULT WAS 20. CALLED SEASONAL CLERK PHARMACY AND SPOKE TO EDMUND. IT IS OK TO ADMINISTER SCHEDULED IV D5W 250 VANCOMYCIN AT THIS TIME.
[2020-05-28] VITALS (39 sets, daily range): BP systolic 85–142; BP diastolic 44–77
[2020-05-28] MEDS: BLOOD SUGAR DIAGNOSTIC 1 EACH STRIP IN SCH ×4 (00:59→17:49)
[2020-05-28] MEDS: INSULIN REGULAR, HUMAN 100 UNIT/ML 3 ML VIAL SQ PRN ×3 (01:00→17:48)
[2020-05-28] MEDS: PROPOFOL 100 ML IV PRN ×3 (01:06→22:33)
[2020-05-28 04:36] LABS: CARBON DIOXIDE 32 mmol/L (21-32); CHLORIDE 102 mmol/L (98-107); CREATININE 0.7 mg/dL (0.6-1.3); GLUCOSE 111 mg/dL (74-106); POTASSIUM 4.4 mmol/L (3.5-5.1); SODIUM SERUM 138 mmol/L (136-145); UREA NITROGEN, BLOOD 32 mg/dL (7-18)
[2020-05-28] MEDS: GABAPENTIN 100 MG CAPSULE PO SCH ×3 (05:11→20:54)
--- NOTE | 2020-05-28 06:40 | NUR ---
rt called to pt bedside at about 0600 due to vent alarming. rt arrived and tidal volume was reading 50-100ml. pt spo2 95% and greater. rn instructed to inflate ett cuff 6cc. rn stated face burler balloon was stiff. rt observed audible leak and ett at 18cm unable to pass suction catheter. rt repositioned pt head and ett tube amado position with return of tidal volume. pt spo2 100%. xray consulted and ett difficult to observe. radiology contacted by rn. rt instructed to advance ett and reposition pt. With assistance from rn and charge nurse anchorfast changed and ett advanced to 24cm and able to pass suction catheter. spo2 97% at this time. Addendum: 05/28/20 at 0705 by BRIANA BENAVIDES RT Amended: Links added.
--- NOTE | 2020-05-28 06:45 | NUR ---
ET-TUBE DISLODGED , CONFIRMED BY CHEST X-RAY, RECEIVED ORDERS FROM RADIOLOGIST TO ADVANCE ET-TUBE 4CM. TUBE ADVANCED TO 24CM AT THE LIP. X-RAY ORDERED. RESIDENT CARE AIDE RAIL FILLER ,DR GREEN NOTIFIED. Addendum: 05/28/20 at 0722 by DOUG ZACARIAS RN CORRECTION, RAIL FILLER DR GERARD WAS NOTIFIED.
--- NOTE | 2020-05-28 06:56 | NUR ---
SHOVEL ENGINEER NOTES POTASSIUM LEVEL 2.[address] SHAO. VICK WITH NEW ORDER FOR REPLACEMENT WITH KCL IV 40MEQ BOLUS. ORDER READ BACK FOR CLARIFICATION. NURSE TO CARRY OUT ORDERS PRESCRIBED Addendum: 05/28/20 at 0701 by SHANNON KOO RN DISREGARD, WRONG PATIENT
[2020-05-28] MEDS ORDERED: POTASSIUM CL. PREMIX PERIPHER. 50 ML IV SCH (07:00)
--- NOTE | 2020-05-28 07:22 | NUR ---
SMUDGER CLOSING NOTES, PATIENT IN BED, INTUBATED/SEDATED. PET RADIOLOGIST ORDER ET TUBE WAS ADVANCED 4CM MORE, CURRENTLY 24CM AT LIP LINE COAL EQUIPMENT OPERATOR WAS NOTIFIED. TOLERATING VENT SETTING WELL. NO SOB OR ACUTE DISTRESS NOTED AT THIS TIME. SR ON BEDSIDE TELE MONITOR IN 70'S. OG-TUBE FEEDING, GLUCERNA @ 40ML/HR. TOLERATING WELL. IV ON L UPPER ARM MIDLINE. FLUSHING WELL, RUNNING DIPRIVAN @15MCG/KG/MIN. TOLERATING WELL, NO S/S OF INFILTRATION NOTED. ABNER SOFT WRIST RESTRAIN NOTED. NO SIGN OF PAIN. FC DRAINING YELLOW/CLEAR URIN TO THE GRAVITY. BED LOCKED/LOW POSITION. SR UP X3. HOB ELEVATED. ENDORSED THE PATIENT TO AM RN FOR SIDDHARTHA.
--- NOTE | 2020-05-28 07:30 | NUR ---
ICU/RN: INITIAL NOTES,AM RECEIVED REPORT FROM NIGHT NURSE. PT INTUBATED AND SEDATED. ETT 7.5, 24 CM AT THE LIP, ON VENT SETTINGS ORDERED BY MD. TUBE DISLODGED OVERNIGHT, CORRECTED, AWAITING FOR CHEST XRAY TO CONFIRM PLACEMENT. PT OPENS EYES, FOLLOWS COMMANDS. PT ON TELE, SINUS. OG TUBE IN PLACE, TUBE FEEDING INFUSING, TOLERATING WELL. MCDONALD CATH DRAINING YELLOW URINE. ALL NEEDS WILL BE ATTENDED TO. SAFETY MEASURES TAKEN, BED IN LOW POSITION, SIDE RAILS UP, CALL LIGHT WITHIN REACH.
[2020-05-28 08:28] LABS: ABG BASE EXCESS 1.2 mmol/L; ABG OXYGEN SATURATION 94.4 % (92.0-98.5); ABG PCO2 42.3 mmHg (35.0-45.0); ABG PH 7.407 (7.350-7.450); ABG PO2 69.9 mmHg (75.0-100.0); AaDO2 166.7 mmHg; COHb 0.5 % (0.5-1.5); MetHb 0.1 % (0.0-1.5); O2Hb 93.8 % (94.0-97.0); SITE, ABG Left Radial; VENT MODE, BG AC 22 400 +5 50%
[2020-05-28] MEDS: DEXAMETHASONE SOD PHOSPHATE 10 MG/ML VIAL IV SCH (08:43)
[2020-05-28] MEDS: PANTOPRAZOLE 40 MG VIAL IV SCH (08:43)
[2020-05-28] MEDS: SENNOSIDES 8.6 MG TABLET PO SCH ×2 (08:43→16:54)
[2020-05-28] MEDS: FUROSEMIDE 20 MG TABLET PO SCH (08:43)
[2020-05-28] MEDS: ENOXAPARIN SODIUM 80 MG/0.8 ML DISP.SYRIN SQ SCH ×2 (08:43→20:56)
[2020-05-28] MEDS: MAGNESIUM OXIDE 400 MG TABLET PO SCH (08:43)
[2020-05-28] MEDS: METHIMAZOLE (5MG) 5 MG TABLET PO SCH (08:44)
[2020-05-28] MEDS: CLOTRIMAZOLE 1% 15 GM TUBE TP SCH ×2 (08:44→16:54)
[2020-05-28] MEDS: busPIRone 5 MG TABLET PO SCH ×2 (08:44→16:54)
[2020-05-28] MEDS: METFORMIN XR 500 MG TAB.SR.24H PO SCH (08:44)
[2020-05-28] MEDS: CYANOCOBALAMIN 500 MCG TABLET PO SCH (08:44)
--- NOTE | 2020-05-28 09:15 | NUR ---
ICU/RN: SEDATION VACATION: PT OPENS EYES, FOLLOWS COMMANDS. NO ACUTE DISTRESS NOTED. WILL CONTINUE TO MONITOR AND TITRATE UP PER PROTOCOL IF AGITATION NOTED.
[2020-05-28] MEDS: FUROSEMIDE 40 MG/4 ML VIAL IV SCH (11:26)
[2020-05-28 13:47] LABS: ABG BASE EXCESS 5.3 mmol/L; ABG OXYGEN SATURATION 93.9 % (92.0-98.5); ABG PCO2 39.2 mmHg (35.0-45.0); ABG PH 7.487 (7.350-7.450); ABG PO2 65.1 mmHg (75.0-100.0); COHb 0.2 % (0.5-1.5); O2Hb 93.7 % (94.0-97.0); SITE, ABG Right Radial; VENT MODE, BG ac 22 450 +8 40%
--- NOTE | 2020-05-28 18:44 | NUR ---
ICU/RN: ENDING NOTES,AM REPORT WILL BE ENDORSED TO NIGHT NURSE FOR SIDDHARTHA. PT INTUBATED AND SEDATED, ON VENT SETTINGS NO DISTRESS NOTED. SINUS ON TELE. ALL NEEDS ATTENDED TO, SAFETY MEASURES TAKEN, BED BATH GIVEN. LINENS CHANGED, WOUND CARE RENDERED. BED IN LOW POSITION, SIDE RAILS UP, CALL LIGHT WITHIN REACH. WILL CONTINUE CARE.
--- NOTE | 2020-05-28 20:30 | NUR ---
RN NOTES RECEIVED PATIENT SEDATED, ORALLY INTUBATED WITH ETT 7.5 POSITION AT 23 CM AT LIPLINE. NO APPARENT RESPIRATORY DISTRESS. NO SIGNS OF PAIN . SR ON TELE MONITOR SATURATION >92%. WARM TO TOUCH TEMPERATURE 99.5 DEG FHARENHEIGHT. PRESENT WITH OGTF GLUCERNA @ 40 ML/HR PATENCY CHECKED WITH ZERO RESIDUAL AND FLUSHED WELL WITH H2O KEPT HOB ELEVATED. IV SITE ON JUAN MIDLINE INTACT AND PATENT WITH GOOD BLOOD RETURN RUNNING WITH DIPRIVAN TITRATED ORDERED. STRICTLY ISOLATION FOR +COVID, MRSA NARES AND E.COLI ESBL URINE OBSERVED. ISOLATION PRECAUTION MET. WILL CLOSELY MONITOR.
[2020-05-28] MEDS: ATORVASTATIN 10 MG TABLET PO SCH (21:25)
[2020-05-28] MEDS: VANCOMYCIN 0.75 GM in IV D5W 250 ML IV SCH (22:37)
[2020-05-29] VITALS (35 sets, daily range): BP systolic 86–124; BP diastolic 44–68
--- NOTE | 2020-05-29 | NUR ---
RN NOTES PATIENT STABLE NO LABORED BREATHING, NOTED SATURATION GOING DOWN TO 87% WITH A GOOD WAVE FORM. RT MADE AWARE TITRATED FIO2 50% saturation slowly going up to 95%. WILL CONTINUE TO MONITOR.
[2020-05-29] MEDS: BLOOD SUGAR DIAGNOSTIC 1 EACH STRIP IN SCH ×5 (00:22→23:38)
[2020-05-29] MEDS: INSULIN REGULAR, HUMAN 100 UNIT/ML 3 ML VIAL SQ PRN ×4 (00:23→23:41)
[2020-05-29 04:41] LABS: CALCIUM, SERUM 9.2 mg/dL (8.5-10.1); CREATININE 0.8 mg/dL (0.6-1.3); POTASSIUM 4.3 mmol/L (3.5-5.1)
[2020-05-29] MEDS: PROPOFOL 100 ML IV PRN ×2 (06:18→17:44)
[2020-05-29] MEDS: IV NS 0.9% 250 ML IV PRN (06:20)
[2020-05-29] MEDS ORDERED: GABAPENTIN 100 MG CAPSULE ONE (06:26)
[2020-05-29] MEDS: PANTOPRAZOLE 40 MG VIAL IV SCH (06:31)
[2020-05-29] MEDS: GABAPENTIN 100 MG CAPSULE PO SCH ×3 (06:31→21:50)
--- NOTE | 2020-05-29 07:01 | NUR ---
RN NOTES NO SIGNIFICANT CHANGES FIO2 KEPT ON 50%. PT TOLERATED WELL SATURATION REMAINED >92%. AFEBRILE TMAX 99.5. BED BATH DONE, HOB KEPT ELEVATED , OGT INTACT AND PATENT. IV SITE INTACT CONTINUE WITH DIPRIVAN TITRATED ORDERED. PT REMAINED CALM AND COOPERATIVE, FOLLOWS COMMAND. NO SIGNS OF PAIN. KEPT PT CLEAN AND DRY. MCDONALD CATH DRAINED WITH YELLOW CLEAR COLOR URINE. WILL ENDORSE CONT. OF CARE TO AM NURSE.
--- NOTE | 2020-05-29 07:30 | NUR ---
ICU INITIAL RN NOTE RECEIVED PATIENT AWAKE, CALM AND COOPERATIVE. ABLE TO MAKE NEEDS KNOWN. NO S/S OF PAIN OR DISCOMFORT AT THIS TIME. ON DIPRIVAN AT 15MGC/KG/MIN. ETT 7.5/23CM WITH VENT SETTINGS AC 22, TV 450, FIO2 50%, PEEP 6. ON TELE MONITOR SR. WITH OGT, PATENT AND INTACT, IN PLACE, TOLERATING GTF. F/C PATENT AND DRAINING BY GRAVITY. BILATERAL SOFT RESTRAINTS IN PLACE WITH GOOD CIRCULATION. HOB ELEVATED. TURNED AND REPOSITIONED. SIDE RAIL UP AND LOCKED. BED KEPT AT LOWEST POSITION. ISOLATION PRECAUTIONS OBSERVED. WILL CONTINUE TO MONITOR.
[2020-05-29] MEDS: FUROSEMIDE 40 MG/4 ML VIAL IV SCH (07:59)
[2020-05-29] MEDS: DEXAMETHASONE SOD PHOSPHATE 10 MG/ML VIAL IV SCH (08:00)
[2020-05-29] MEDS: METFORMIN XR 500 MG TAB.SR.24H PO SCH (08:02)
[2020-05-29] MEDS: ENOXAPARIN SODIUM 80 MG/0.8 ML DISP.SYRIN SQ SCH ×2 (08:02→21:50)
[2020-05-29] MEDS: SENNOSIDES 8.6 MG TABLET PO SCH ×2 (08:02→17:43)
[2020-05-29] MEDS: busPIRone 5 MG TABLET PO SCH ×2 (08:04→17:43)
[2020-05-29] MEDS: METHIMAZOLE (5MG) 5 MG TABLET PO SCH (08:04)
[2020-05-29] MEDS: CLOTRIMAZOLE 1% 15 GM TUBE TP SCH ×2 (08:05→17:44)
[2020-05-29] MEDS: CYANOCOBALAMIN 500 MCG TABLET PO SCH (08:05)
[2020-05-29] MEDS: MAGNESIUM OXIDE 400 MG TABLET PO SCH (08:05)
[2020-05-29 08:24] LABS: ABG OXYGEN SATURATION 88.2 % (92.0-98.5); ABG PCO2 33.3 mmHg (35.0-45.0); ABG PH 7.492 (7.350-7.450); MetHb 0.2 % (0.0-1.5); SITE, ABG Left Radial; VENT MODE, BG AC 22 450 50% +6
--- NOTE | 2020-05-29 08:43 | NUR ---
TRANSPLANT WORKER NOTE RECEIVED CALL FROM DR UHRD REQUESTED TO [facility] TO SEE PATIENT. UPDATES GIVEN. PER DR HURD KEEP PATIENT INTUBATED AT THIS TIME. Addendum: 05/29/20 at 0928 by ELTON EDMONDSON RN ADD TO NOTE: DR HURD AWARE OF PO2 54 AND FIO2 INCREASED TO 60%
--- NOTE | 2020-05-29 10:17 | NUR ---
nicu rn note seen and examined by dr mccullough with orders to increase peep to 8, RT at bedside
[2020-05-29] MEDS: ACETAMINOPHEN 325 MG TABLET PO PRN (17:43)
--- NOTE | 2020-05-29 19:05 | NUR ---
REGULATORY AFFAIRS ANALYST CLOSING NOTE TOLERATING CURRENT VENT SETTINGS. NO DISTRESS NOTED. SR ON MONITOR. TOLERATING GTF. OGT IN PLACE, PATENT AND INTACT. F/C DRAINING BY GRAVITY. BILATERAL WRIST RESTRAINTS IN PLACE FOR SAFETY. ALL DUE MEDS GIVEN. HOB ELEVATED. TURNED AND REPOSITIONED Q2 AND PRN. SIDE RAILS UP AND LOCKED. BED KEPT AT LOWEST POSITION. WILL ENDORSE CONTINUITY OF CARE TO PM NURSE.
--- NOTE | 2020-05-29 19:40 | NUR ---
RN NOTES PATIENT IS ORALLY INTUBATED WT ETT 7.5A ND 23 CM AT LIPLINE WITH VENT SETTING AC 22 TV 450 FIO2 60% AND PEEP 8 TOLERATED WELL SATURATION 99%. SUCTIONED WITH SMALL TO MOD. LIGHT BLOODY SECRETION. AFEBRILE. TEMP 98.9 DEG F. PT IS SEDATED WITH DIPRIVAN FOR SAFETY. OPENS EYES AND FOLLOWS COMMAND. DR ON TELE MONITOR. WITH OGTF OF GLUCERNA TOLERATED WELL. WITH NO RESIDUAL. HOB KEPT ELEVATED FOR ASP. PRECAUTION. IV SITE ON JUAN MIDLINE WITH DIPRIVAN TITRATED ORDERED. . PATIENT HAS MCDONALD CATH DRAINED VIA GRAVITY AND KEPT OFF FROM THE FLOOR. T/R PT COMFORTABLE. WILL CLOSELY MONITOR.
[2020-05-29] MEDS: ATORVASTATIN 10 MG TABLET PO SCH (21:50)
[2020-05-29] MEDS: VANCOMYCIN 0.75 GM in IV D5W 250 ML IV SCH (23:38)
[2020-05-30] VITALS (35 sets, daily range): BP systolic 90–133; BP diastolic 47–69
[2020-05-30] MEDS: PROPOFOL 100 ML IV PRN ×3 (00:38→17:51)
--- NOTE | 2020-05-30 03:44 | NUR ---
RT NOTE Pt Rec'd orally intubated via ETT #7.5 secured at 23CM at the lipline. Pt on [facility] vent on AC mode settings as charted. Pt shows no signs of resp distress or sob. sx'd for mod amt of bloody secretions. Alarms are set and audible. Vent plugged into red outlet. Ambu bag bedside. Will continue to monitor. Addendum: 05/30/20 at 0344 by FREIDA DUBOSE RT Amended: Links added.
[2020-05-30 04:50] LABS: CALCIUM, SERUM 9.1 mg/dL (8.5-10.1); CREATININE 0.8 mg/dL (0.6-1.3)
[2020-05-30] MEDS: IV NS 0.9% 250 ML IV PRN (05:31)
[2020-05-30] MEDS: GABAPENTIN 100 MG CAPSULE PO SCH ×3 (05:31→21:45)
[2020-05-30] MEDS: BLOOD SUGAR DIAGNOSTIC 1 EACH STRIP IN SCH ×2 (05:40→12:05)
--- NOTE | 2020-05-30 05:49 | NUR ---
RN NOTES PATIENT REMAINED STABLE WITH THE SAME ETT AND VENT SETTING TOLERATED WELL SATURATION 99-100%. AFEBRILE. VSS, CONTINUE WITH DIPRIVAN TITRATED ORDERED. OGT INTACT AND PATENCY CHECKED.. HOB KEPT ELEVATED. IV SITE INTACT. BED BATH DONE AND TOLERATED WELL. CONTINEU ON ISOLATION PRECAUTION FOR COVID19, MRSA NARES AND ESBL URINE. WILL CONTINUE POC.
--- NOTE | 2020-05-30 07:05 | NUR ---
RN NOTE RECEIVED PT ON BED, ORALLY INTUBATED WITH, ETT 7.5 , 23 CM AT LIPLINE WITH VENT SETTING AC 22 TV 450 FIO2 60% AND PEEP 8 TOLERATED WELL SATURATION 99%. , PT IS SEDATED WITH DIPRIVAN AT 15 MCG/KG/MIN, FOR SAFETY. OPENS EYES AND FOLLOWS COMMAND. ON TELE MONITOR HR IN 60'S , WITH OG TF OF GLUCERNA AT 40CC/HR NO RESIDUAL NOTED, HOB ELEVATED, L UPPER ARM MIDLINE SITE CLEAN, DRY AND INTACT, PATIENT HAS MCDONALD CATH DRAINED VIA GRAVITY AND KEPT OFF FROM THE FLOOR. SR UP x3, CALL LIGHT WITHIN EASY REACH, BED LOCKED AND IN LOWEST POSITION, CONTINUE TO MONITOR.
[2020-05-30] MEDS: PANTOPRAZOLE 40 MG VIAL IV SCH (07:19)
[2020-05-30] MEDS: busPIRone 5 MG TABLET PO SCH ×2 (08:10→16:24)
[2020-05-30] MEDS: METHIMAZOLE (5MG) 5 MG TABLET PO SCH (08:10)
[2020-05-30] MEDS: SENNOSIDES 8.6 MG TABLET PO SCH ×2 (08:10→16:24)
[2020-05-30] MEDS: MAGNESIUM OXIDE 400 MG TABLET PO SCH (08:10)
[2020-05-30] MEDS: CYANOCOBALAMIN 500 MCG TABLET PO SCH (08:10)
[2020-05-30] MEDS: METFORMIN XR 500 MG TAB.SR.24H PO SCH (08:10)
[2020-05-30] MEDS: FUROSEMIDE 40 MG/4 ML VIAL IV SCH (08:11)
[2020-05-30] MEDS: ENOXAPARIN SODIUM 80 MG/0.8 ML DISP.SYRIN SQ SCH ×2 (08:11→21:46)
[2020-05-30] MEDS: CLOTRIMAZOLE 1% 15 GM TUBE TP SCH ×2 (08:11→16:24)
[2020-05-30 08:14] LABS: ABG BASE EXCESS 7.8 mmol/L; ABG OXYGEN SATURATION 98.4 % (92.0-98.5); ABG PCO2 39.3 mmHg (35.0-45.0); ABG PH 7.518 (7.350-7.450); ABG PO2 114.3 mmHg (75.0-100.0); AaDO2 270.3 mmHg; COHb 0.1 % (0.5-1.5); MetHb 0.2 % (0.0-1.5); O2Hb 98.1 % (94.0-97.0); PEEP,BG 8 cm H2O; SITE, ABG Right Radial; VENT MODE, BG AC 450 22 +8 60%
--- NOTE | 2020-05-30 12:22 | NUR ---
RN NOTES ORDER RECEIVED FROM DR FUNES TO DECREASE FIO2 TO 40% .
[2020-05-30] MEDS: GLUCERNA 1.2 1,000 ML BOTTLE GT PRN (16:21)
--- NOTE | 2020-05-30 18:07 | NUR ---
RN NOTES PATIENT REMAINED STABLE AND INTUBATED,SEDATED ON DIPRIVAN AT 15 MCG/KG/MIN, FIO2 AT 40%, OGT INTACT AND PATENCY CHECKED. HOB KEPT ELEVATED. IV SITE INTACT, NO SIGNIFICANT CHANGES NOTED ON THIS SHIFT, SR UP x3, CALL LIGHT WITHIN EASY REACH, CONTINUE ON ISOLATION PRECAUTION FOR COVID19, MRSA NARES AND ESBL URINE. WILL ENDORSE TO BLOCKER METAL BASE NURSE FOR CONTINUITY OF CARE .
--- NOTE | 2020-05-30 19:30 | NUR ---
RN NOTES PATIENT IS ORALLY INTUBATED WT ETT 7.5A ND 23 CM AT LIPLINE WITH VENT SETTING AC 22 TV 450 FIO2 40% AND PEEP 5 TOLERATED WELL SATURATION 93%. SUCTIONED WITH SMALL TO MOD. LIGHT BLOODY SECRETION. AFEBRILE. TEMP 100.1 DEG F. PT IS SEDATED WITH DIPRIVAN FOR SAFETY. OPENS EYES AND FOLLOWS COMMAND. SR ON TELE MONITOR. WITH OGTF OF GLUCERNA @ 40 ML/HR TOLERATED WELL. WITH NO RESIDUAL. HOB KEPT ELEVATED FOR ASP. PRECAUTION. IV SITE ON JUAN MIDLINE WITH DIPRIVAN @ 15 MCK/KG/MIN TITRATED ORDERED. PATIENT HAS MCDONALD CATH DRAINED VIA GRAVITY AND KEPT OFF FROM THE FLOOR. T/R PT COMFORTABLE. WILL CONT/ POC.
[2020-05-30] MEDS: ATORVASTATIN 10 MG TABLET PO SCH (21:44)
[2020-05-31] VITALS (26 sets, daily range): BP systolic 86–111; BP diastolic 46–68
[2020-05-31] MEDS: PROPOFOL 100 ML IV PRN ×2 (02:57→17:40)
[2020-05-31 05:03] LABS: CALCIUM, SERUM 9.1 mg/dL (8.5-10.1); CREATININE 0.8 mg/dL (0.6-1.3)
[2020-05-31] MEDS: GABAPENTIN 100 MG CAPSULE PO SCH ×3 (06:26→21:05)
--- NOTE | 2020-05-31 07:01 | NUR ---
RN NOTES PATIENT REMAINED INTUBATED, ETT AND VENT SETTING TOLERATED WELL. AFEBRILE. VSS. PATIENT FIO2 KEPT AT 50%. INCONTINENT CARE RENDERED. NSR ON TELE MONITOR. OGT IN TACT AND PATENT KEPT HOB ELEVATED TO PREVENT ASP. PNA. GLUCERNA 1.2 @ 40 L.HR TOLERATED WELL. IV SITE ON JUAN MIDLINE WITH DIPRIVAN KEPT @ 15 MCG/KG/MIN PATIETN REMAINED CALM AND COOPERATIVE . KEPT PT CLEAN AND DRY. BED BATH TOLERATED WELL. ENDORSED CONTINUITY OF CARE TO AM NURSE.
[2020-05-31] MEDS: PANTOPRAZOLE 40 MG VIAL IV SCH (07:31)
--- NOTE | 2020-05-31 07:55 | NUR ---
RN OPENING NOTES RECEIVED PATIENT RESTING IN BED COMFORTABLY BED, NO S/SX OF DISTRESS. PT IS SEDATED, INTUBATED, AND FOLLOWS COMMANDS. ETT 7.5, TOLERATING VENT SETTINGS WELL. TELE MONITOR SHOWING SR. OGT IS INTACT, INFUSING GLUCERNA AT 40 ML.HR. MCDONALD CATH IS PATENT AND INTACT, DRAINING CLEAR AND YELLOW URINE BY GRAVITY. SACRAL AND ABD FOLD REDNESS PRESENT. JUAN MIDLINE IS PATENT AND INTACT, INFUSING DIPRIVAN AT 15 MCG/MIN. COVID ISO HAS BEEN IMPLEMENTED AND ENFORCED. SAFETY MEASURES HAVE BEEN IMPLEMENTED, CALL LIGHT IS WITHIN REACH, BED IS IN LOWEST AND LOCKED POSITION, SIDE RIALS UP X2, WILL CONTINUE TO MONITOR FOR ANY CHANGES.
[2020-05-31 08:19] LABS: ABG BASE EXCESS 8.6 mmol/L; ABG OXYGEN SATURATION 88.5 % (92.0-98.5); ABG PCO2 43.6 mmHg (35.0-45.0); ABG PH 7.494 (7.350-7.450); ABG PO2 53.3 mmHg (75.0-100.0); AaDO2 254.2 mmHg; COHb 0.1 % (0.5-1.5); MetHb 0.1 % (0.0-1.5); O2Hb 88.3 % (94.0-97.0); PEEP,BG 5 cm H2O; SITE, ABG Left Radial; VT, ABG 450 mL
[2020-05-31] MEDS: METHIMAZOLE (5MG) 5 MG TABLET PO SCH (08:22)
[2020-05-31] MEDS: busPIRone 5 MG TABLET PO SCH ×2 (08:22→17:03)
[2020-05-31] MEDS: METFORMIN XR 500 MG TAB.SR.24H PO SCH (08:22)
[2020-05-31] MEDS: CYANOCOBALAMIN 500 MCG TABLET PO SCH (08:22)
[2020-05-31] MEDS: MAGNESIUM OXIDE 400 MG TABLET PO SCH (08:22)
[2020-05-31] MEDS: SENNOSIDES 8.6 MG TABLET PO SCH ×2 (08:22→17:03)
[2020-05-31] MEDS: FUROSEMIDE 40 MG/4 ML VIAL IV SCH (08:22)
[2020-05-31] MEDS: CLOTRIMAZOLE 1% 15 GM TUBE TP SCH ×2 (08:23→17:04)
[2020-05-31] MEDS: ENOXAPARIN SODIUM 80 MG/0.8 ML DISP.SYRIN SQ SCH ×2 (08:24→21:09)
--- NOTE | 2020-05-31 09:54 | NUR ---
RN NOTES PT BP WENT DOWN TO 84/52 ON 15 MCG/MIN PROPOFOL. TITRATED DOWN TO 5 MCG/MIN IN 5 MIN INCREMENTS, BP IS NOW 111/54, WILL CONTINUE TO MONITOR FOR ANY CHANGES.
--- NOTE | 2020-05-31 11:00 | NUR ---
RN NOTES PT MILDLY AGITATED, INCREASED DIPRIVAN DOSE TO 10 MCG/MIN
--- NOTE | 2020-05-31 11:00 | NUR ---
ICU/RN: RECEIVED REPORT FROM ROSE GILMORE. WILL CONTINUE CARE. PT INTUBATED AND SEDATED, ON VENT SETTINGS ORDERED BY MD, NO ACUTE DISTRESS NOTED. PT SINUS ON TELE. OG TUBE FEEDING INFUSING, TOLERATING WELL. LEFT UPPER ARM MIDLINE PATENT AND INTACT, NO S/S OF INFECTION OR INFILTRATION NOTED. ALL NEEDS WILL BE ATTENDED TO, SAFETY MEASURES TAKEN, BED IN LOW POSITION, SIDE RAILS UP, CALL LIGHT WITHIN REACH. WILL CONTINUE CARE.
--- NOTE | 2020-05-31 11:35 | NUR ---
RN NOTES ENDORSED TO IRINA RN FOR SIDDHARTHA
--- NOTE | 2020-05-31 11:50 | NUR ---
ICU/RN: VENT CHANGES PER EXCAVATING SUPERVISOR. FI02 60%, PEEP 10. WILL FOLLOW THROUGH
--- NOTE | 2020-05-31 17:30 | NUR ---
ICU/RN: MCDONALD DISLODGED, NEW MCDONALD INSERTED. BED BATH GIVEN, WOUND CARE DONE. ALL NEEDS ATTENDED TO.
[2020-05-31] MEDS: ATORVASTATIN 10 MG TABLET PO SCH (21:05)
--- NOTE | 2020-05-31 21:30 | NUR ---
NOTICED SMALL BLEEDING COMING FROM TRACH SUCTION TUBING. WILL CONTINUE TO ADMINISTER LOVENOX BUT WILL ENDORSE TO AM NURSE TO FOLLOW UP WITH DR. HURD. NO NEW CBC LAB HAVE BEEN DRAWN SINCE 05/27/20 AND WILL NEED NEW LABS.
--- NOTE | 2020-05-31 22:20 | NUR ---
ICU/RN RECEIVED PATIENT INTUBATED AND MILDLY SEDATED. PATIENT SHOWS NO SIGNS OF ANY DISTRESS AT THE MOMENT. PATIENT IS A TAMAZIGHT SPEAKER, ALERT, AND ABLE TO NOD HEAD TO ANSWER TO YES OR NO QUESTIONS. PATIENT IS SATURATING AT 98% WITH NO SIGN OF ANY RESPIRATORY DISTRESS. PATIENT IS SHOWING NSR ON BEDSIDE MONITOR. JUAN MIDLINE INTACT AND PATENT RUNNING DIPRIVAN AT 10MCG/KG/MIN, AND TKO INFUSING. OGT IN PLACE WITH GLUCERNA AT 40ML/HR WITH NO RESIDUAL. FC IN PLACE DRAINING VIA GRAVITY WITH YELLOW URINE OUTPUT NOTED. NOTICED TRACH SUCTION TUBING DOES HAVE SOME RED BLEEDING INSIDE. WILL MONITOR. ALL SAFEY PRECAUTIONS APPLIED. WILL CONTINUE TO MONITOR PATIENT.
[2020-06-01] VITALS (38 sets, daily range): BP systolic 75–109; BP diastolic 31–60
[2020-06-01] MEDS: IV NS 0.9% 250 ML IV PRN ×2 (04:33→18:53)
[2020-06-01] MEDS: GLUCERNA 1.2 1,000 ML BOTTLE GT PRN (04:33)
[2020-06-01] MEDS: ACETAMINOPHEN 325 MG TABLET PO PRN ×2 (04:36→16:46)
[2020-06-01] MEDS: GABAPENTIN 100 MG CAPSULE PO SCH ×3 (04:58→21:18)
[2020-06-01 05:01] LABS: CREATININE 0.7 mg/dL (0.6-1.3); POTASSIUM 3.9 mmol/L (3.5-5.1)
[2020-06-01] MEDS: PROPOFOL 100 ML IV PRN ×2 (05:06→16:46)
--- NOTE | 2020-06-01 08:00 | NUR ---
ICU/RN PT IS INTUBATED ON THE VENT AC MODE,FIO2-60%,PEEP-10.SAT O2-99%.T-100.4.V/S STABLE.SEDATED ON DIPRIVAN DRIP.LEFT UPPER ARM MID LINE.OG TUBE IN PLACE INFUSING WITH GLUCERNA AT 40 ML/HR ,NO RESIDUAL.F/C DRAINING WITH YELLOW URINE.BILATERAL SOFT WRIST RESTRAINS ON.SUCTION PROVIDED,REPOSITION FOR COMFORT.LABS REVIEW . NOTIFIED.
[2020-06-01 08:18] LABS: ABG BASE EXCESS 7.2 mmol/L; ABG OXYGEN SATURATION 97.3 % (92.0-98.5); ABG PCO2 44.6 mmHg (35.0-45.0); ABG PH 7.469 (7.350-7.450); ABG PO2 103.7 mmHg (75.0-100.0); COHb 0.3 % (0.5-1.5); MetHb 0.5 % (0.0-1.5); O2Hb 96.5 % (94.0-97.0); PEEP,BG 10 cm H2O; SITE, ABG Right Radial; VENT MODE, BG AC 60%; VT, ABG 450 mL
[2020-06-01] MEDS: METHIMAZOLE (5MG) 5 MG TABLET PO SCH (08:49)
[2020-06-01] MEDS: MAGNESIUM OXIDE 400 MG TABLET PO SCH (08:49)
[2020-06-01] MEDS: PANTOPRAZOLE 40 MG VIAL IV SCH (08:49)
[2020-06-01] MEDS: FUROSEMIDE 40 MG/4 ML VIAL IV SCH (08:49)
[2020-06-01] MEDS: SENNOSIDES 8.6 MG TABLET PO SCH ×2 (08:49→16:08)
[2020-06-01] MEDS: CYANOCOBALAMIN 500 MCG TABLET PO SCH (08:49)
[2020-06-01] MEDS: METFORMIN XR 500 MG TAB.SR.24H PO SCH (08:50)
[2020-06-01] MEDS: busPIRone 5 MG TABLET PO SCH ×2 (08:50→16:08)
[2020-06-01] MEDS: ENOXAPARIN SODIUM 80 MG/0.8 ML DISP.SYRIN SQ SCH ×2 (08:51→21:19)
[2020-06-01] MEDS: CLOTRIMAZOLE 1% 15 GM TUBE TP SCH ×2 (08:53→16:09)
--- NOTE | 2020-06-01 09:15 | NUR ---
ICU.RN DUE MEDS ARE GIVEN ORDERED.
--- NOTE | 2020-06-01 20:00 | NUR ---
GLYCERINE PLANT OPERATOR NOTE RECEIVED PT IN BED SUPINE. SEMI SEDATED. RT SUCTIONING HER. REMAIN ON ETT/VENT TOLERATING THE SETTINGS WELL. NO DISTRESS OR DISCOMFORT NOTED. NO S/S OF PAIN NOTED. ON FEVER NOTED. RECTAL TEMP 99.7 NOTED. COOLING BLANKET ON. ON TELE MONITOR SR 74. OGT INTACT AND PATENT INFUSING GLUCERNA AT 40 ML/HR, 0 ML RESIDUAL NOTED. JUAN WITH MIDLINE INFUSING DEPRIVAN AT 10 MCG/KG/MIN. F/C INTACT AND PATENT DRAINING YELLOWISH COLOR URINE. REPOSITION FOR SKIN MANAGEMENT AND COMFORT. SIDE RAILS UP X 2 AND CALL LIGHT WITHIN REACH. CONTINUE TO MONITOR HER.
--- NOTE | 2020-06-01 20:04 | NUR ---
ANTHROPOLOGICAL LINGUIST NOTE SOFT WRIST RESTRAINTS ON. PT IS CALM AND COOPERATIVE. NO DISTRESS NOTED. SKIN AROUND RESTRAINTS WNL.
[2020-06-01] MEDS: ATORVASTATIN 10 MG TABLET PO SCH (21:19)
[2020-06-02] VITALS (40 sets, daily range): BP systolic 84–133; BP diastolic 43–80
[2020-06-02 04:53] LABS: CARBON DIOXIDE 33 mmol/L (21-32); CHLORIDE 100 mmol/L (98-107); CREATININE 0.7 mg/dL (0.6-1.3); GLUCOSE 122 mg/dL (74-106); POTASSIUM 4.1 mmol/L (3.5-5.1); SODIUM SERUM 137 mmol/L (136-145); UREA NITROGEN, BLOOD 30 mg/dL (7-18)
[2020-06-02 04:58] LABS: BASOPHILS # (AUTO) 0.1 /CMM (0.0-0.2); BASOPHILS % (AUTO) 0.7 % (0.0-2.0); EOSINOPHILS % (AUTO) 3.2 % (0.0-6.0); HEMATOCRIT 35 % (33-45); HEMOGLOBIN 10.9 g/dL (11.5-14.8); LYMPHOCYTES # (AUTO) 1.9 /CMM (0.8-4.8); LYMPHOCYTES % (AUTO) 15.3 % (20.0-44.0); MEAN CORPUSCULAR HGB CONC 31 g/dl (31.0-36.0); MEAN CORPUSCULAR VOLUME 88 fL (82-100); MONOCYTES # (AUTO) 0.4 /CMM (0.1-1.30); MONOCYTES % (AUTO) 3.5 % (2.0-12.0); NEUTROPHILS # (AUTO) 9.6 /CMM (1.8-8.9); NEUTROPHILS % (AUTO) 77.3 % (43.0-81.0); PLATELET COUNT (AUTO) 288 /CMM (150-450); WHITE BLOOD COUNT (AUTO) 12.4 K/uL (4.3-11.0)
[2020-06-02] MEDS: GLUCERNA 1.2 1,000 ML BOTTLE GT PRN (05:03)
[2020-06-02] MEDS: GABAPENTIN 100 MG CAPSULE PO SCH ×3 (05:03→21:08)
[2020-06-02] MEDS: PROPOFOL 100 ML IV PRN ×2 (05:03→14:09)
--- NOTE | 2020-06-02 06:22 | NUR ---
DIESEL POWERPLANT MECHANIC HELPER NOTE PT IN BED AWAKE. CALM AND COOPERATIVE. NO DISTRESS OR DISCOMFORT NOTED. NO FEVER DURING THE SHIFT. COOLING BLANKET REMOVED. PT C/O OF VERY COLD. TOLERATING ETT/VENT SETTINGS. OGT FEEDING INFUSING WELL. ON DIPRIVAN 10 MCG/KG/MIN. F/C INTACT AND PATENT DRAINING DARK YELLOWISH COLOR URINE. ON TELE MONITOR SR 80. SOFT WRIST RESTRAINTS ON. REPOSITION HER Q2H, KEPT HER DRY AND CLEAN. SIDE RAILS UP X 3 AND CALL LIGHT WITHIN REACH. WILL ENDORSE TO DAY SHIFT NURSE FOR CONTINUE TO CARE.
--- NOTE | 2020-06-02 07:00 | NUR ---
RN NOTES RECEIVED PT ON BED, INTUBATED, SEDATED, ON DIPRIVAN AT 15 MCG/KG/MIN, ON VENT, TOLERATING VENT SETTING WELL , O2 SAT WNL, VSS STABLE, ON TELE SR , HR IN 70'S , LEFT UPPER ARM MID LINE SITE CLEAN, DRY AND INTACT, OG TUBE IN PLACE INFUSING WITH GLUCERNA AT 40 ML/HR ,NO RESIDUAL.F/C DRAINING WITH YELLOW URINE.BILATERAL SOFT WRIST RESTRAINS ON FOR SAFETY .SUCTION PROVIDED,REPOSITION FOR COMFORT, SR UP x3, CALL LIGHT WITHIN EASY REACH, BED LOCKED AND IN LOWEST POSITION, CONTINUE TO MONITOR .
[2020-06-02 07:06] LABS: BILIRUBIN,TOTAL 0.3 mg/dL (0.2-1.0)
[2020-06-02] MEDS: busPIRone 5 MG TABLET PO SCH ×2 (08:13→16:21)
[2020-06-02] MEDS: PANTOPRAZOLE 40 MG VIAL IV SCH (08:13)
[2020-06-02] MEDS: CYANOCOBALAMIN 500 MCG TABLET PO SCH (08:14)
[2020-06-02] MEDS: ENOXAPARIN SODIUM 80 MG/0.8 ML DISP.SYRIN SQ SCH ×2 (08:14→21:09)
[2020-06-02] MEDS: SENNOSIDES 8.6 MG TABLET PO SCH ×2 (08:14→16:21)
[2020-06-02] MEDS: METFORMIN XR 500 MG TAB.SR.24H PO SCH (08:15)
[2020-06-02] MEDS: FUROSEMIDE 40 MG/4 ML VIAL IV SCH (08:15)
[2020-06-02] MEDS: METHIMAZOLE (5MG) 5 MG TABLET PO SCH (08:19)
[2020-06-02] MEDS: MAGNESIUM OXIDE 400 MG TABLET PO SCH (08:19)
[2020-06-02] MEDS: CLOTRIMAZOLE 1% 15 GM TUBE TP SCH ×2 (08:20→16:21)
[2020-06-02] MEDS: methylPREDNISolone SOD SUCC 40 MG/ML VIAL IV SCH ×2 (11:01→16:21)
[2020-06-02] MEDS: ACETAMINOPHEN 325 MG TABLET PO PRN ×2 (13:18→21:08)
[2020-06-02 13:28] LABS: ABG BASE EXCESS 9.1 mmol/L; ABG OXYGEN SATURATION 91.8 % (92.0-98.5); ABG PCO2 42.3 mmHg (35.0-45.0); ABG PO2 59.2 mmHg (75.0-100.0); AaDO2 177.4 mmHg; COHb 0.3 % (0.5-1.5); MetHb 0.1 % (0.0-1.5); O2Hb 91.4 % (94.0-97.0); PEEP,BG 8 cm H2O; SITE, ABG Left Radial; VT, ABG 450 mL
--- NOTE | 2020-06-02 14:00 | NUR ---
RN NOTES DR HURD AND DR FUNES NOTIFED REGARDING ABG RESULTS , PT TOLERATING FIO2 40% AND PEEP OF 8 WELL AT THIS TIME.
[2020-06-02] MEDS ORDERED: DEXTROSE 50%-WATER 50 ML DISP.SYRIN IV PRN (15:30)
[2020-06-02] MEDS: INSULIN REGULAR, HUMAN 100 UNIT/ML 3 ML VIAL SQ PRN (17:28)
[2020-06-02] MEDS: BLOOD SUGAR DIAGNOSTIC 1 EACH STRIP IN SCH ×2 (17:29→23:54)
--- NOTE | 2020-06-02 18:16 | NUR ---
RN NOTES PT IS OFF DIPRIVAN AT THIS TIME, CALM AND COOPERATIVE, FOLLOWS COMMAND, VSS STABLE, SR ON TELE, MCDONALD DRAINING TO GRAVITY, TOLERATING TF WELL, NO RESIDUAL NOTED,NO SIGNIFICANT CHANGES NOTED ON THIS SHIFT, SR UP x3 CALL LIGHT WITHIN EASY REACH, BED LOCKED AND IN LOWEST POSITION, WILL ENDORSE TO PRESSURE VESSEL INSPECTOR NURSE FOR CONTINUITY OF CARE .
--- NOTE | 2020-06-02 19:30 | NUR ---
CONTRACTS SPECIALIST INITIAL SHIFT NOTES RECEIVED PATIENT IN BED, AWAKE EYES OPEN. PATIENT ALERT, ORALLY INTUBATED ON MECHANICAL VENTILATION, CALM AND COOPERATIVE AT THIS TIME. PLAN OF CARE DISCUSSED WITH THE PATIENT, WHOM NODS YES TO UNDERSTANDING THE PLAN OF CARE. BEDSIDE TELEMETRY MONITORING SHOWS SINUS RHYTHM. OGT PATENT AND INTACT, TUBE FEEDING @ 40 ML/HR, TOLERATING WELL, MINIMAL STRAW COLORED GASTRIC RESIDUALS NOTED. RECTAL TEMP 100.2, WILL INITIATE COOLING MEASURES. LEFT UPPER ARM MIDLINE PATENT AND INTACT, FLUSHED WITH NS, FREE FROM ANY SIGNS AND SYMPTOMS OF INFILTRATION OR PHLEBITIS. ISOLATION PRECAUTIONS FOR COVID-19 OBSERVED. WILL MONITOR THE PATIENT CLOSELY
[2020-06-02] MEDS: IV NS 0.9% 250 ML IV PRN (19:46)
[2020-06-02] MEDS: ATORVASTATIN 10 MG TABLET PO SCH (21:08)
--- NOTE | 2020-06-02 21:10 | NUR ---
SUPERVISOR HOME ENERGY CONSULTANT NOTES PATIENT NOTED WITH FACIAL GRIMACE. WHEN ASKED IF EXPERIENCING PAIN, PATIENT NODS YES IN AGREEMENT. OFFERED PAIN MEDS, PATIENT NODDING YES. TYLENOL ADMINISTERED ORDERED. WILL MONITOR THE PATIENT CLOSELY
[2020-06-03] VITALS (32 sets, daily range): BP systolic 101–149; BP diastolic 49–77
[2020-06-03] MEDS: INSULIN REGULAR, HUMAN 100 UNIT/ML 3 ML VIAL SQ PRN ×5 (00:12→23:30)
--- NOTE | 2020-06-03 04:00 | NUR ---
PUBLIC HEALTH TECHNOLOGIST NOTES SKIN ISSUES PHOTOGRAPHED AND DOCUMENTED PER PROTOCOL.
[2020-06-03] MEDS: GABAPENTIN 100 MG CAPSULE PO SCH ×3 (05:05→21:23)
[2020-06-03] MEDS: BLOOD SUGAR DIAGNOSTIC 1 EACH STRIP IN SCH ×4 (05:06→23:28)
--- NOTE | 2020-06-03 07:20 | NUR ---
RN OPENING NOTE Received patient awake in bed appears calm and relaxed no signs of distress. On ETT 7.04/20 vent settings: AC 22 TV 450 FIO2 40% PEEP +8. Patient is calm and cooperative, follows some commands, spansih speaking. Tele monitor reading shows SR 70s. Has GOT running Glucerna @ 40ml/hr. JUAN midline in place. Has FC draining clear yellow urine. Has bilateral soft wrist restraints. Safety measures reinforced. Call light within reach. Bed locked and on lowest position. Will cont to monitor.
--- NOTE | 2020-06-03 08:30 | NUR ---
INF DR. HURD IF WE SHOULD HOLD LOVENOX DUE TO COUGHING UP BLOOD. AWAITING RESPONSE.
[2020-06-03] MEDS: CYANOCOBALAMIN 500 MCG TABLET PO SCH (08:34)
[2020-06-03] MEDS: FUROSEMIDE 40 MG/4 ML VIAL IV SCH (08:34)
[2020-06-03] MEDS: PANTOPRAZOLE 40 MG VIAL IV SCH (08:34)
[2020-06-03] MEDS: METHIMAZOLE (5MG) 5 MG TABLET PO SCH (08:34)
[2020-06-03] MEDS: SENNOSIDES 8.6 MG TABLET PO SCH ×2 (08:34→17:09)
[2020-06-03] MEDS: methylPREDNISolone SOD SUCC 40 MG/ML VIAL IV SCH ×2 (08:34→17:08)
[2020-06-03] MEDS: MAGNESIUM OXIDE 400 MG TABLET PO SCH (08:34)
[2020-06-03] MEDS: METFORMIN XR 500 MG TAB.SR.24H PO SCH (08:34)
[2020-06-03] MEDS: busPIRone 5 MG TABLET PO SCH ×2 (08:35→17:08)
[2020-06-03] MEDS: CLOTRIMAZOLE 1% 15 GM TUBE TP SCH ×2 (08:35→17:09)
[2020-06-03 09:35] LABS: ABG BASE EXCESS 8.5 mmol/L; ABG OXYGEN SATURATION 90.6 % (92.0-98.5); ABG PCO2 41.3 mmHg (35.0-45.0); ABG PH 7.511 (7.350-7.450); ABG PO2 56.5 mmHg (75.0-100.0); AaDO2 181.2 mmHg; COHb 0.6 % (0.5-1.5); MetHb 0.3 % (0.0-1.5); O2Hb 89.8 % (94.0-97.0); PEEP,BG 8 cm H2O; SITE, ABG Left Radial; VT, ABG 450 mL
--- NOTE | 2020-06-03 09:35 | NUR ---
ABG RESULTS WAS RELAYED TO DR. YANELIS GOULD RT MADE VENT CHANGES FOLLOWS FIO2 50% AND PEEP 10 THE REST THE SAME.
[2020-06-03] MEDS: ENOXAPARIN SODIUM 80 MG/0.8 ML DISP.SYRIN SQ SCH ×2 (11:00→21:00)
--- NOTE | 2020-06-03 11:00 | NUR ---
AUDREY ARAGON PER DR. HILARIO
--- NOTE | 2020-06-03 15:32 | NUR ---
FOLLOWED UP WITH CXR RESULTS
--- NOTE | 2020-06-03 15:33 | NUR ---
SEEN BY DR. HURD THROUGH [facility]. PER PATIENT SHE IS STILL OKAY WITH TREATMENT PLAN (INTUBATION AND VENTILATOR)
[2020-06-03 18:25] LABS: T4 (THYROXINE) 7.5 ug/dL (4.7-13.3)
--- NOTE | 2020-06-03 18:45 | NUR ---
RN CLOSING NOTE Patient in bed no signs of distress. On ETT 7.04/20 vent settings AC 22 TV 450 FIO2 50% and PEEP 10. Tolerating well. Patient is AO x2-3 able to make signs by nodding and shaking head with moments of confusion. Tele monitor reading SR 70-80s. Paul catheter in place drained 1400ml. Kept patient clean and comfortable. Repositioned q2h. Bilateral soft wrist restraints still in place. Checked for circulation all throughout the day. Glucerna 1.2 @ 40ml/hr no residual. All due meds given. Safety measures reinforced. Vital signs maintained within normal limits. Call light within reach. Bed locked and on lowest position. Will endorse to retail shift manager nurse for isabel
--- NOTE | 2020-06-03 19:05 | NUR ---
BILLING AND INSURANCE COORDINATOR NOTE RECEIVED PATIENT IN BED RESTING WITH HOB ELEVATED, NON-VERBAL. ABLE TO NOD HEAD TO YES AND NO QUESTIONS. BREATHING EVEN AND NON-LABORED, NO SOB NOTED. VENT DEPENDANT. ON ISOLATION OF R/O COVID. ON BILATERAL SOFT WRIST RESTRAINTS. IV SITE ON JUAN ML IS CLEAN, DRY, AND PATENT. ON MCDONALD, URINE IS CLEAR AND YELLOW IN COLOR. ON GTF GLUCERNA RUNNING AT 40 ML/HR. RESIDUAL IS < 5 ML. IN NO APPARENT DISTRESS NOTED AT THIS TIME. WILL CONTINUE TO MONITOR.
[2020-06-03] MEDS: ATORVASTATIN 10 MG TABLET PO SCH (21:23)
[2020-06-03] MEDS: GLUCERNA 1.2 1,000 ML BOTTLE GT PRN (21:23)
--- NOTE | 2020-06-03 21:24 | NUR ---
RAMP AGENT NOTE LOVENOX MED HELD DUE TO RED SECRETIONS NOTED UPON SUCTIONING.
[2020-06-04] VITALS (27 sets, daily range): BP systolic 94–137; BP diastolic 50–81
--- NOTE | 2020-06-04 03:30 | NUR ---
RESIDENTIAL LIFE DIRECTOR NOTE PATIENT TOLERATED BED BATH WELL AT THIS TIME. NO BM NOTED. ALL WOUND CARE RENDERED. WILL CONTINUE TO MONITOR.
[2020-06-04] MEDS: GABAPENTIN 100 MG CAPSULE PO SCH ×3 (05:02→21:16)
[2020-06-04] MEDS: BLOOD SUGAR DIAGNOSTIC 1 EACH STRIP IN SCH ×4 (06:05→23:51)
[2020-06-04] MEDS: INSULIN REGULAR, HUMAN 100 UNIT/ML 3 ML VIAL SQ PRN ×3 (06:06→18:16)
--- NOTE | 2020-06-04 06:41 | NUR ---
CHUCKING AND SAWING MACHINE OPERATOR NOTE PATIENT REMAINED STABLE THROUGHOUT THE NIGHT. NO SIGNIFICANT CHANGES NOTED. ALL DUE MEDS GIVEN AND TOLERATED WELL. REPOSITIONED Q2H OR TOLERATED. IN NO APPARENT DISTRESS NOTED AT THIS TIME. WILL ENDORSE TO AM SHIFT RN FOR CONTINUATION OF CARE.
[2020-06-04] MEDS: CYANOCOBALAMIN 500 MCG TABLET PO SCH (08:08)
[2020-06-04] MEDS: METHIMAZOLE (5MG) 5 MG TABLET PO SCH (08:08)
[2020-06-04] MEDS: MAGNESIUM OXIDE 400 MG TABLET PO SCH (08:08)
[2020-06-04] MEDS: methylPREDNISolone SOD SUCC 40 MG/ML VIAL IV SCH ×2 (08:08→16:40)
[2020-06-04] MEDS: PANTOPRAZOLE 40 MG VIAL IV SCH (08:08)
[2020-06-04] MEDS: FUROSEMIDE 40 MG/4 ML VIAL IV SCH (08:08)
[2020-06-04] MEDS: METFORMIN XR 500 MG TAB.SR.24H PO SCH (08:08)
[2020-06-04] MEDS: SENNOSIDES 8.6 MG TABLET PO SCH ×2 (08:09→16:41)
[2020-06-04] MEDS: CLOTRIMAZOLE 1% 15 GM TUBE TP SCH ×2 (08:09→16:41)
[2020-06-04] MEDS: busPIRone 5 MG TABLET PO SCH ×2 (08:09→16:41)
[2020-06-04] MEDS: ENOXAPARIN SODIUM 80 MG/0.8 ML DISP.SYRIN SQ SCH ×2 (08:09→20:56)
[2020-06-04 08:34] LABS: ABG BASE EXCESS 6.7 mmol/L; ABG OXYGEN SATURATION 96.4 % (92.0-98.5); ABG PCO2 38.5 mmHg (35.0-45.0); ABG PH 7.512 (7.350-7.450); AaDO2 232.2 mmHg; COHb 0.2 % (0.5-1.5); MetHb 0.3 % (0.0-1.5); O2Hb 95.9 % (94.0-97.0); SITE, ABG Right Radial; VENT MODE, BG ac22 450 +10 50%
--- NOTE | 2020-06-04 08:41 | NUR ---
RN OPENING NOTES RECEIVED PATIENT RESTING IN BED. NO ACUTE DISTRESS NOTED. ON MECHANICAL VENTILATOR WITH SETTING ORDERED. MO SIGNS OF RESPIRATORY DISTRESS NOTED. SATURATING WELL AT 98%. PATIENT IS A/O X2, WITH PERIODS OF CONFUSION NOTED. SR ON THE MONITOR WITH EPISODES OF SB. MD IS AWARE. PATIENT IS ON BILATERAL WRIST RESTRAINTS, REASSESSED FREQUENTLY AND ALL PATIENT NEEDS ATTENDED. OGT IS INTACT, PATENT, AND FLUSHED WELL. NO RESIDUAL NOTED. GLUCERNA RUNNING AT 40ML/HR. JUAN MIDLINE IS INTACT, PATENT, AND FLUSHED WELL. PER PM NURSE, LOVENOX IS BEING HELD DUE TO BLOOD PRESENT IN THE ETT WHEN SUCTIONING. SAFETY MAINTAINED, CALL LIGHT WITHIN REACH, WILL CONTINUE TO MONITOR CLOSELY.
--- NOTE | 2020-06-04 11:25 | NUR ---
RN NOTE DR HURD HAD AN EXTENSIVE DISCUSSION WITH PATIENT THROUGH FACE TIME REGARDING POSSIBLE TRACH PLACEMENT. PATIENT HAS AGREED TO HAVING A TRACH PLACED. RISKS AND BENEFITS WERE EXPLAINED TO THE PATIENT BY DR HURD AND PATIENT HAS GOOD UNDERSTANDING OF WHAT TO EXPECT. SAFETY MAINTAINED, CALL LIGHT WITHIN REACH, WILL CONTINUE TO MONITOR CLOSELY.
[2020-06-04] MEDS: ACETAMINOPHEN 325 MG TABLET PO PRN (12:25)
--- NOTE | 2020-06-04 16:00 | NUR ---
RN NOTE REPORT GIVEN TO CHRISTIANO GILMORE FOR SIDDHARTHA. NO CHANGES TO PATIENT CONDITION DURING MY SHIFT. ALL PATIENT NEEDS MET. KEPT CLEAN AND DRY. SAFETY MAINTAINED, CALL LIGHT WITHIN REACH, ENDORSED FOR CONTINUITY OF CARE.
[2020-06-04] MEDS: GLUCERNA 1.2 1,000 ML BOTTLE GT PRN (17:12)
[2020-06-04] MEDS ORDERED: MEROPENEM 1 G in IV NS 0.9% 100 ML IV ONE (18:00)
--- NOTE | 2020-06-04 18:00 | NUR ---
ICU/RN BS-171. COVERED WITH 3U OF INSULIN.DUE MEDS ARE GIVEN ORDERED.PT IS AWAKE,ALERT.INTUBATED ON THE VENT AC MODE.SAT O2-100%.V/S STABLE ,AFEBRILE.NO PAIN REPORTED AT THIS TIME.REPOSITION FOR COMFORT.
--- NOTE | 2020-06-04 19:30 | NUR ---
DOCUMENT CONTROL COORDINATOR INITIAL SHIFT NOTES RECEIVED PATIENT IN BED, AWAKE EYES OPEN. PATIENT ALERT, ORALLY INTUBATED ON MECHANICAL VENTILATION, CALM AND COOPERATIVE AT THIS TIME, NO SEDATION REQUIRED. PLAN OF CARE DISCUSSED WITH THE PATIENT, WHOM NODS YES TO UNDERSTANDING THE PLAN OF CARE. BEDSIDE TELEMETRY MONITORING SHOWS SINUS RHYTHM. OGT PATENT AND INTACT, TUBE FEEDING @ 40 ML/HR, TOLERATING WELL, MINIMAL STRAW COLORED GASTRIC RESIDUALS NOTED. LEFT UPPER ARM MIDLINE PATENT AND INTACT, FLUSHED WITH NS, FREE FROM ANY SIGNS AND SYMPTOMS OF INFILTRATION OR PHLEBITIS ISOLATION PRECAUTIONS FOR COVID-19 OBSERVED. WILL MONITOR THE PATIENT CLOSELY
[2020-06-04] MEDS: ATORVASTATIN 10 MG TABLET PO SCH (21:16)
[2020-06-05] VITALS (31 sets, daily range): BP systolic 96–125; BP diastolic 52–65
[2020-06-05] MEDS: INSULIN REGULAR, HUMAN 100 UNIT/ML 3 ML VIAL SQ PRN ×4 (00:18→18:04)
[2020-06-05] MEDS: MEROPENEM 1 G in IV NS 0.9% 100 ML IV SCH ×3 (01:46→18:05)
[2020-06-05] MEDS: GABAPENTIN 100 MG CAPSULE PO SCH ×3 (05:25→21:16)
[2020-06-05] MEDS: BLOOD SUGAR DIAGNOSTIC 1 EACH STRIP IN SCH ×3 (06:04→18:03)
--- NOTE | 2020-06-05 06:30 | NUR ---
PERSONAL LINES ACCOUNT EXECUTIVE NOTES DIPRIVAN TITRATED TO 55MC/KG/MIN. THROUGHOUT SHIFT, DIPRIVAN TITRATED FROM LOW 45MCG/KG/MIN UP TO 60 MCG/KG/MIN TO ACHIEVE PROPER LEVEL OF SEDATION. NO ACUTE EVENTS NOTED THROUGHOUT SHIFT, STILL PENDING TRANSFER TO [facility]. Addendum: 06/05/20 at 0729 by SHANNON KOO RN DISREGARD, WRONG PATIENT
--- NOTE | 2020-06-05 07:15 | NUR ---
RN OPENING NOTE Received patient asleep in bed appears calm and relaxed. On ETT 7.5/23 and vent settings: 16, TV 450, FIO2 50%, PEEP +10 tolerating well no signs of distress. SR 60-70s. On OGT feeding Glucerna @ 1.2 @ 55ml/hr. Has Paul catheter. Bilateral wrist soft restraints in place. JUAN midline dressing intact. Safety measures reinforced. Call light within reach. Bed locked and on lowest position. Will cont to monitor.
[2020-06-05] MEDS: PANTOPRAZOLE 40 MG VIAL IV SCH (08:07)
[2020-06-05] MEDS: MAGNESIUM OXIDE 400 MG TABLET PO SCH (08:18)
[2020-06-05] MEDS: methylPREDNISolone SOD SUCC 40 MG/ML VIAL IV SCH ×2 (08:18→16:04)
[2020-06-05] MEDS: METFORMIN XR 500 MG TAB.SR.24H PO SCH (08:18)
[2020-06-05] MEDS: FUROSEMIDE 40 MG/4 ML VIAL IV SCH (08:18)
[2020-06-05] MEDS: SENNOSIDES 8.6 MG TABLET PO SCH ×2 (08:18→16:04)
[2020-06-05] MEDS: busPIRone 5 MG TABLET PO SCH ×2 (08:18→16:04)
[2020-06-05] MEDS: CYANOCOBALAMIN 500 MCG TABLET PO SCH (08:19)
[2020-06-05] MEDS: ENOXAPARIN SODIUM 80 MG/0.8 ML DISP.SYRIN SQ SCH ×2 (08:20→21:19)
[2020-06-05] MEDS: METHIMAZOLE (5MG) 5 MG TABLET PO SCH (08:20)
[2020-06-05] MEDS: CLOTRIMAZOLE 1% 15 GM TUBE TP SCH ×2 (08:21→16:04)
--- NOTE | 2020-06-05 08:23 | NUR ---
OK TO GIVE LOVENOX PER DR HILARIO. WHEN PT WAS SUCTIONED - BROWN. OLD BLOOD.
[2020-06-05 08:25] LABS: ABG BASE EXCESS 9.8 mmol/L; ABG OXYGEN SATURATION 97.7 % (92.0-98.5); ABG PCO2 50.2 mmHg (35.0-45.0); ABG PH 7.461 (7.350-7.450); ABG PO2 103.9 mmHg (75.0-100.0); AaDO2 196.1 mmHg; COHb 0.3 % (0.5-1.5); MetHb 0.4 % (0.0-1.5); PEEP,BG 10 cm H2O; SITE, ABG Right Radial; VT, ABG 450 mL
--- NOTE | 2020-06-05 08:38 | NUR ---
vent changes below per dr. ny: PEEP +8 Addendum: 06/05/20 at 0839 by DELON PEARSON RT Amended: Links added.
--- NOTE | 2020-06-05 10:00 | NUR ---
SEEN BY DR HURD. GAVE STATUS REPORT. WITH NNO.
[2020-06-05] MEDS: GLUCERNA 1.2 1,000 ML BOTTLE GT PRN (16:05)
--- NOTE | 2020-06-05 18:44 | NUR ---
RN CLOSING NOTE Patient in bed resting. No signs of distress. Still on vent. PEEP changed from 10 to 8 tolerating well. Tele monitor reading SR 60-70s. On OGT positive placement auscultated. GT feeding running Glucerna 1.2 @ 55ml/hr tolerating well. Paul catheter drained 1750ml. Bilateral soft wrist restraints in place. JUAN Midline in place and patent dressing intact. All due meds given. Cont on ATB therapy no signs of adverse reaction to medication. Safety measures reinforced. Call light within reach. Bed locked and on lowest setting. Side rails up x2. Will endorse to nightclub manager nurse for isabel.
--- NOTE | 2020-06-05 19:22 | NUR ---
NEUROCRITICAL CARE PHYSICIAN NOTE PATIENT IN BED RESTING WITH HOB ELEVATED, NON-VERBAL BUT ABLE TO NOD HER HEAD TO YES AND NO QUESTIONS. NO SOB NOTED. VENT DEPENDANT. ON BILATERAL SOFT WRIST RESTRAINTS. ON F/C, URINE IS CLEAR AND YELLOW. ON GTF GLUCERNA, MICHAEL WELL. RESIDUAL IS < 5 ML. IV SITE ON JUAN ML IS CLEAN, DRY, AND PATENT, FLUSHES WELL. IN NO APPARENT DISTRESS NOTED AT THIS TIME. WILL CONTINUE TO MONITOR
[2020-06-05] MEDS: ATORVASTATIN 10 MG TABLET PO SCH (21:17)
[2020-06-06] VITALS (25 sets, daily range): BP systolic 97–131; BP diastolic 52–77
[2020-06-06] MEDS: BLOOD SUGAR DIAGNOSTIC 1 EACH STRIP IN SCH ×4 (00:10→17:49)
[2020-06-06] MEDS: INSULIN REGULAR, HUMAN 100 UNIT/ML 3 ML VIAL SQ PRN ×3 (00:11→17:51)
[2020-06-06] MEDS: MEROPENEM 1 G in IV NS 0.9% 100 ML IV SCH ×3 (01:12→17:54)
[2020-06-06] MEDS: GABAPENTIN 100 MG CAPSULE PO SCH ×3 (05:37→21:21)
--- NOTE | 2020-06-06 07:20 | NUR ---
RN OPENING NOTE Received patient asleep in bed appears calm and relaxed. On ETT 7.5/ and vent settings: 16, TV 450, FIO2 50%, PEEP 8 tolerating well no signs of distress. SR 60-70s. On OGT feeding Glucerna @ 1.2 @ 55ml/hr. Has Paul catheter. Bilateral wrist soft restraints in place. JUAN midline dressing intact. Safety measures reinforced. Call light within reach. Bed locked and on lowest position. Will cont to monitor.
[2020-06-06] MEDS: PANTOPRAZOLE 40 MG VIAL IV SCH (07:47)
[2020-06-06 07:56] LABS: ABG BASE EXCESS 6.2 mmol/L; ABG OXYGEN SATURATION 98.2 % (92.0-98.5); ABG PCO2 40.3 mmHg (35.0-45.0); ABG PO2 109.4 mmHg (75.0-100.0); AaDO2 201.8 mmHg; COHb 0.4 % (0.5-1.5); MetHb 0.2 % (0.0-1.5); O2Hb 97.6 % (94.0-97.0); PEEP,BG 8 cm H2O; SITE, ABG Right Radial; VT, ABG 450 mL
[2020-06-06] MEDS: FUROSEMIDE 40 MG/4 ML VIAL IV SCH (08:14)
[2020-06-06] MEDS: methylPREDNISolone SOD SUCC 40 MG/ML VIAL IV SCH ×2 (08:14→17:11)
[2020-06-06] MEDS: ENOXAPARIN SODIUM 80 MG/0.8 ML DISP.SYRIN SQ SCH ×2 (08:15→21:22)
[2020-06-06] MEDS: METHIMAZOLE (5MG) 5 MG TABLET PO SCH (08:16)
[2020-06-06] MEDS: MAGNESIUM OXIDE 400 MG TABLET PO SCH (08:16)
[2020-06-06] MEDS: busPIRone 5 MG TABLET PO SCH ×2 (08:16→17:11)
[2020-06-06] MEDS: SENNOSIDES 8.6 MG TABLET PO SCH ×2 (08:16→17:11)
[2020-06-06] MEDS: CYANOCOBALAMIN 500 MCG TABLET PO SCH (08:16)
[2020-06-06] MEDS: METFORMIN XR 500 MG TAB.SR.24H PO SCH (08:16)
[2020-06-06] MEDS: CLOTRIMAZOLE 1% 15 GM TUBE TP SCH ×2 (08:17→17:11)
--- NOTE | 2020-06-06 09:21 | NUR ---
vent changes below per dr. ny for weaning trial: SIMV 4 PS 15 FIO2 50% PEEP 6. Addendum: 06/06/20 at 09 by DELON PEARSON RT Amended: Links added.
[2020-06-06 10:32] LABS: ABG BASE EXCESS 7.6 mmol/L; ABG PCO2 45.3 mmHg (35.0-45.0); AaDO2 216.5 mmHg; COHb 0.2 % (0.5-1.5); MetHb 0.1 % (0.0-1.5); O2Hb 96.7 % (94.0-97.0); PEEP,BG 6 cm H2O; SITE, ABG Right Radial; VT, ABG 450 mL
[2020-06-06] MEDS: GLUCERNA 1.2 1,000 ML BOTTLE GT PRN (11:55)
--- NOTE | 2020-06-06 15:00 | NUR ---
[facility]
--- NOTE | 2020-06-06 18:43 | NUR ---
RN CLOSING NOTE Patient in bed no signs of distress. Tele reading SR 60s. OGT in place checked for placement. Running Glucerna 1.2 @ 55cc/hr tolerating well. FC in place drained total 1400ml. Repositioned q2h kept clean and dry. All due meds given. Vital signs kept within normal limits. JUAN midline flushed well. Safety measures reinforced. Bed locked and on lowest position. Side rails up x2. Will endorse to assistant shift supervisor nurse for isabel.
--- NOTE | 2020-06-06 19:16 | NUR ---
TIME STUDY ANALYST NOTE PATIENT IN BED RESTING WITH HOB ELEVATED, NON-VERBAL BUT ABLE TO MAKE NEEDS KNOWN WITH POINTING, NODDING HEAD TO YES AND NO QUESTIONS. BREATHING EVEN AND NON-LABORED, NO SOB NOTED. VENT DEPENDANT. ON BILATERAL SOFT WRIST RESTRAINTS. IV SITE ON JUAN ML IS CLEAN, DRY, AND PATENT, FLUSHES WELL. ON F/C, URINE IS CLEAR AND YELLOW. ON GTF GLUCERNA, MICHAEL WELL. RESIDUAL IS < 5 ML. IN NO APPARENT DISTRESS NOTED AT THIS TIME. WILL CONTINUE TO MONITOR
--- NOTE | 2020-06-06 20:11 | NUR ---
RT NOTE PT RECEIVED INTUBATED WITH 7.5 ET TUBE @ 23 CM. PT AWAKE/ALERT. CUFF CHECKED VIA DIETITIAN CHIEF. AMBU BAG/BACK UP TRACH @ BEDSIDE. SX DONE, ET TUBE SECURED AND PATENT. VENT PLUGGED TO RED OUTLET. ALARMS ON AND AUDIBLE. NO DISTRESS NOTED AT THIS TIME. PT TOLERATING SIMV SETTINGS WELL. WILL CONTINUE TO MONITOR T/O SHIFT. Addendum: 06/06/20 at 2011 by ALENA INFANTE RT Amended: Links added.
[2020-06-06] MEDS: HYDROMORPHONE 1 MG/1 ML DISP.SYRIN IV PRN (21:21)
[2020-06-06] MEDS: ATORVASTATIN 10 MG TABLET PO SCH (21:21)
[2020-06-07] VITALS (37 sets, daily range): BP systolic 83–131; BP diastolic 48–74
[2020-06-07] MEDS: BLOOD SUGAR DIAGNOSTIC 1 EACH STRIP IN SCH ×5 (00:09→23:35)
[2020-06-07] MEDS: INSULIN REGULAR, HUMAN 100 UNIT/ML 3 ML VIAL SQ PRN ×2 (00:10→17:36)
[2020-06-07] MEDS: MEROPENEM 1 G in IV NS 0.9% 100 ML IV SCH ×3 (02:11→17:02)
[2020-06-07 04:14] LABS: HEMATOCRIT 34 % (33-45); HEMOGLOBIN 10.8 g/dL (11.5-14.8); LYMPHOCYTES # (AUTO) 1.4 /CMM (0.8-4.8); LYMPHOCYTES % (AUTO) 8.8 % (20.0-44.0); MEAN CORPUSCULAR HGB CONC 32 g/dl (31.0-36.0); MEAN CORPUSCULAR VOLUME 87 fL (82-100); MONOCYTES # (AUTO) 0.5 /CMM (0.1-1.30); MONOCYTES % (AUTO) 3.3 % (2.0-12.0); NEUTROPHILS % (AUTO) 87.9 % (43.0-81.0); PLATELET COUNT (AUTO) 252 /CMM (150-450); RED BLOOD CELL COUNT(AUTO) 3.88 MIL/uL (4.0-5.2)
[2020-06-07] MEDS: GABAPENTIN 100 MG CAPSULE PO SCH ×4 (04:37→21:15)
[2020-06-07] MEDS: HYDROMORPHONE 1 MG/1 ML DISP.SYRIN IV PRN (05:42)
--- NOTE | 2020-06-07 07:40 | NUR ---
ICU/RN PT IS INTUBATED ON THE VENT SIMV MODE.SAT O2-100%.V/S STABLE,AFEBRILE.NO PAIN REPORTED AT THIS TIME. AWAKE,ALERT..OG TUBE INFUSING WITH GLUCERNA AT 55 ML/HR.NO RESIDUAL.LEFT UPPER ARM MID LINE.BILATERAL SOFT WRIST RESTRAINS ON.F/C IN PLACE.DRAINING WITH YELLOW URINE.SACRAL WOUND COVERED WITH MEPILEX. SUCTION PROVIDED.REPOSITION FOR COMFORT.
[2020-06-07 08:54] LABS: ABG BASE EXCESS 8.7 mmol/L; ABG OXYGEN SATURATION 96.7 % (92.0-98.5); ABG PCO2 48.8 mmHg (35.0-45.0); ABG PH 7.458 (7.350-7.450); ABG PO2 89.2 mmHg (75.0-100.0); AaDO2 139.9 mmHg; COHb 0.1 % (0.5-1.5); MetHb 0.3 % (0.0-1.5); O2Hb 96.3 % (94.0-97.0); SITE, ABG Right Radial; VENT MODE, BG simv 4 psv 15 40% +6
[2020-06-07] MEDS: ENOXAPARIN SODIUM 80 MG/0.8 ML DISP.SYRIN SQ SCH ×2 (09:51→21:16)
[2020-06-07] MEDS: METFORMIN XR 500 MG TAB.SR.24H PO SCH (09:52)
[2020-06-07] MEDS: FUROSEMIDE 40 MG/4 ML VIAL IV SCH (09:52)
[2020-06-07] MEDS: MAGNESIUM OXIDE 400 MG TABLET PO SCH (09:52)
[2020-06-07] MEDS: SENNOSIDES 8.6 MG TABLET PO SCH ×2 (09:52→16:17)
[2020-06-07] MEDS: PANTOPRAZOLE 40 MG VIAL IV SCH (09:52)
[2020-06-07] MEDS: CYANOCOBALAMIN 500 MCG TABLET PO SCH (09:52)
[2020-06-07] MEDS: busPIRone 5 MG TABLET PO SCH ×2 (09:52→16:17)
[2020-06-07] MEDS: METHIMAZOLE (5MG) 5 MG TABLET PO SCH (09:52)
[2020-06-07] MEDS: methylPREDNISolone SOD SUCC 40 MG/ML VIAL IV SCH ×2 (09:52→13:00)
[2020-06-07] MEDS: CLOTRIMAZOLE 1% 15 GM TUBE TP SCH ×2 (09:53→16:17)
--- NOTE | 2020-06-07 10:00 | NUR ---
ICU/RN DUE MEDS ARE GIVEN ORDERED.
[2020-06-07] MEDS ORDERED: DC PROPOFOL WHEN EXTUBATED XX PRN (11:30)
--- NOTE | 2020-06-07 11:30 | NUR ---
ICU/RN PT IS EXTUBATED.PLACED ON 6 L N/C.SAT O2-100%.V/S STABLE AFEBRILE..BS-122.PT IS AWAKE,ALERT.UNDERSTAND DISEASE PROCESS. ORAL CARE DONE.RESTRAINS REMOVED.REPOSITION FOR COMFORT.CONTINUE MONITORING.
[2020-06-07] MEDS: IV NS 0.9% 250 ML IV PRN (16:26)
--- NOTE | 2020-06-07 16:35 | NUR ---
ICU/RN PM CARE PROVIDED. WOUND DRESSING DONE ORDERED.DUE MEDS ARE GIVEN ORDERED.PT PASS SWALLOW EVAL.OK TO GIVE PURRED FOOD AND LIQUIDS WITH THICKENER. CRUSH MEDS AND GIVE WITH APPLE SAUCE.
--- NOTE | 2020-06-07 19:15 | NUR ---
CATH LAB TECH NOTE RECEIVED PATIENT IN BED RESTING WITH HOB ELEVATED, WATCHING TV. A&O X3. BREATHING IS EVEN AND NON LABORED, NO SOB NOTED AT THIS TIME. ON ISOLATION FOR COVID POSITIVE X2. ABLE TO MAKE NEEDS KNOWN. ABLE TO SPEAK IN THAI AND M[place]QUE. PER AM SHIFT RN, PATIENT WAS EXTUBATED TODAY. PATIENT ON O2 4L VIA NC AND TOLERATING WELL. IV SITE ON JUAN ML IS CLEAN DRY, AND PATENT. PATIENT ON MCDONALD CATH, URINE IS CLOUDY AND YELLOW IN COLOR. IN NO APPARENT DISTRESS NOTED AT THIS TIME. CALL LIGHT IS WITHIN EASY REACH. WILL CONTINUE TO MONITOR.
[2020-06-07] MEDS: ATORVASTATIN 10 MG TABLET PO SCH (21:15)
[2020-06-08] VITALS (31 sets, daily range): BP systolic 92–138; BP diastolic 52–76
--- NOTE | 2020-06-08 00:05 | NUR ---
INSULATION MANAGER NOTE NOTED PATIENT WITH LARGE AMOUNT OF BM AROUND THIS TIME. BED BATH PROVIDED AND TOLERATED WELL. ALL WOUND CARE RENDERED. WILL CONTINUE TO MONITOR.
[2020-06-08] MEDS: MEROPENEM 1 G in IV NS 0.9% 100 ML IV SCH ×3 (01:16→17:12)
[2020-06-08] MEDS: HYDROMORPHONE 1 MG/1 ML DISP.SYRIN IV PRN (01:42)
[2020-06-08] MEDS: IV NS 0.9% 250 ML IV PRN (04:00)
[2020-06-08] MEDS: GABAPENTIN 100 MG CAPSULE PO SCH ×3 (04:32→20:03)
[2020-06-08 04:49] LABS: CALCIUM, SERUM 9.2 mg/dL (8.5-10.1); CREATININE 0.6 mg/dL (0.6-1.3); MAGNESIUM 2.3 mg/dL (1.8-2.4); POTASSIUM 4.2 mmol/L (3.5-5.1)
[2020-06-08 04:52] LABS: BASOPHILS # (AUTO) 0.1 /CMM (0.0-0.2); BASOPHILS % (AUTO) 0.6 % (0.0-2.0); HEMATOCRIT 35 % (33-45); HEMOGLOBIN 11.1 g/dL (11.5-14.8); LYMPHOCYTES # (AUTO) 1.8 /CMM (0.8-4.8); LYMPHOCYTES % (AUTO) 12.1 % (20.0-44.0); MEAN CORPUSCULAR HGB CONC 32 g/dl (31.0-36.0); MEAN CORPUSCULAR VOLUME 87 fL (82-100); MONOCYTES # (AUTO) 0.4 /CMM (0.1-1.30); MONOCYTES % (AUTO) 2.8 % (2.0-12.0); NEUTROPHILS # (AUTO) 11.8 /CMM (1.8-8.9); NEUTROPHILS % (AUTO) 81.5 % (43.0-81.0); PLATELET COUNT (AUTO) 284 /CMM (150-450); RED BLOOD CELL COUNT(AUTO) 3.99 MIL/uL (4.0-5.2); WHITE BLOOD COUNT (AUTO) 14.5 K/uL (4.3-11.0)
[2020-06-08] MEDS: BLOOD SUGAR DIAGNOSTIC 1 EACH STRIP IN SCH ×6 (06:04→21:25)
--- NOTE | 2020-06-08 06:55 | NUR ---
MANAGER INTELLIGENCE NOTE PATIENT REMAINED STABLE THROUGHOUT THE NIGHT. NO SIGNIFICANT CHANGES NOTED. PATIENT IS KEPT CLEAN, DRY, AND COMFORTABLE. ALL DUE MEDS GIVEN ORDERED. ALL NEEDS ATTENDED AND MET. WILL ENDORSE TO AM SHIFT RN FOR CONTINUATION OF CARE.
[2020-06-08] MEDS: PANTOPRAZOLE 40 MG VIAL IV SCH (08:00)
[2020-06-08] MEDS: FUROSEMIDE 40 MG/4 ML VIAL IV SCH (08:01)
[2020-06-08] MEDS: methylPREDNISolone SOD SUCC 40 MG/ML VIAL IV SCH ×2 (08:01→16:18)
[2020-06-08] MEDS: SENNOSIDES 8.6 MG TABLET PO SCH ×2 (08:02→16:18)
[2020-06-08] MEDS: busPIRone 5 MG TABLET PO SCH ×2 (08:02→16:19)
[2020-06-08] MEDS: ENOXAPARIN SODIUM 80 MG/0.8 ML DISP.SYRIN SQ SCH ×2 (08:02→20:04)
[2020-06-08] MEDS: METFORMIN XR 500 MG TAB.SR.24H PO SCH (08:03)
[2020-06-08] MEDS: MAGNESIUM OXIDE 400 MG TABLET PO SCH (08:03)
[2020-06-08] MEDS: METHIMAZOLE (5MG) 5 MG TABLET PO SCH (08:03)
[2020-06-08] MEDS: CYANOCOBALAMIN 500 MCG TABLET PO SCH (08:03)
[2020-06-08] MEDS: CLOTRIMAZOLE 1% 15 GM TUBE TP SCH ×2 (08:49→16:19)
[2020-06-08] MEDS ORDERED: ONDANSETRON HCL/PF 4 MG/2 ML VIAL IV PRN (10:00)
[2020-06-08] MEDS: GUAIFENESIN/D-METHORPHAN HB 5 ML UDC PO PRN (12:48)
[2020-06-08] MEDS ORDERED: IOHEXOL-350 100 ML VIAL IV ONE (13:27)
[2020-06-08] MEDS ORDERED: IV NS 0.9% 250 ML IV ONE (13:27)
[2020-06-08] MEDS ORDERED: CT SWABBABLE VALVE TRANS SET 1 EA INFUS.SET MC ONE (13:27)
[2020-06-08] MEDS ORDERED: INSULIN REGULAR, HUMAN 100 UNIT/ML 3 ML VIAL SQ PRN (17:00)
[2020-06-08] MEDS ORDERED: DEXTROSE 50%-WATER 50 ML DISP.SYRIN IV PRN (17:00)
[2020-06-08] MEDS: INSULIN REGULAR, HUMAN 100 UNIT/ML 3 ML VIAL SQ PRN ×2 (17:35→22:07)
--- NOTE | 2020-06-08 17:54 | NUR ---
ICU/RN NOTE Pt was received on 5 LPM/NC tolerating well, awake and oriented to self and place only. Refused to eat lunch and dinner, probably 10% only. Went to CT for pulm angio via bed. Complained of nausea earlier and was given Zofran as ordered. Still did not eat afterwards. Had a big BM today, Beverly discontinued as ordered. Will be down graded today to YASHIRA, will give report to YASHIRA RN
--- NOTE | 2020-06-08 19:40 | NUR ---
RN OPENING NOTE RECEIVED PT IN BED RESTING COMFORTABLY. AO X 2-3, SETSWANA PRIMARY LANGUAGE, BUT ABLE TO COMMUNICATE IN IRISH. PATIENT IN NO S/SX OF ACUTE DISTRESS AT THIS TIME. PATIENT'S BREATHING IS EVEN AND UNLABORED. PATIENT IS ON 5 L OF OXYGEN VIA NC; TOLERATING WELL. SATURATING >95%, PATIENT ON TELE MONITOR READING SR, HR IS @80'S. NOTED IV SITE ON JUAN G18; PATENT AND FLUSHING WELL,NO S/S OF INFECTION OR INFILTRATION. MCDONALD CATH CONNECTED TO URINE BAG IN PLACE, DRAINING A CLEAR YELLOWISH URINE. SAFETY MEASURES IMPLEMENTED PER PROTOCOL. PATIENT BED ALARM IS ON. HEAD OF BED ELEVATED. BED IS LOCKED, IN LOWEST POSITION AND SIDE RAILS UP. CALL LIGHT WITHIN REACH OF THE PATIENT. WILL CONTINUE TO MONITOR AND REASSESS FOR ANY CHANGES.
--- NOTE | 2020-06-08 20:00 | NUR ---
RN NOTE MCDONALD CATHETER REMOVED ASEPTICALLY ORDERED, TOLERATED THE PROCEDURE WELL. NO SIGN OF INFECTION NOTED. WILL CONTINUE TO MONITOR.
--- NOTE | 2020-06-08 21:00 | NUR ---
RN NOTE PATIENT COMPLAINS OF HEAD ACHE AT 02/05. PRN TYLENOL 650 MG GIVEN ORDERED. WILL CONTINUE TO REASSESS
[2020-06-08] MEDS: ACETAMINOPHEN 325 MG TABLET PO PRN (21:22)
[2020-06-08] MEDS: ATORVASTATIN 10 MG TABLET PO SCH (21:26)
[2020-06-09] VITALS: BP 120/59
--- NOTE | 2020-06-09 | NUR ---
RN NOTE REASSESSED PATIENT'S PAIN LEVEL, PATIENT EXHIBITS FACIAL GRIMACING AND INTERMITTENT SLEEP DUE TO PAIN. STATED SHE IS STILL IN SO MUCH PAIN, AND FEELS PAIN GENERALIZED. PRN DILAUDID 0.5 MG GIVEN ORDERED. WILL CONTINUE TO MONITOR AND REASSESS
[2020-06-09] MEDS: HYDROMORPHONE 1 MG/1 ML DISP.SYRIN IV PRN (00:01)
[2020-06-09] MEDS ORDERED: MEROPENEM 1 G VIAL IV ONE (02:03)
[2020-06-09] MEDS: MEROPENEM 1 G in IV NS 0.9% 100 ML IV SCH ×3 (02:10→17:35)
[2020-06-09 04:00] VITALS: BP 103/62
[2020-06-09] MEDS: GABAPENTIN 100 MG CAPSULE PO SCH ×4 (04:51→20:59)
[2020-06-09] MEDS: PANTOPRAZOLE 40 MG VIAL IV SCH (07:42)
[2020-06-09] MEDS: BLOOD SUGAR DIAGNOSTIC 1 EACH STRIP IN SCH ×4 (07:42→21:51)
--- NOTE | 2020-06-09 07:57 | NUR ---
RN CLOSING NOTE PATIENT REMAINS IN ROOM. NO SIGNS OF ACUTE DISTRESS NOTED. SAFETY MEASURES IMPLEMENTED, BED IN LOWEST POSITION, LOCKED, SIDE RAILS UP, CALL LIGHT WITHIN REACH. ENDORSED TO ONCOMING SHIFT RN FOR CONTINUITY OF CARE.
[2020-06-09 08:00] VITALS: BP 114/54
[2020-06-09] MEDS: ENOXAPARIN SODIUM 80 MG/0.8 ML DISP.SYRIN SQ SCH (08:37)
[2020-06-09] MEDS: METHIMAZOLE (5MG) 5 MG TABLET PO SCH (08:37)
[2020-06-09] MEDS: methylPREDNISolone SOD SUCC 40 MG/ML VIAL IV SCH ×2 (08:37→17:34)
[2020-06-09] MEDS: MAGNESIUM OXIDE 400 MG TABLET PO SCH (08:37)
[2020-06-09] MEDS: busPIRone 5 MG TABLET PO SCH ×2 (08:37→17:35)
[2020-06-09] MEDS: GUAIFENESIN/D-METHORPHAN HB 5 ML UDC PO PRN ×3 (08:37→21:23)
[2020-06-09] MEDS: FUROSEMIDE 40 MG/4 ML VIAL IV SCH (08:37)
[2020-06-09] MEDS: CYANOCOBALAMIN 500 MCG TABLET PO SCH (08:38)
[2020-06-09] MEDS: METFORMIN XR 500 MG TAB.SR.24H PO SCH (08:38)
[2020-06-09] MEDS: CLOTRIMAZOLE 1% 15 GM TUBE TP SCH ×2 (08:38→17:34)
[2020-06-09] MEDS: ACETAMINOPHEN 325 MG TABLET PO PRN (08:38)
[2020-06-09] MEDS: SENNOSIDES 8.6 MG TABLET PO SCH ×2 (08:38→17:35)
[2020-06-09 12:00] VITALS: BP 124/68
[2020-06-09 16:00] VITALS: BP 130/72
[2020-06-09] MEDS: INSULIN REGULAR, HUMAN 100 UNIT/ML 3 ML VIAL SQ PRN ×2 (17:54→21:52)
--- NOTE | 2020-06-09 19:30 | NUR ---
RN OPENING NOTES, RECEIVED PATIENT IN BED, AO X 2-3, LAO SPEAKING, MOUTH WORDS, PATIENT NOTED WITH EPISODE OF DESATURATION AND ACCUMULATION OF SECRETIONS, PATIENT IS ON 5 L OF OXYGEN VIA NC; TOLERATING WELL. SATURATING HIGH 80S, PLACED PATIENT IN SIMPLE MASK AT 6LPM, WITH IMPROVING O2 SAT LEVEL TO >95%, NSR ON TELE MONITOR READING SR, HR IS @80'S AT THIS TIME. NOTED IV SITE ON JUAN G18, PATENT AND INTACT, SAFETY MEASURES IMPLEMENTED, ALL NEEDS PROVIDED, ISOLATION PRECAUTIONS IN PLACED FRO [id number], BED ALARM ON, HEAD OF BED ELEVATED, BED LOCKED AND LOWEST POSITION, 2 1/2 BILATERAL RAILS UP, CALL LIGHT WITHIN REACH, WILL CONTINUE TO MONITOR CLOSELY.
[2020-06-09 20:00] VITALS: BP 100/63
[2020-06-09] MEDS: ATORVASTATIN 10 MG TABLET PO SCH (21:53)
[2020-06-10] VITALS (8 sets, daily range): BP systolic 94–118; BP diastolic 46–70
[2020-06-10] MEDS: MEROPENEM 1 G in IV NS 0.9% 100 ML IV SCH ×3 (01:31→17:09)
[2020-06-10] MEDS: GABAPENTIN 100 MG CAPSULE PO SCH ×3 (04:20→21:26)
--- NOTE | 2020-06-10 06:40 | NUR ---
COMPOSITION WORKER NOTES, PATIENT IN ASLEEP AT THIS TIME, BUT AROUSES EASILY TO VERBAL STIMULI, IS ON 6 L OF OXYGEN VIA SIMPLE MASK AT 6LPM, ATTEMPT TO PLACE PATIENT IN NC 5L AND DESAT TO 86-88%, CONT ON SIMPLE MASK, O2 >96%SAT LEV NSR, ALL NEEDS PROVIDED, ISOLATION PRECAUTIONS IN PLACED, BED ALARM ON, HEAD OF BED ELEVATED, BED LOCKED AND LOWEST POSITION, 2 1/2 BILATERAL RAILS UP, CALL LIGHT WITHIN REACH, WILL ENDORSE CONTINUITY OF CARE TO ONCOMING NURSE.
--- NOTE | 2020-06-10 07:30 | NUR ---
RECEIVED PATIENT IN BED. NO ACUTE DISTRESS NOTED. PATIENT ALERT & ORIENTED X2. PATIENT ON 5L OXYGEN VIA MASK, SATURATING WELL AT 99-100%. PATIENT ON THERMAL MOLDER, SINUS RHYTHM NOTED, WITH HEART RATE IN 70S. PATIENT LEFT UPPER ARM MIDLINE INTACT, PATENT, FLUSHED WELL. PATIENT SAFETY MAINTAINED. CALL LIGHT WITHIN REACH. WILL CONTINUE TO MONITOR.
[2020-06-10] MEDS: BLOOD SUGAR DIAGNOSTIC 1 EACH STRIP IN SCH ×4 (08:08→22:06)
[2020-06-10] MEDS: PANTOPRAZOLE 40 MG VIAL IV SCH (08:08)
[2020-06-10] MEDS: SENNOSIDES 8.6 MG TABLET PO SCH ×2 (08:45→17:08)
[2020-06-10] MEDS: FUROSEMIDE 40 MG/4 ML VIAL IV SCH (08:45)
[2020-06-10] MEDS: methylPREDNISolone SOD SUCC 40 MG/ML VIAL IV SCH ×2 (08:45→16:37)
[2020-06-10] MEDS: MAGNESIUM OXIDE 400 MG TABLET PO SCH (08:46)
[2020-06-10] MEDS: CYANOCOBALAMIN 500 MCG TABLET PO SCH (08:46)
[2020-06-10] MEDS: busPIRone 5 MG TABLET PO SCH ×2 (08:46→17:09)
[2020-06-10] MEDS: METHIMAZOLE (5MG) 5 MG TABLET PO SCH (08:46)
[2020-06-10] MEDS: METFORMIN XR 500 MG TAB.SR.24H PO SCH (08:48)
[2020-06-10] MEDS: CLOTRIMAZOLE 1% 15 GM TUBE TP SCH ×2 (08:52→17:09)
[2020-06-10] MEDS: ENOXAPARIN SODIUM 40 MG/0.4 ML DISP.SYRIN SQ SCH (08:52)
[2020-06-10] MEDS: GUAIFENESIN/D-METHORPHAN HB 5 ML UDC PO PRN ×3 (10:32→21:34)
[2020-06-10] MEDS: INSULIN REGULAR, HUMAN 100 UNIT/ML 3 ML VIAL SQ PRN ×3 (12:12→22:09)
[2020-06-10] MEDS: TRAMADOL HCL 50 MG TABLET PO PRN ×2 (15:12→23:08)
--- NOTE | 2020-06-10 18:20 | NUR ---
PATIENT IN BED. NO ACUTE DISTRESS NOTED. PATIENT ALERT & ORIENTED X2. PATIENT ON 5L OXYGEN VIA MASK, SATURATING WELL AT 99-100%. PATIENT ON HEALTHCARE FACILITY ADMINISTRATOR, SINUS RHYTHM NOTED, WITH HEART RATE IN 80S. PATIENT LEFT UPPER ARM MIDLINE INTACT, PATENT, FLUSHED WELL. PATIENT SAFETY MAINTAINED. CALL LIGHT WITHIN REACH. WILL ENDORSE PLAN OF CARE TO ONCOMING NURSE FOR CONTINUITY OF CARE
--- NOTE | 2020-06-10 19:30 | NUR ---
SUPERVISOR POST WAVE NOTES, RECEIVED PATIENT IN BED, AO X 2-3, BELARUSIAN SPEAKING, MOUTH WORDS, PATIENT CONT ON SIMPLE MASK AT 6LPM, WITH O2 SAT LEVEL 92-96%, NSR ON TELE MONITOR READING WITH HR AT 80'S AT THIS TIME, MIDLINE ON JUAN G18, PATENT AND INTACT, SAFETY MEASURES IMPLEMENTED, ALL NEEDS PROVIDED, ISOLATION PRECAUTIONS IN PLACED FRO COVID 19, AWAITING FOR THE SECOND SWAB RESULTS FOR COVID, BED ALARM ON, HEAD OF BED ELEVATED, BED LOCKED AND LOWEST POSITION, 2 1/2 BILATERAL RAILS UP, CALL LIGHT WITHIN REACH, WILL CONTINUE TO MONITOR CLOSELY.
[2020-06-10] MEDS: ATORVASTATIN 10 MG TABLET PO SCH (21:26)
--- NOTE | 2020-06-10 23:50 | NUR ---
RN NOTE: RECEIVED REPORT FROM ALIRIO GILMORE FOR CONTINUITY OF CARE.
--- NOTE | 2020-06-10 23:50 | NUR ---
STUDENT SERVICES VICE PRESIDENT NOTES, ENDORSED PATIENT TO DEIRDRE FRIEDMAN FOR CONTINUATION OF CARE, PATIENT CONT ON SIMPLE MASK AT 6LPM NO SOB/ACUTE DISTRESS NOTED.
[2020-06-11] VITALS (7 sets, daily range): BP systolic 100–136; BP diastolic 56–77
[2020-06-11] MEDS: MEROPENEM 1 G in IV NS 0.9% 100 ML IV SCH ×3 (01:39→17:33)
[2020-06-11] MEDS: GABAPENTIN 100 MG CAPSULE PO SCH ×3 (05:01→21:09)
--- NOTE | 2020-06-11 06:57 | NUR ---
RN NOTE: PATIENT IN BED, REMAINS ON O2 AT 6LPM VIA SIMPLE MASK, TOLERATING WELL. SPO2 >95%. NO ACUTE DISTRESS. ENDORSE TO AM RN FOR CONTINUITY OF CARE.
--- NOTE | 2020-06-11 07:15 | NUR ---
RN OPENING NOTE Received patient awake in bed no signs of distress. On regular mask 6L tolerating well. Patient is AO x2 jamaican speaking understands a little bit of occitan. Tele reading NSR 60-70s. Has JUAN Midline flushes well. Safety measures reinforced. Call light within reach. Bed locked and on lowest position. Side rails up x2. Will cont to monitor.
[2020-06-11 07:40] LABS: CALCIUM, SERUM 9.5 mg/dL (8.5-10.1); CHLORIDE 96 mmol/L (98-107); CREATININE 0.4 mg/dL (0.6-1.3); GLUCOSE 104 mg/dL (74-106); POTASSIUM 4.1 mmol/L (3.5-5.1); SODIUM SERUM 136 mmol/L (136-145); UREA NITROGEN, BLOOD 29 mg/dL (7-18)
[2020-06-11 07:42] LABS: CARBON DIOXIDE 42 mmol/L (21-32)
--- NOTE | 2020-06-11 07:42 | NUR ---
RECEIVED CALL FROM LABS FOR CO2 LEVEL OF 42. WILL INFORM DR. HILARIO.
[2020-06-11] MEDS: FUROSEMIDE 40 MG/4 ML VIAL IV SCH (08:28)
[2020-06-11] MEDS: methylPREDNISolone SOD SUCC 40 MG/ML VIAL IV SCH (08:30)
[2020-06-11] MEDS: CYANOCOBALAMIN 500 MCG TABLET PO SCH (08:31)
[2020-06-11] MEDS: busPIRone 5 MG TABLET PO SCH ×2 (08:31→17:32)
[2020-06-11] MEDS: METFORMIN XR 500 MG TAB.SR.24H PO SCH (08:31)
[2020-06-11] MEDS: SENNOSIDES 8.6 MG TABLET PO SCH ×2 (08:31→17:32)
[2020-06-11] MEDS: PANTOPRAZOLE 40 MG VIAL IV SCH (08:32)
[2020-06-11] MEDS: MAGNESIUM OXIDE 400 MG TABLET PO SCH (08:32)
[2020-06-11] MEDS: METHIMAZOLE (5MG) 5 MG TABLET PO SCH (08:33)
[2020-06-11] MEDS: CLOTRIMAZOLE 1% 15 GM TUBE TP SCH ×2 (08:34→17:32)
[2020-06-11] MEDS: ENOXAPARIN SODIUM 40 MG/0.4 ML DISP.SYRIN SQ SCH (08:34)
[2020-06-11] MEDS: BLOOD SUGAR DIAGNOSTIC 1 EACH STRIP IN SCH ×2 (09:07→12:04)
[2020-06-11] MEDS: INSULIN REGULAR, HUMAN 100 UNIT/ML 3 ML VIAL SQ PRN ×2 (09:09→12:08)
--- NOTE | 2020-06-11 09:51 | NUR ---
RECEIVED ORDER FOR ABG FROM DR. HILARIO. NOTED AND CARRIED OUT.
[2020-06-11 10:19] LABS: ABG BASE EXCESS 12.5 mmol/L; ABG OXYGEN SATURATION 97.3 % (92.0-98.5); ABG PCO2 51.4 mmHg (35.0-45.0); ABG PH 7.485 (7.350-7.450); ABG PO2 88.2 mmHg (75.0-100.0); AaDO2 108.9 mmHg; COHb 0.4 % (0.5-1.5); MetHb 0.1 % (0.0-1.5); O2Hb 96.8 % (94.0-97.0); SITE, ABG Left Radial
--- NOTE | 2020-06-11 10:28 | NUR ---
WOUND CARE FOLLOW UP: REVIEWED CHART, NURSING DOCUMENTATION AND PHOTOS WHICH CONTINUE TO SHOW REDNESS TO SKIN FOLDS AND MOISTURE/INCONTINENCE ASSOCIATED SKIN DAMAGE OVER PREVIOUS SACRAL/BUTTOCKS SCARRING, PRESENT ON ADMISSION. DISCUSSED SKIN PROTECTION WITH NURSING STAFF. MD IN AGREEMENT WITH PLAN OF CARE.
--- NOTE | 2020-06-11 11:30 | NUR ---
ABG RESULTS RELAYED TO DR HILARIO WITH NO NEW ORDERS.
[2020-06-11] MEDS: GUAIFENESIN/D-METHORPHAN HB 5 ML UDC PO PRN (12:45)
--- NOTE | 2020-06-11 13:53 | NUR ---
DR. HURD FACE TIME WITH PATIENT ,REVIEWED LABS OK TO DISCONTINUE ACCUCHECKS.
[2020-06-11] MEDS: TRAMADOL HCL 50 MG TABLET PO PRN (15:23)
--- NOTE | 2020-06-11 18:19 | NUR ---
RN CLOSING NOTE Patient in bed asleep appears calm and relaxed. On oxygen mask 6L tolerating well no signs of distress. O2 sat 97%. Patient is AO x2-3. Tele monitor reading NSR 80s. Kept clean and comfortable. Repositioned q2h. Changed padding PRN. Applied treatment as ordered tolerated well. JUAN Midline running Merrem @ 33.33/hr. Vital signs within normal limits. All due meds given. All needs met. Safety measures implemented. Call light within reach. Bed locked and on lowest position. Side rails up x2. Will endorse to shift commander nurse for isabel.
--- NOTE | 2020-06-11 20:00 | NUR ---
RN OPENING NOTES: PATIENT IN BED, AWAKE, AAOX2. NO RESPIRATORY DISTRESS. ON O2 AT 6LPM VIA NC. NO C/O PAIN. ON CARDIAC MONITORING, NSR, HR 80s. JUAN MIDLINE C/D/I; FLUSHING WELL. SAFETY PRECAUTIONS IMPLEMENTED. BED LOCKED, ALARM ON, LOW POSITION. CALL LIGHT WITHIN REACH. WILL CONT. TO MONITOR.
[2020-06-11] MEDS: ATORVASTATIN 10 MG TABLET PO SCH (21:09)
[2020-06-12] VITALS: BP 146/76
[2020-06-12] MEDS: MEROPENEM 1 G in IV NS 0.9% 100 ML IV SCH ×3 (01:55→17:03)
[2020-06-12 04:00] VITALS: BP 127/70
[2020-06-12] MEDS: GUAIFENESIN/D-METHORPHAN HB 5 ML UDC PO PRN ×2 (04:44→15:16)
[2020-06-12] MEDS: GABAPENTIN 100 MG CAPSULE PO SCH ×3 (04:44→21:46)
--- NOTE | 2020-06-12 07:24 | NUR ---
RN CLOSING NOTE: PATIENT IN BED. NO ACUTE DISTRESS. IN STABLE CONDITION DURING SHIFT. ENDORSED TO AM RN FOR CONTINUITY OF CARE.
[2020-06-12] MEDS: PANTOPRAZOLE 40 MG VIAL IV SCH (07:58)
[2020-06-12 08:00] VITALS: BP 153/73
--- NOTE | 2020-06-12 08:05 | NUR ---
RN OPENING NOTES RECEIVED PATIENT RESTING IN BED COMFORTABLY,EASILY AROUSED. PT IS AOX2-3, VERBAL, AND BED BOUND. SHE IS ON 6L OF OXYGEN VIA SIMPLE FACE MASK, NO S/SX OF RESP DISTRESS. TELE MONITOR SHOWING NSR. REDNESS PRESENT ON BILATERAL BREAST AND ABDOMINAL FOLDS, SACRAL REDNESS PRESENT, WILL ADDRESS PER WOUND CARE PLAN. IV SITE ON JUAN MIDLINE IS PATENT AND INTACT. COVID ISO HAS BEEN IMPLEMENTED AND ENFORCED. SAFETY MEASURES HAVE BEEN IMPLEMENTED, CALL LIGHT IS WITHIN REACH, BED IS IN LOWEST AND LOCKED POSITION, SIDE RAILS UP X2, WILL CONTINUE TO MONITOR FOR ANY CHANGES.
[2020-06-12] MEDS: TRAMADOL HCL 50 MG TABLET PO PRN ×2 (09:09→20:29)
[2020-06-12] MEDS: METFORMIN XR 500 MG TAB.SR.24H PO SCH (09:10)
[2020-06-12] MEDS: busPIRone 5 MG TABLET PO SCH ×2 (09:10→16:23)
[2020-06-12] MEDS: CYANOCOBALAMIN 500 MCG TABLET PO SCH (09:11)
[2020-06-12] MEDS: FUROSEMIDE 40 MG/4 ML VIAL IV SCH (09:11)
[2020-06-12] MEDS: METHIMAZOLE (5MG) 5 MG TABLET PO SCH (09:11)
[2020-06-12] MEDS: SENNOSIDES 8.6 MG TABLET PO SCH ×2 (09:11→16:24)
[2020-06-12] MEDS: methylPREDNISolone SOD SUCC 40 MG/ML VIAL IV SCH (09:11)
[2020-06-12] MEDS: ENOXAPARIN SODIUM 40 MG/0.4 ML DISP.SYRIN SQ SCH (09:13)
[2020-06-12] MEDS: MAGNESIUM OXIDE 400 MG TABLET PO SCH (09:13)
[2020-06-12] MEDS: CLOTRIMAZOLE 1% 15 GM TUBE TP SCH ×2 (09:14→16:24)
[2020-06-12 12:00] VITALS: BP 137/75
[2020-06-12] MEDS: HYDROMORPHONE 1 MG/1 ML DISP.SYRIN IV PRN (14:30)
[2020-06-12 16:00] VITALS: BP 129/80
--- NOTE | 2020-06-12 19:23 | NUR ---
RN CLOSING NOTES PATIENT IS RESTING IN BED COMFORTABLY, NO ACUTE CHANGES OCCURRED THROUGHOUT THE SHIFT, VITAL SIGNS ARE STABLE, PT NEEDS HAVE BEEN MET. SAFETY MEASURES HAVE BEEN IMPLEMENTED, CALL LIGHT IS WITHIN REACH, PT HAS BEEN ENDORSED TO NIGHTSHIFT RN FOR SIDDHARTHA.
--- NOTE | 2020-06-12 19:30 | NUR ---
RN RECOVERY OPENING NOTES RECEIVED PATIENT FROM MORNING SHIFT, ALERT AND ORIENTED X 2-3. VERBALLY RESPONSIVE AND ABLE TO FOLLOW DIRECTIONS. BREATHING REGULAR AND UNLABORED ON OXYGEN AT 6L/MIN VIA FACE MASK. ON CARDIAC MONITORING WITH NSR AT 85bpm. LEFT UPPER ARM MIDLINE INTACT AND PATENT, INFUSING WELL WITH NO BLEEDING OR S/S OF INFILTRATION NOTED. DENIES SUICIDAL IDEATION. COMPLAINED OF 3/10 THROAT PAIN, NON-PHARMACOLOGICAL INTERVENTIONS PROVIDED. BED NAD LOCKED ON SEMI FOWLERS POSITION. CALL LIGHT IN REACH. WILL CONTINUE TO MONITOR.
[2020-06-12 20:00] VITALS: BP 95/56
--- NOTE | 2020-06-12 20:30 | NUR ---
WAITER/WAITRESS TOURIST CLASS NOTES COMPLAINED OF 7/10 THROAT PAIN, TRAMADOL 50MG GIVEN BY MOUTH. NON-PHARMACOLOGICAL INTERVENTIONS PROVIDED. WILL CONTINUE TO MONITOR.
[2020-06-12] MEDS: ATORVASTATIN 10 MG TABLET PO SCH (21:46)
[2020-06-13] VITALS (7 sets, daily range): BP systolic 101–115; BP diastolic 57–73
[2020-06-13] MEDS: GUAIFENESIN/D-METHORPHAN HB 5 ML UDC PO PRN ×3 (01:02→15:55)
[2020-06-13] MEDS: GABAPENTIN 100 MG CAPSULE PO SCH ×3 (04:58→21:51)
--- NOTE | 2020-06-13 06:20 | NUR ---
MUSEUM ASSISTANT CLOSING NOTES PATIENT IN BED ALERT AND ORIENTED X 2-3. AFEBRILE WITH NO S/S OF DISTRESS OBSERVED. MAINTAINED ON CARDIAC MONITORING WITH NSR AT 72bpm. LEFT UPPER ARM MIDLINE PATENT AND FLUSHING WELL. NO COMPLAINTS OF PAIN/DISCOMFORT REPORTED AT THIS TIME. BED LOW AND LOCKED ON SEMI FOWLERS POSITION. CALL LIGHT IN REACH. WILL ENDORSE TO MORNING SHIFT FOR SIDDHARTHA.
--- NOTE | 2020-06-13 08:00 | NUR ---
METAL FURNITURE ASSEMBLY SUPERVISOR OPENING NOTES RECEIVED PT ALERT AND ORIENTED X 2-3. VERBALLY RESPONSIVE AND ABLE TO FOLLOW DIRECTIONS. BREATHING REGULAR AND UNLABORED ON OXYGEN AT 6L/MIN VIA FACE MASK. ON CARDIAC MONITORING WITH NSR AT 85bpm. LEFT UPPER ARM MIDLINE INTACT AND PATENT, INFUSING WELL WITH NO BLEEDING OR S/S OF INFILTRATION NOTED. DENIES SUICIDAL IDEATION. NON-PHARMACOLOGICAL INTERVENTIONS PROVIDED. BED LOCKED ON SEMI FOWLERS POSITION. CALL LIGHT IN REACH. WILL CONTINUE TO MONITOR.
[2020-06-13] MEDS: PANTOPRAZOLE 40 MG VIAL IV SCH (08:20)
[2020-06-13] MEDS: CYANOCOBALAMIN 500 MCG TABLET PO SCH (08:20)
[2020-06-13] MEDS: busPIRone 5 MG TABLET PO SCH ×2 (08:20→16:15)
[2020-06-13] MEDS: FUROSEMIDE 40 MG/4 ML VIAL IV SCH (08:20)
[2020-06-13] MEDS: METHIMAZOLE (5MG) 5 MG TABLET PO SCH (08:21)
[2020-06-13] MEDS: METFORMIN XR 500 MG TAB.SR.24H PO SCH (08:21)
[2020-06-13] MEDS: methylPREDNISolone SOD SUCC 40 MG/ML VIAL IV SCH (08:21)
[2020-06-13] MEDS: MAGNESIUM OXIDE 400 MG TABLET PO SCH (08:21)
[2020-06-13] MEDS: SENNOSIDES 8.6 MG TABLET PO SCH ×2 (08:21→16:15)
[2020-06-13] MEDS: ENOXAPARIN SODIUM 40 MG/0.4 ML DISP.SYRIN SQ SCH (08:22)
[2020-06-13] MEDS: CLOTRIMAZOLE 1% 15 GM TUBE TP SCH ×2 (09:30→16:35)
--- NOTE | 2020-06-13 14:00 | NUR ---
TITRATED PT TO O2 CANNULA AT 4L/MIN VIA NC WITH O2 SAT 96%-NO S/S OF SOB JUST C/O SORE THROAT OCCASIONALLY BUT ABLE TO SWALLOW PUREED FOOD AND TOLERATED THIN LIQUIDS WITH ASPIRATION PRECAUTIONS. HOB ELEVATED.A FEEDER.
[2020-06-13] MEDS: TRAMADOL HCL 50 MG TABLET PO PRN (15:56)
--- NOTE | 2020-06-13 19:15 | NUR ---
RN OPENING NOTES: RECEIVED GREEK SPEAKING PT A/OX 2-3 RESTING COMFORTABLY IN BED. PATIENT IN NO S/SX OF ACUTE DISTRESS AT THIS TIME. NO SOB NOTED. PATIENT'S BREATHING IS EVEN AND UNLABORED. PATIENT IS ON 4L OF OXYGEN VIA NC; TOLERATING WELL. PATIENT ON TELE MONITORING READING SINUS RHYTHM HR IS 80s. NOTED IV SITE ON L UA MIDLINE; PATENT IN INTACT,NO S/S OF INFECTION OR INFILTRATION WITH RUNNING IV FLUID OF 250 NS @TKO. SAFETY MEASURES HAVE BEEN PROVIDED AND IMPLEMENTED. PATIENT BED ALARM IS ON. HEAD OF BED ELEVATED. BED IS LOCKED, IN LOWEST POSITION AND SIDE RAILS UP. CALL LIGHT WITHIN REACH OF THE PATIENT. ISOLATION PRECAUTIONS IN PLACE. WILL CONTINUE TO MONITOR AND REASSESS FOR ANY CHANGES.
--- NOTE | 2020-06-13 21:40 | NUR ---
RN NOTES CALLED DR. CANDY HURD @[phone], TO VERIFY IF HE WOULD LIKE TO HAVE ANOTHER COVID TEST FOR PATIENT, PATIENT CAME POSITIVE FROM REGULAR COVID SWAB TEST LAST 05.17.2020 AND 06.04.2020.AND NEGATIVE LAST 06.13.2020 UNDER RAPID TEST. LEFT MESSAGE AND REQUESTED FOR CALLBACK. -AWAITING RESPONSE.
[2020-06-13] MEDS: ATORVASTATIN 10 MG TABLET PO SCH (21:51)
[2020-06-13] MEDS: ACETAMINOPHEN 325 MG TABLET PO PRN (21:52)
[2020-06-14] VITALS: BP 93/60
[2020-06-14 04:00] VITALS: BP 98/65
[2020-06-14] MEDS: GABAPENTIN 100 MG CAPSULE PO SCH ×3 (05:25→21:12)
[2020-06-14] MEDS: TRAMADOL HCL 50 MG TABLET PO PRN ×3 (05:25→21:13)
[2020-06-14] MEDS: IV NS 0.9% 250 ML IV PRN (05:47)
--- NOTE | 2020-06-14 06:26 | NUR ---
RN CLOSING NOTE: PATIENT REMAINS IN ROOM. NO SIGNS OF RESPIRATORY DISTRESS. SAFETY MEASURES IMPLEMENTED, BED IN LOWEST POSITION, LOCKED, SIDE RAILS UP, CALL LIGHT WITHIN REACH. ALL NEEDS AND ORDERS ADDRESSED DURING THE SHIFT. ALL DUE MEDS GIVEN ORDERED & SCHEDULED ; PATIENT TOLERATED WELL.PATIENT KEPT CLEAN AND COMFORTABLE WITHIN THE SHIFT. ENDORSED TO INCOMING SHIFT RN FOR CONTINUITY OF CARE.
--- NOTE | 2020-06-14 07:30 | NUR ---
RN OPENING NOTES Received patient at bed, A/Ox3, Slovak and Vincentian speaker, denies pain or discomfort at this moment, delivering 4L of O2 via NC, saturating well 98%, no s/sx or SOB noted; Patient is on tele monitor with readings; Sinus Rhythm in 80s,Skin is intact, Midline IV on Left upper arm noted, patent and intact. Safety measures implemented, call light within reach, bed in lowest position, will cont to monitor
[2020-06-14] MEDS: PANTOPRAZOLE 40 MG VIAL IV SCH (07:56)
[2020-06-14 08:00] VITALS: BP 98/55
[2020-06-14] MEDS: methylPREDNISolone SOD SUCC 40 MG/ML VIAL IV SCH (08:15)
[2020-06-14] MEDS: MAGNESIUM OXIDE 400 MG TABLET PO SCH (08:16)
[2020-06-14] MEDS: METFORMIN XR 500 MG TAB.SR.24H PO SCH (08:16)
[2020-06-14] MEDS: SENNOSIDES 8.6 MG TABLET PO SCH ×2 (08:16→16:18)
[2020-06-14] MEDS: FUROSEMIDE 40 MG/4 ML VIAL IV SCH (08:16)
[2020-06-14] MEDS: CYANOCOBALAMIN 500 MCG TABLET PO SCH (08:16)
[2020-06-14] MEDS: CLOTRIMAZOLE 1% 15 GM TUBE TP SCH ×2 (08:18→16:33)
[2020-06-14] MEDS: ENOXAPARIN SODIUM 40 MG/0.4 ML DISP.SYRIN SQ SCH (08:18)
--- NOTE | 2020-06-14 08:34 | NUR ---
DISCUSSED WITH DR. HILARIO NEGATIVE RAPID TEST,PER DR. HILARIO CANNOT D/C ISO UNLESS 2 NEGATIVE PCR.WILL CONTINUE ISO PER .
[2020-06-14] MEDS: busPIRone 5 MG TABLET PO SCH ×2 (10:55→16:18)
[2020-06-14] MEDS: METHIMAZOLE (5MG) 5 MG TABLET PO SCH (10:55)
--- NOTE | 2020-06-14 11:52 | NUR ---
per Dr Childress titrated O2 to 3L, tolerating well, no SOB, saturating 98%
[2020-06-14 12:00] VITALS: BP 94/53
[2020-06-14 16:00] VITALS: BP 101/58
[2020-06-14] MEDS: GUAIFENESIN/D-METHORPHAN HB 5 ML UDC PO PRN ×2 (16:33→21:21)
--- NOTE | 2020-06-14 19:15 | NUR ---
MS RN OPENING NOTES: RECEIVED PATIENT IN BED, A/O X3. WITH COMPLAIN OF PAIN ON THE THROAT, PATIENT ABLE TO TALK VERY SOFTLY. CALL LIGHT WITHIN REACH. BED ALARM ON. BED IN LOWEST AND LOCKED POSITION. WITH AIR MATTRESS ON. WITH MCDONALD CATHETER INTACT,DRAINING TO A CLEAR YELLOW URINE. HOB ELEVATED AT 35 DEGREES.
--- NOTE | 2020-06-14 19:24 | NUR ---
CLOSING NOTES RN Patient remains in bed, tolerating NC well, no SOB, no pain, meds are given comfort needs are met,safety measures implemented, call light within reach, bed in lowest position, will endorse to PM shift RN
[2020-06-14 20:00] VITALS: BP 99/70
[2020-06-14] MEDS: ATORVASTATIN 10 MG TABLET PO SCH (21:12)
[2020-06-15 04:00] VITALS: BP 112/75
[2020-06-15] MEDS: GABAPENTIN 100 MG CAPSULE PO SCH ×2 (04:26→12:21)
[2020-06-15] MEDS: GUAIFENESIN/D-METHORPHAN HB 5 ML UDC PO PRN (04:50)
[2020-06-15 06:29] LABS: BASOPHILS # (AUTO) 0.2 /CMM (0.0-0.2); EOSINOPHILS % (AUTO) 1.9 % (0.0-6.0); HEMATOCRIT 37 % (33-45); HEMOGLOBIN 11.8 g/dL (11.5-14.8); LYMPHOCYTES # (AUTO) 1.9 /CMM (0.8-4.8); LYMPHOCYTES % (AUTO) 11.5 % (20.0-44.0); MEAN CORPUSCULAR HGB CONC 32 g/dl (31.0-36.0); MEAN CORPUSCULAR VOLUME 88 fL (82-100); MONOCYTES # (AUTO) 0.8 /CMM (0.1-1.30); MONOCYTES % (AUTO) 4.6 % (2.0-12.0); NEUTROPHILS # (AUTO) 13.6 /CMM (1.8-8.9); PLATELET COUNT (AUTO) 420 /CMM (150-450); WHITE BLOOD COUNT (AUTO) 16.8 K/uL (4.3-11.0)
--- NOTE | 2020-06-15 07:01 | NUR ---
MS RN CLOSING NOTES: PATIENT IN BED, AWAKE A/O X3. NO SOB NOTED. STILL WITH PAIN ON HER THROAT, TRAMADOL PO GIVEN LAST NIGHT. ROBITUSSIN PRN GIVEN X2 DURING THE SHIFT. CALL LIGHT WITHIN REACH. BED ALARM ON. BED IN LOWEST AND LOCKED POSITION.
[2020-06-15 07:04] LABS: CALCIUM, SERUM 9.2 mg/dL (8.5-10.1); CARBON DIOXIDE 38 mmol/L (21-32); CHLORIDE 92 mmol/L (98-107); CREATININE 0.5 mg/dL (0.6-1.3); GLUCOSE 119 mg/dL (74-106); POTASSIUM 3.1 mmol/L (3.5-5.1); SODIUM SERUM 132 mmol/L (136-145); UREA NITROGEN, BLOOD 29 mg/dL (7-18)
--- NOTE | 2020-06-15 07:50 | NUR ---
MS RN NOTES RECEIVED PT IN BED, AWAKE, A/O X2-3. PT ON SUPPLEMENTARY OXYGEN AT 3L VIA NC, WITH NO ACUTE RESPIRATORY DISTRESS NOTED. PT DENIES ANY PAIN OR DISCOMFORT AT THIS TIME. IVF NS AT TKO AT JUAN MIDLINE, INTACT AND FLUID INFUSING WELL. PT KEPT COMFORTABLE IN BED. CALL LIGHT KEPT WITHIN REACH. PT'S BE IN LOWEST, LOCKED POSITION WITH SRX3. WILL CONTINUE PLAN OF CARE.
[2020-06-15 08:00] VITALS: BP 109/65
[2020-06-15] MEDS: CYANOCOBALAMIN 500 MCG TABLET PO SCH (08:46)
[2020-06-15] MEDS: METHIMAZOLE (5MG) 5 MG TABLET PO SCH (08:46)
[2020-06-15] MEDS: SENNOSIDES 8.6 MG TABLET PO SCH (08:46)
[2020-06-15] MEDS: CLOTRIMAZOLE 1% 15 GM TUBE TP SCH (08:47)
[2020-06-15] MEDS: METFORMIN XR 500 MG TAB.SR.24H PO SCH (08:47)
[2020-06-15] MEDS: busPIRone 5 MG TABLET PO SCH (08:47)
[2020-06-15] MEDS: MAGNESIUM OXIDE 400 MG TABLET PO SCH (08:47)
[2020-06-15] MEDS: TRAMADOL HCL 50 MG TABLET PO PRN ×2 (09:04→14:58)
[2020-06-15 10:13] LABS: BAND % (MANUAL) 1 % (0.0-5.0); EOSINOPHILS % (MANUAL) 1 % (0-4); LYMPHOCYTES % (MANUAL) 9 % (16-48); MONOCYTES % (MANUAL) 7 % (0-11.0); NEUTROPHILS % (MANUAL) 82 (42-76)
[2020-06-15] MEDS: POTASSIUM CHLORIDE 20 MEQ POWDER PACKET PO SCH ×2 (10:38→11:26)
--- NOTE | 2020-06-15 11:54 | NUR ---
MS RN NOTES PER DR. HURD PT IS CLEARED FOR DISCHARGE BACK TO [facility]. PT MADE AWARE. CM/BECKY INVOLVED. TRANSPORT AT 3PM. WILL CONTINUE TO MONITOR.
[2020-06-15] MEDS: ACETAMINOPHEN 325 MG TABLET PO PRN (12:24)
[2020-06-15 15:15] VITALS: BP 96/61
--- NOTE | 2020-06-15 15:32 | NUR ---
MS HYDROMETEOROLOGY TEACHER NOTES PT IN BED, AWAKE, A/O X2-3. PT ON SUPPLEMENTARY OXYGEN AT 3L VIA [place], WITH NO ACUTE RESPIRATORY DISTRESS NOTED. PT IN PAIN OF 7/10 AND REQUESTED FOR TRAMADOL BEFORE GOING BACK TO [facility]. PIV JUAN MIDLINE,REMOVED AND APPLIED DRY DRESSING. PT UNABLE TO SIGN DUE TO ARM WEAKNESS. 2 RNS COSIGNED WITH DISCHARGE INSTRUCTIONS AND INVENTORY LIST, NO BELONGINGS NOTED. ALL NEEDS AND CARE ATTENDED. WOUND TREATMENT PROVIDED. SKIN ASSESSED, PICTURES TAKEN AND FILED IN THE CHART. ALL NEEDS AND CARE ATTENDED. REPORT GIVEN TO RN/CHARLINE AT [facility]. HOSPITALIST//VANNESSA AWARE OF DISCHARGE. PT LEFT THE UNIT WITH 2EMTS AT 1520 VIA [facility]. CHARGE NURSE AWARE OF DISCHARGE.
== END 2020-06-15 15:25 | DRG 870 ==
LOC: ER 10:40 → TELE1 12:38 → ICU 05-18 06:38 → TELE1 05-19 14:05 → ICU 05-23 07:51 → TELE1 06-08 18:29 → MEDSG1 06-14 13:57
PROVIDERS: ADMIT Internal Medicine; ATTEND Internal Medicine
PROC: 05HF33Z Insertion of Infusion Device into Left Cephalic Vein, Percutaneous Approach (ICD-10-PCS; principal; 2020-05-22)
PROC: 5A1955Z Respiratory Ventilation, Greater than 96 Consecutive Hours (ICD-10-PCS; 2020-05-23)
PROC: 0BH17EZ Insertion of Endotracheal Airway into Trachea, Via Natural or Artificial Opening (ICD-10-PCS; 2020-05-23)
PROC: 05HD33Z Insertion of Infusion Device into Right Cephalic Vein, Percutaneous Approach (ICD-10-PCS; 2020-05-26)
DX: A41.89 Other specified sepsis (principal); U07.1 COVID-19; J12.89 Other viral pneumonia; J15.0 Pneumonia due to Klebsiella pneumoniae; J96.01 Acute respiratory failure with hypoxia; G93.40 Encephalopathy, unspecified; E66.2 Morbid (severe) obesity with alveolar hypoventilation; E46 Unspecified protein-calorie malnutrition; E87.3 Alkalosis; Z66 Do not resuscitate; Z86.73 Personal history of transient ischemic attack (TIA), and cerebral infarction without residual deficits; E05.90 Thyrotoxicosis, unspecified without thyrotoxic crisis or storm; Z74.01 Bed confinement status; D63.8 Anemia in other chronic diseases classified elsewhere; K21.9 Gastro-esophageal reflux disease without esophagitis; L08.9 Local infection of the skin and subcutaneous tissue, unspecified; R13.10 Dysphagia, unspecified; Z68.24 Body mass index [BMI] 24.0-24.9, adult; Z22.322 Carrier or suspected carrier of Methicillin resistant Staphylococcus aureus; E11.65 Type 2 diabetes mellitus with hyperglycemia; R79.89 Other specified abnormal findings of blood chemistry; I11.0 Hypertensive heart disease with heart failure; I50.9 Heart failure, unspecified; T38.0X5A Adverse effect of glucocorticoids and synthetic analogues, initial encounter; Y92.89 Other specified places as the place of occurrence of the external cause; Z87.01 Personal history of pneumonia (recurrent); F03.90 Unspecified dementia, unspecified severity, without behavioral disturbance, psychotic disturbance, mood disturbance, and anxiety; R63.4 Abnormal weight loss; K82.8 Other specified diseases of gallbladder; Z51.5 Encounter for palliative care; E87.70 Fluid overload, unspecified; E11.42 Type 2 diabetes mellitus with diabetic polyneuropathy; Z79.84 Long term (current) use of oral hypoglycemic drugs
CPT/HCPCS: 31720; 36415; 36600; 71045-TC; 80048-TC; 80076-TC; 80202-TC; 81000-TC; 82247-TC; 82248-TC; 82728-TC; 82803-TC; 82962-TC; 83605-TC; 83615-TC; 83735-TC; 83880; 84436-TC; 84439-TC; 84443-TC; 84478-TC; 84480; 84481; 84484-TC; 85025-TC; 85378-TC; 85610-TC; 85730-TC; 86140-TC; 86480; 87040-TC; 87070-TC; 87081-TC; 87086-TC; 87186-TC; 92526; 92611-TC; 94002-TC; 94003-TC; 94799-TC; A6253; C9113; G0378; J0692; J0696; J1100; J1170; J1200; J1650; J1815; J1940; J2001; J2185; J2405; J2543; J2704; J2920; J3262; J3370; J3490; J7030; J7050; J7060; Q9967; U0003-CS

== ENCOUNTER 2021-11-05 17:01 | Inpatient (IN) | payer MEDICARE, OTHER ==
[~2021-11-05] VITALS: Ht 152.4 cm; Wt 77.1 kg
[~2021-11-05 17:01] MED LIST changes: -ACET125T3 PO; -ASCO500C18 PO; -ASPI-1152 PO; -ATOR10TA PO; -BACL10TA PO; +BISA10SU11 RC; +CEFT1VIA15 IV; -ENOX40DI SQ; -FLUT1BLS IH; +FURO-145 PO; +GABA-532 PO; -GABA-534 PO; +GLUC1KIT IM; -GUAI100S11 PO; +GUAI237L83 PO; -HYDR-3974 PO; +HYDR-4384 PO; -IPRA3AMP23 IH; -LACT1CAP94 PO; +LANS15CA13 PO; -LORA10TA7 PO; +MAG30ORA PO; +MAGN400O6 PO; +METF-881 PO; -METO25TA6 PO; -MIRT15TA7 PO; -MONT10TA22 PO; -MULT-447 PO; +NA P133E RC; -NIFE30TA91 PO; -PANT40TA4 PO; -POLY15DR40 EACHEYE; -PRED20TA PO; -SPIR25TA6 PO; -TRAM50TA2 PO; -ZINC1CAP2 PO; -ZOLP5TAB8 PO
--- NOTE | 2021-11-05 17:10 | NUR ---
[id number], PER REPORT, DIFFICULT TO AROUSE 1 HR AUTO BATTERY BUILDER. HYPOTENSIVE AUTO BATTERY BUILDER W/ SYSTOLIC B/P IN THE 80'S. BG 191 AUTO BATTERY BUILDER. UPON ARRIVAL THE PATIENT IS RESPONSIVE TO TACTILE STIMULI. RESPIRATION REGULAR AND UNLABORED. ATTACHED TO THE MONITOR. BLANKET PROVIDED FOR COMFORT. WILL CONTINUE TO MONITOR THE PATIENT.
--- NOTE | 2021-11-05 17:12 | NUR ---
MCDONALD CATH APPLICATIONS SUPPORT SPECIALIST
--- NOTE | 2021-11-05 17:15 | NUR ---
PHLEBATOMIST AT THE BEDSIDE
--- NOTE | 2021-11-05 17:20 | NUR ---
IV LINE ESTABLISHED BLOOD DRAWN AND SENT TO LAB.
[2021-11-05 17:36] LABS: ALANINE AMINOTRANSFERASE 21 U/L (12-78); ALBUMIN 2.2 g/dL (3.4-5.0); ALKALINE PHOSPHATASE 103 U/L (46-116); ASPARTATE AMINOTRANSFERASE 14 U/L (15-37); BILIRUBIN,DIRECT 0.1 mg/dL (0.0-0.2); BILIRUBIN,TOTAL 0.2 mg/dL (0.2-1.0); CALCIUM, SERUM 8.6 mg/dL (8.5-10.1); CARBON DIOXIDE 24 mmol/L (21-32); CHLORIDE 104 mmol/L (98-107); CREATININE 1.5 mg/dL (0.6-1.3); GLUCOSE 127 mg/dL (74-106); POTASSIUM 3.7 mmol/L (3.5-5.1); SODIUM SERUM 138 mmol/L (136-145); TOTAL PROTEIN, SERUM 7.1 g/dL (6.4-8.2); UREA NITROGEN, BLOOD 52 mg/dL (7-18)
[2021-11-05 17:45] LABS: BASOPHILS # (AUTO) 0.1 K/uL (0.0-0.2); BASOPHILS % (AUTO) 0.1 % (0.0-2.0); EOSINOPHILS % (AUTO) 0.2 % (0.0-6.0); HEMATOCRIT 30 % (33-45); HEMOGLOBIN 9.1 g/dL (11.5-14.8); LYMPHOCYTES # (AUTO) 2.2 K/uL (0.8-4.8); LYMPHOCYTES % (AUTO) 5.7 % (20.0-44.0); MEAN CORPUSCULAR HGB CONC 31 g/dl (31.0-36.0); MEAN CORPUSCULAR VOLUME 91 fL (82-100); MONOCYTES # (AUTO) 1.2 K/uL (0.1-1.30); MONOCYTES % (AUTO) 3.1 % (2.0-12.0); NEUTROPHILS % (AUTO) 90.9 % (43.0-81.0); PLATELET COUNT (AUTO) 314 K/uL (150-450); RED BLOOD CELL COUNT(AUTO) 3.25 MIL/uL (4.0-5.2)
[2021-11-05 17:46] LABS: WHITE BLOOD COUNT (AUTO) 38.5 K/uL (4.3-11.0)
[2021-11-05] MEDS ORDERED: VANCOMYCIN 1 GM in IV D5W 250 ML IV ONE (18:00)
[2021-11-05] MEDS ORDERED: MEROPENEM 1,000 MG in IV NS 0.9% 100 ML IV ONE (18:00)
--- NOTE | 2021-11-05 18:16 | NUR ---
URINE COLLECTED AND SENT TO THE LAB
--- NOTE | 2021-11-05 18:16 | NUR ---
COVID SWAB DONE AND SENT TO THE LAB
[2021-11-05] MEDS ORDERED: IV NS 0.9% 1,000 ML IV ONE (18:30)
[2021-11-05] MEDS ORDERED: NOREPINEPHRINE 8 MG in IV NS 0.9% 242 ML IV PRN (18:30)
[2021-11-05 18:37] LABS: BILIRUBIN,URINE MODERATE (NEGATIVE); COLOR,URINE YELLOW (YELLOW); LEUKOCYTE ESTERASE ,URINE Small (NEGATIVE); NITRITE, URINE Negative (NEGATIVE); PROTEIN,URINE 100 mg/dl (NEGATIVE); UGLUCOSE Negative (NEGATIVE); UROBILINOGEN,URINE 0.2 EU/dL (0.2)
[2021-11-05 18:39] LABS: BACTERIA,URINE 1+ /HPF (None Seen); SQUAMOUS EPITHELIAL CELL,UR Few /HPF (None Seen)
--- NOTE | 2021-11-05 18:39 | NUR ---
PICC LINE NURSE AT THE BEDSIDE
--- NOTE | 2021-11-05 18:47 | NUR ---
THE PATIENT IS VERBALLY RESPONSIVE.
[2021-11-05 18:49] LABS: BAND % (MANUAL) 21 % (0.0-5.0); LYMPHOCYTES % (MANUAL) 3 % (16-48); MONOCYTES % (MANUAL) 3 % (0-11.0); NEUTROPHILS % (MANUAL) 73 (42-76)
--- NOTE | 2021-11-05 19:23 | NUR ---
REPORT GIVEN TO NURSE NORRIS NASCIMENTO SIDDHARTHA
--- NOTE | 2021-11-05 20:21 | NUR ---
WEB COORDINATOR AT PT'S BEDSIDE
--- NOTE | 2021-11-05 20:32 | NUR ---
DR HURD PAGED PER DR DON.
--- NOTE | 2021-11-05 20:55 | NUR ---
DR HURD REPAGED PER DR DON
--- NOTE | 2021-11-05 22:19 | NUR ---
ASSIGNED TO BED ICU 253
[2021-11-05] MEDS ORDERED: MAGNESIUM HYDROXIDE 30 ML UDC PO PRN (22:30)
[2021-11-05] MEDS ORDERED: MAG HYDROX/AL HYDROX/SIMETH 30 ML UDC PO PRN (22:30)
--- NOTE | 2021-11-05 22:47 | NUR ---
FULLY VACCINATED MODERNA FIRST DOSE 12/09/20/ SECOND DOSE 01/06/21 BOOSTER 09/29/21
--- NOTE | 2021-11-05 22:57 | NUR ---
RN/ICU-ADMITTED THIS 81 Y/O FEMALE FROM ER PER ACLS PROTOCOL. DX:SEPSIS W/ SHOCK. ROUTINE ICU ADMISSION CARE INITIATED. PT. AWAKE, ALERT, ORIENTED TO SELF, CONFUSED, W/ GENERALIZED WEAKNESS. EKG ST W/ HR-108/MIN. BP-113/89. ON LEVOPHED DRIP AT 0.1 MCG/KG/MIN. WILL TITRATE TO KEEP SBP >90 PER PROTOCOL. BREATHING COMES EASY,W/ O2 SUPPORT OF 3L/NC, SATS.-100%. PT. ON DROPLET PRECAUTION PER ACNP ORDER, AWAITING COVID 19 PCR RESULT.PRECAUTIONS IN EFFECT. PT. IS A FULL CODE FOR NOW. PT. W/ POLST STATING "DO NOT RESUSCITATE STATUS". WILL NOTIFY HOSPITALIST PLASTICS ENGINEER FOR ORDER.PT. NOTED TO HAVE SKIN/WOUND ISSUES. REFER TO WD PHOTO AND SKIN PROBLEM ASSESSMENT FOR DETAILS. TREATMENT INITIATED PER PROTOCOL. MASTER BARBER CONSULTED. TEMPT.99/F, LIGHTLY COVERED W/ SHEET.NO S/S OF PAIN USING FLASS SCALE ASSESSMENT,NOT IN ANY DISTRESS.
[2021-11-05] MEDS ORDERED: *INSULIN REGULAR(HUMULIN R)HUM 100 UNIT/ML VIAL SQ PRN (23:00)
[2021-11-05] MEDS ORDERED: DEXTROSE 50%-WATER 50 ML DISP.SYRIN IV PRN (23:00)
--- NOTE | 2021-11-05 23:02 | NUR ---
REPORT GIVEN TO SARAH PT TRANSFERED PER ACLS PROTOCOL
[2021-11-05 23:03] VITALS: BP 113/89
[2021-11-05] MEDS: NOREPINEPHRINE 8 MG in IV NS 0.9% 242 ML IV PRN (23:03)
[2021-11-05 23:15] VITALS: BP 82/47
[2021-11-05 23:20] VITALS: BP 59/34
[2021-11-05 23:22] VITALS: BP 143/109
[2021-11-05 23:30] VITALS: BP 118/102
[2021-11-05 23:46] VITALS: BP 125/76
[2021-11-05] MEDS: IV NS 0.9% 1,000 ML IV PRN (23:49)
[2021-11-06] VITALS (90 sets, daily range): BP systolic 69–142; BP diastolic 25–100
[2021-11-06] MEDS ORDERED: MEROPENEM 1 G VIAL IV ONE (04:49)
[2021-11-06 04:57] LABS: BASOPHILS % (AUTO) 0.1 % (0.0-2.0); EOSINOPHILS % (AUTO) 0.1 % (0.0-6.0); HEMATOCRIT 27 % (33-45); HEMOGLOBIN 8.7 g/dL (11.5-14.8); LYMPHOCYTES # (AUTO) 1.1 K/uL (0.8-4.8); MEAN CORPUSCULAR HGB CONC 32 g/dl (31.0-36.0); MEAN CORPUSCULAR VOLUME 90 fL (82-100); MONOCYTES # (AUTO) 1.2 K/uL (0.1-1.30); MONOCYTES % (AUTO) 3.4 % (2.0-12.0); NEUTROPHILS # (AUTO) 34.8 K/uL (1.8-8.9); NEUTROPHILS % (AUTO) 93.4 % (43.0-81.0); PLATELET COUNT (AUTO) 294 K/uL (150-450); RED BLOOD CELL COUNT(AUTO) 3.03 MIL/uL (4.0-5.2)
[2021-11-06] MEDS ORDERED: MEROPENEM 1 G in IV NS 0.9% 100 ML IV SCH (05:00)
[2021-11-06 05:24] LABS: BILIRUBIN,TOTAL 0.2 mg/dL (0.2-1.0); POTASSIUM 3.4 mmol/L (3.5-5.1); TOTAL PROTEIN, SERUM 6.6 g/dL (6.4-8.2)
[2021-11-06 06:34] LABS: WHITE BLOOD COUNT (AUTO) 37.2 K/uL (4.3-11.0)
[2021-11-06] MEDS: BLOOD SUGAR DIAGNOSTIC 1 EACH STRIP VI SCH ×4 (07:30→21:19)
[2021-11-06] MEDS: busPIRone 5 MG TABLET PO SCH ×2 (09:00→17:45)
[2021-11-06] MEDS: INSULIN REGULAR, HUMAN 100 UNIT/ML 3 ML VIAL SQ PRN ×3 (09:18→17:42)
[2021-11-06 09:55] LABS: BAND % (MANUAL) 28 % (0.0-5.0); NEUTROPHILS % (MANUAL) 72 (42-76)
[2021-11-06] MEDS: PANTOPRAZOLE 40 MG TABLET.DR PO SCH (10:07)
[2021-11-06] MEDS: METHIMAZOLE (5MG) 5 MG TABLET PO SCH (10:07)
[2021-11-06] MEDS: POTASSIUM CL. PREMIX PERIPHER. 50 ML IV SCH ×2 (10:08→11:28)
[2021-11-06] MEDS: SENNOSIDES 8.6 MG TABLET PO SCH ×2 (10:08→17:45)
[2021-11-06] MEDS: MAGNESIUM OXIDE 400 MG TABLET PO SCH (10:08)
[2021-11-06] MEDS: CYANOCOBALAMIN 500 MCG TABLET PO SCH (10:08)
[2021-11-06] MEDS: GABAPENTIN 100 MG CAPSULE PO SCH ×3 (12:29→21:19)
[2021-11-06] MEDS: ACETAMINOPHEN 325 MG TABLET PO PRN (12:30)
--- NOTE | 2021-11-06 13:00 | NUR ---
Received order from Dr Hamilton for diet orders as aubree.
--- NOTE | 2021-11-06 15:00 | NUR ---
Patient redirected several times due to yelling and agitation. Decreased stimuli and provided distractions.
[2021-11-06] MEDS: MEROPENEM 1 G in IV NS 0.9% 100 ML IV SCH (17:45)
[2021-11-06] MEDS: VANCOMYCIN 1 GM in IV D5W 250 ML IV SCH (18:30)
[2021-11-06] MEDS: IV NS 0.9% 1,000 ML IV PRN (18:30)
--- NOTE | 2021-11-06 18:54 | NUR ---
RN CLOSING NOTES Patient is currently in bed resting and on 3 liters 02 via n/c. Patient is alert and oriented x 1. Breathing even and unlabored. On levo drip running at 0.04 mcg and iv fluids running at 50 cc/hour. No c/o pain or discomfort. Patient had urine output of 750 cc during shift. Patient ate 75% dinner after passing nursing eval. Patient was assisted with feeding. Will continue to monitor. Call light with in reach.
--- NOTE | 2021-11-06 18:59 | NUR ---
STONE REPAIRER CLOSING NOTES Patient received in bed asleep and on 3 liters 02 via n/c. Patient is alert and oriented x 1. Breathing even and unlabored. On levo drip running at 0.04 mcg and iv fluids running at 50 cc/hour. No c/o pain or discomfort. Will continue to monitor. Call light with in reach.Call light with in reach.
--- NOTE | 2021-11-06 19:00 | NUR ---
INFORMED ID REGARDING POSITIVE BLOOD CULTURES WITH NO NEW ORDERS.
--- NOTE | 2021-11-06 19:35 | NUR ---
RN OPENING NOTE ICU PT REC'D ON 3L OF O2 VIA NASAL CANNULA O2 SAT 100 NO SOB NO DISTRESS NOTED. PT IS ALERT, RESPONDS TO NAME, ESTONIAN SLOVAK SPEAKING. PT CONFUSED. NSR WITH HERT RATE OF 79 ON TELE MONITORING. PT HAS IVF RUNNING 0.9% NS @ 50ML/HR ORDERED AND LEVO RUNNING AT 0.04 MCG/KG/MIN TO KEEP SBP >90. PT HAS JUAN PICC AND MCDONALD CATH PRESENT DRAINING TO GRAVITY YELLOW IN COLOR. PT IS BED BOUND. SAFETY MEASURES IN PLACE HOB ELEVATED TOLERATED SIDE RAILS UP X2 BED LOCKED IN LOWEST POSITION CALL LIGHT WITHIN REACH. Addendum: 11/06/21 at 2051 by GARETH LOPEZ RN WOUND CONSULT STILL PENDING FOR SACRAL DECUB
[2021-11-06] MEDS: NOREPINEPHRINE 8 MG in IV NS 0.9% 242 ML IV PRN (19:40)
--- NOTE | 2021-11-06 19:47 | NUR ---
RN NOTE LAB RESULT BLOOD CX: GRAM NEG RODS WILL FOLLOW UP WITH ID
--- NOTE | 2021-11-06 19:53 | NUR ---
RN NOTE ID CASS AT BEDSIDE, NOTIFIED OF GRAM NEG RODS RESULT BLOOD CULTURE. ORDERS FOR NEW MCDONALD PT PRESENTED WITH IT ON ADMISSION. WILL CARRY OUT.
[2021-11-06] MEDS ORDERED: PROPOFOL 100 ML IV PRN (23:00)
[2021-11-07] VITALS (50 sets, daily range): BP systolic 87–128; BP diastolic 21–78
[2021-11-07 04:38] LABS: CALCIUM, SERUM 8.4 mg/dL (8.5-10.1); CARBON DIOXIDE 24 mmol/L (21-32); CHLORIDE 111 mmol/L (98-107); CREATININE 0.6 mg/dL (0.6-1.3); GLUCOSE 114 mg/dL (74-106); SODIUM SERUM 142 mmol/L (136-145); UREA NITROGEN, BLOOD 28 mg/dL (7-18)
[2021-11-07] MEDS: MEROPENEM 1 G in IV NS 0.9% 100 ML IV SCH ×2 (05:13→17:37)
[2021-11-07] MEDS: GABAPENTIN 100 MG CAPSULE PO SCH ×3 (05:13→21:44)
--- NOTE | 2021-11-07 06:47 | NUR ---
RN NOTE CLOSING ADMINISTERED TAP WATER ENEMA ORDERED, PT HAD 2 BM AFTER. BED BATH DONE CLAUDIO CARE DONE. PT STILL PENDING WOUND CONSULT. LEVO TITRATED DOWN AND TURNED OFF AT 0245 WITH BP STILL HOLDING WITHOUT PRESSOR SUPPORT. NEW MCDONALD PLACED, OUTPUT 600ML. NO SIGNIFICANT CHANGES NOTED IN PT CONDITION. PT REMAINS ON 3L OF O2, CONFUSED BUT REDIRECTABLE, CAN OCCASIONALLY BE UNCOOPERATIVE. SAFETY MEASURES IN PLACE. WILL ENDORSE TO DAY SHIFT RN FOR CONTINUATION OF CARE
--- NOTE | 2021-11-07 08:00 | NUR ---
AWAKE, ALERT, FOLLOWS SIMPLE COMMANDS, ANSWERS QUESTIONS APPROPRIATELY. O2 3 L N/C -SATS 100%. PLACED ON RA-O2 SAT 96%. LUNG SOUNDS CLEAR TO AUSCULTATION. SR 70"S ON MONITOR. NO ECTOPYS NOTED. BP REMAINS WNL OFF PRESSOR.
[2021-11-07 08:09] LABS: BASOPHILS % (AUTO) 0.3 % (0.0-2.0); EOSINOPHILS % (AUTO) 1.9 % (0.0-6.0); HEMATOCRIT 26 % (33-45); HEMOGLOBIN 8.3 g/dL (11.5-14.8); LYMPHOCYTES # (AUTO) 1.2 K/uL (0.8-4.8); LYMPHOCYTES % (AUTO) 7.3 % (20.0-44.0); MEAN CORPUSCULAR HGB CONC 31 g/dl (31.0-36.0); MEAN CORPUSCULAR VOLUME 91 fL (82-100); MONOCYTES # (AUTO) 0.5 K/uL (0.1-1.30); MONOCYTES % (AUTO) 3.1 % (2.0-12.0); NEUTROPHILS # (AUTO) 14.1 K/uL (1.8-8.9); NEUTROPHILS % (AUTO) 87.4 % (43.0-81.0); PLATELET COUNT (AUTO) 251 K/uL (150-450); RED BLOOD CELL COUNT(AUTO) 2.89 MIL/uL (4.0-5.2); WHITE BLOOD COUNT (AUTO) 16.1 K/uL (4.3-11.0)
[2021-11-07] MEDS: BLOOD SUGAR DIAGNOSTIC 1 EACH STRIP VI SCH ×4 (08:10→22:00)
[2021-11-07] MEDS: CYANOCOBALAMIN 500 MCG TABLET PO SCH (08:17)
[2021-11-07] MEDS: PANTOPRAZOLE 40 MG TABLET.DR PO SCH (08:17)
[2021-11-07] MEDS: METHIMAZOLE (5MG) 5 MG TABLET PO SCH (08:17)
[2021-11-07] MEDS: busPIRone 5 MG TABLET PO SCH ×2 (08:17→17:38)
[2021-11-07] MEDS: SENNOSIDES 8.6 MG TABLET PO SCH ×2 (08:17→17:38)
[2021-11-07] MEDS: MAGNESIUM OXIDE 400 MG TABLET PO SCH (08:18)
[2021-11-07 08:30] LABS: ALBUMIN 1.7 g/dL (3.4-5.0); BILIRUBIN,DIRECT 0.1 mg/dL (0.0-0.2); BILIRUBIN,TOTAL 0.2 mg/dL (0.2-1.0); TOTAL PROTEIN, SERUM 6.3 g/dL (6.4-8.2)
--- NOTE | 2021-11-07 09:00 | NUR ---
SPEECH THERAPIST AT BEDSIDE. SWALLOW EVAL. CHANGED TO MECH. SOFT , THIN LIQUIDS OKAY.
--- NOTE | 2021-11-07 10:12 | NUR ---
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 PT IS ON FIRST STEP [facility] AIRLOSS MATTRESS. SURGICAL CONSULT CALLED TO DR MULLEN. RECOMMENDATIONS MADE FOR SKIN PROTECTION. DISCUSSED WITH NURSING STAFF. MD IN AGREEMENT WITH PLAN OF CARE.
[2021-11-07] MEDS ORDERED: Z GUARD REMEDY 2 OZ OINT TP PRN (10:30)
[2021-11-07] MEDS: Z GUARD REMEDY 2 OZ OINT TP SCH (11:09)
--- NOTE | 2021-11-07 12:00 | NUR ---
STABLE. TELE STATUS PER DR. BELLA.
[2021-11-07] MEDS: HYDROGEL DRESSING 90 GM TUBE TP SCH (15:00)
[2021-11-07] MEDS: IV NS 0.9% 1,000 ML IV PRN (17:37)
--- NOTE | 2021-11-07 18:00 | NUR ---
BP REMAINS STABLE. ASSISTED WITH MEALS. AWAITING FOR TELE BED.
[2021-11-07] MEDS: VANCOMYCIN 1 GM in IV D5W 250 ML IV SCH (18:18)
--- NOTE | 2021-11-07 20:00 | NUR ---
REAL ESTATE INVESTMENT ANALYST PT IS AWAKE, ALERT, ORIENTED X 1. VSS, AFEBRILE, SCOPE-SR-ST.R.A.DNR CODE. TELE STATUS. PT WAS TRANSFERRED TO ROOM 306-1, REPORT GIVEN TO Alem VILLA RN.
--- NOTE | 2021-11-07 20:15 | NUR ---
FIRE DEPARTMENT BATTALION CHIEF ADMITTING NOTES: RECEIVED PATIENT FROM YASHIRA, VIA GURNEY ON STABLE CONDITION, BED IN LOW POSITION CALL LIGHTS WITHIN REACH, NO COMPLAIN OF PAIN AND DISCOMFORT AT THIS TIME. PATIENT ON TELE MONITORING SR-85, WITH IV HEIDI ML WITH NSS@50MLPER HOUR INFUSING WELL, PATIENT ON RA NO SOB NOTED, ORIENTED TO ROOM PATIENT KEPT CLEAN AND DRY ALL NEEDS MET WILL CONTINUE TO MONITOR.
[2021-11-07] MEDS: ACETAMINOPHEN 325 MG TABLET PO PRN (22:21)
--- NOTE | 2021-11-07 22:32 | NUR ---
RN NOTES: BS-98 NO INSULIN GIVEN
[2021-11-08] VITALS (14 sets, daily range): BP systolic 113–133; BP diastolic 48–72
[2021-11-08] MEDS: HYDROCODONE/APAP 5/325MG TABLET PO PRN ×2 (02:39→21:16)
[2021-11-08] MEDS: GABAPENTIN 100 MG CAPSULE PO SCH ×3 (05:10→21:16)
[2021-11-08 06:11] LABS: BASOPHILS % (AUTO) 0.3 % (0.0-2.0); EOSINOPHILS % (AUTO) 5.1 % (0.0-6.0); HEMATOCRIT 24 % (33-45); HEMOGLOBIN 7.9 g/dL (11.5-14.8); LYMPHOCYTES # (AUTO) 1.1 K/uL (0.8-4.8); LYMPHOCYTES % (AUTO) 14.7 % (20.0-44.0); MEAN CORPUSCULAR HGB CONC 33 g/dl (31.0-36.0); MEAN CORPUSCULAR VOLUME 89 fL (82-100); MONOCYTES # (AUTO) 0.4 K/uL (0.1-1.30); MONOCYTES % (AUTO) 5.2 % (2.0-12.0); NEUTROPHILS # (AUTO) 5.8 K/uL (1.8-8.9); NEUTROPHILS % (AUTO) 74.7 % (43.0-81.0); PLATELET COUNT (AUTO) 231 K/uL (150-450); RED BLOOD CELL COUNT(AUTO) 2.72 MIL/uL (4.0-5.2); WHITE BLOOD COUNT (AUTO) 7.8 K/uL (4.3-11.0)
[2021-11-08 06:59] LABS: CALCIUM, SERUM 8.5 mg/dL (8.5-10.1); CREATININE 0.6 mg/dL (0.6-1.3); MAGNESIUM 1.7 mg/dL (1.8-2.4); PHOSPHORUS 2.5 mg/dL (2.5-4.9)
[2021-11-08] MEDS: MEROPENEM 1 G in IV NS 0.9% 100 ML IV SCH ×2 (07:10→17:25)
[2021-11-08] MEDS: BLOOD SUGAR DIAGNOSTIC 1 EACH STRIP VI SCH ×4 (07:30→21:47)
--- NOTE | 2021-11-08 07:37 | NUR ---
RN NOTES: BLOOD SUGAR 87- NO INSULIN GIVEN ENDORSE TO INCOMING SHIFT.
--- NOTE | 2021-11-08 07:42 | NUR ---
BIG DATA ENGINEER CLOSING NOTES PATIENT SLEEP INBED COMFORTABLY, BED IN LOW POSITION, CALL LIGHTS WITHIN REACH,NO COMPLAIN OF PAIN AND DISCOMFORT AT THIS TIME, PATIENT IS A/O X1-2, ON MCDONALD CATHETER WITH 200CC URINE OUTPUT WITH JUAN PICC LINE WITH ONGOING NSS@50ML PER HOUR INFUSING WELL, PATIENT TELE MONITORING SR- RESP DISTRESS WAS OBSERVED, PATIENT KEPT CLEAN AN D DRY ALL NEEDS MET ENDORSE TO INCOMING SHIFT.
--- NOTE | 2021-11-08 07:56 | NUR ---
PACKING AND FINAL ASSEMBLY SUPERVISOR OPENING NOTE Patient in bed, awake. A/O x 1-2. On O2 at 3 LPM via NC, breathing evenly and unlabored. No SOB or s/s of distress noted. IV access on JUAN PICC line infusing NS at 50 ml/hr. Paul catheter in place draining to an mayco colored urine. On tele monitoring showing SR, HR at 81. Safety precautions in place: bed in low,locked position; siderails up x 2; call light within reach. Will continue to monitor.
[2021-11-08] MEDS: PANTOPRAZOLE 40 MG TABLET.DR PO SCH (08:32)
[2021-11-08] MEDS: MAGNESIUM OXIDE 400 MG TABLET PO SCH (09:17)
[2021-11-08] MEDS: busPIRone 5 MG TABLET PO SCH ×2 (09:18→16:27)
[2021-11-08] MEDS: CYANOCOBALAMIN 500 MCG TABLET PO SCH (09:18)
[2021-11-08] MEDS: SENNOSIDES 8.6 MG TABLET PO SCH ×2 (09:18→16:27)
[2021-11-08] MEDS: METHIMAZOLE (5MG) 5 MG TABLET PO SCH (09:18)
[2021-11-08] MEDS: HYDROGEL DRESSING 90 GM TUBE TP SCH (09:28)
[2021-11-08] MEDS: Z GUARD REMEDY 2 OZ OINT TP SCH (09:28)
[2021-11-08] MEDS: MUPIROCIN OINT 2% 22 GM TUBE NS SCH ×2 (09:50→21:15)
[2021-11-08] MEDS: ACETAMINOPHEN 325 MG TABLET PO PRN ×2 (10:49→19:30)
[2021-11-08] MEDS ORDERED: MUPIROCIN OINT 2% 22 GM TUBE NS SCH (11:30)
--- NOTE | 2021-11-08 12:30 | NUR ---
RN NOTE Patient BS is 96, no Insulin coverage.
[2021-11-08] MEDS: IV NS 0.9% 1,000 ML IV PRN (17:25)
--- NOTE | 2021-11-08 18:03 | NUR ---
RN NOTE Patient BS is 99, no Insulin coverage per sliding scale.
[2021-11-08] MEDS: VANCOMYCIN 1 GM in IV D5W 250 ML IV SCH (18:50)
--- NOTE | 2021-11-08 19:30 | NUR ---
MS RN OPENING NOTES RECEIVED PATIENT LAYING AWAKE IN BED. A/O X1-2. PATIENT WITH REGULAR AND UNLABORED BREATHING ON 3LPM VIA NASAL CANULA, TOLERATED WELL. NO SIGNS AND SYMPTOMS OF DISTRESS NOTED. NO COMPLAIN OF PAIN OR DISCOMFORT NOTED AT THIS TIME. IV ACCESS JUAN MIDLINE ON NS @ 50 ML/HR. ACCESS PATENT AND INTACT. SAFETY PRECAUTIONS ENFORCED WITH BED LOCKED AND AT LOWEST POSITION. SIDERAILS UP. CALL LIGHT WITHIN REACH AT ALL TIMES WILL CONTINUE TO MONITOR PATIENT.
--- NOTE | 2021-11-08 19:37 | NUR ---
MS RN CLOSING NOTE Patient in bed, awake resting comfortably. A/O x 1-2. On O2 at 3 LPM via NC, breathing evenly and unlabored. No SOB or s/s of distress noted. IV access on JUAN PICC line infusing NS at 50 ml/hr. Paul catheter in place draining to an mayco colored urine with an output of 500 cc. All needs attended to. Due meds given. Safety precautions maintained: bed in low,locked position; siderails up x 2; call light within reach. Will endorse to weight shifter nurse for SIDDHARTHA.
[2021-11-09] MEDS: GABAPENTIN 100 MG CAPSULE PO SCH ×2 (05:40→12:34)
[2021-11-09] MEDS: MEROPENEM 1 G in IV NS 0.9% 100 ML IV SCH (05:41)
[2021-11-09 06:31] LABS: BASOPHILS % (AUTO) 0.6 % (0.0-2.0); EOSINOPHILS % (AUTO) 6.9 % (0.0-6.0); HEMATOCRIT 25 % (33-45); HEMOGLOBIN 8.1 g/dL (11.5-14.8); LYMPHOCYTES # (AUTO) 1.4 K/uL (0.8-4.8); MEAN CORPUSCULAR HGB CONC 33 g/dl (31.0-36.0); MEAN CORPUSCULAR VOLUME 89 fL (82-100); MONOCYTES # (AUTO) 0.4 K/uL (0.1-1.30); MONOCYTES % (AUTO) 6.8 % (2.0-12.0); NEUTROPHILS # (AUTO) 3.5 K/uL (1.8-8.9); NEUTROPHILS % (AUTO) 60.7 % (43.0-81.0); PLATELET COUNT (AUTO) 224 K/uL (150-450); RED BLOOD CELL COUNT(AUTO) 2.78 MIL/uL (4.0-5.2); WHITE BLOOD COUNT (AUTO) 5.7 K/uL (4.3-11.0)
--- NOTE | 2021-11-09 07:00 | NUR ---
MS RN CLOSING NOTES PATIENT STILL LAYING AWAKE IN BED. A/O X1-2. PATIENT WITH REGULAR AND UNLABORED BREATHING ON 3LPM VIA NASAL CANULA, TOLERATED WELL. NO SIGNS AND SYMPTOMS OF DISTRESS NOTED. NO COMPLAIN OF PAIN OR DISCOMFORT NOTED AT THIS TIME. IV ACCESS JUAN MIDLINE ON NS @ 50 ML/HR. ACCESS PATENT AND INTACT. SAFETY PRECAUTIONS ENFORCED WITH BED LOCKED AND AT LOWEST POSITION. SIDERAILS UP. CALL LIGHT WITHIN REACH AT ALL TIMES WILL ENDORSE CONTNUITY OF CARE TO DAY SHIFT NURSE.
[2021-11-09 07:14] LABS: CALCIUM, SERUM 8.9 mg/dL (8.5-10.1); CARBON DIOXIDE 24 mmol/L (21-32); CHLORIDE 108 mmol/L (98-107); CREATININE 0.5 mg/dL (0.6-1.3); GLUCOSE 92 mg/dL (74-106); MAGNESIUM 1.8 mg/dL (1.8-2.4); PHOSPHORUS 3.4 mg/dL (2.5-4.9); POTASSIUM 4.2 mmol/L (3.5-5.1); SODIUM SERUM 139 mmol/L (136-145); UREA NITROGEN, BLOOD 12 mg/dL (7-18)
[2021-11-09] MEDS: BLOOD SUGAR DIAGNOSTIC 1 EACH STRIP VI SCH ×2 (07:28→11:12)
[2021-11-09 08:00] VITALS: BP 132/68
[2021-11-09] MEDS: MAGNESIUM OXIDE 400 MG TABLET PO SCH (08:06)
[2021-11-09] MEDS: SENNOSIDES 8.6 MG TABLET PO SCH (08:06)
[2021-11-09] MEDS: busPIRone 5 MG TABLET PO SCH (08:06)
[2021-11-09] MEDS: METHIMAZOLE (5MG) 5 MG TABLET PO SCH (08:06)
[2021-11-09] MEDS: PANTOPRAZOLE 40 MG TABLET.DR PO SCH (08:07)
[2021-11-09] MEDS: Z GUARD REMEDY 2 OZ OINT TP SCH (08:07)
[2021-11-09] MEDS: CYANOCOBALAMIN 500 MCG TABLET PO SCH (08:07)
[2021-11-09] MEDS: HYDROGEL DRESSING 90 GM TUBE TP SCH (08:08)
[2021-11-09] MEDS: MUPIROCIN OINT 2% 22 GM TUBE NS SCH (08:08)
[2021-11-09] MEDS: ACETAMINOPHEN 325 MG TABLET PO PRN (08:22)
[2021-11-09] MEDS ORDERED: VANC1FRO2 IV (09:21)
[2021-11-09] MEDS ORDERED: MERO1VIA23 IV (09:21)
[2021-11-09] MEDS: INSULIN REGULAR, HUMAN 100 UNIT/ML 3 ML VIAL SQ PRN (11:12)
--- NOTE | 2021-11-09 14:11 | NUR ---
INTERNAL CONTROL MANAGER NOTE RECEIVED DISCHARGE ORDER. PATIENT IS A/O X1, PATIENT IS BREATHING EVENLY AND NONLABORED ON 2LPM VIA NASAL CANNULA. NO SIGNS OF DISTRESS NOTED. PATIENT DENIES PAIN OR DISCOMFORT AT THIS TIME. PATIENT HAS IV ACCESS LEFT UPPER ARM PICC LINE FOR MEDICATION RECONCILIATION TECHNICIAN ATB UPON DC PATENT AND INTACT. F/C INTACT. PATIENT ADAMANTLY REFUSED SKIN PICTURES. BOAT DETAILER AWARE. REPORT WAS GIVEN TO YAN GILMORE MARKETING AND COMMUNICATIONS OFFICER @ [facility]. PATIENT WAS GIVEN DISCHARGE INSTRUCTIONS BOTH VERBALLY AND IN WRITTEN FORM. PATIENT VERBALIZED UNDERSTANDING. PATIENT LEFT IN STABLE CONDITION VIA AMBULANCE
== END 2021-11-09 14:10 | DRG 871 ==
LOC: ER 17:08 → TRANSITION 21:00 → ICU 22:23 → TELE 11-07 20:11 → MED 11-08 09:51
PROVIDERS: ADMIT Nurse Practitioner Acute Care; ATTEND Internal Medicine
PROC: 02HV33Z Insertion of Infusion Device into Superior Vena Cava, Percutaneous Approach (ICD-10-PCS; principal; 2021-11-05)
PROC: B548ZZA Ultrasonography of Superior Vena Cava, Guidance (ICD-10-PCS; 2021-11-05)
DX: A41.59 Other Gram-negative sepsis (principal); L89.154 Pressure ulcer of sacral region, stage 4; G93.41 Metabolic encephalopathy; I50.33 Acute on chronic diastolic (congestive) heart failure; R65.21 Severe sepsis with septic shock; J15.6 Pneumonia due to other Gram-negative bacteria; J96.01 Acute respiratory failure with hypoxia; J69.0 Pneumonitis due to inhalation of food and vomit; E44.0 Moderate protein-calorie malnutrition; J44.0 Chronic obstructive pulmonary disease with (acute) lower respiratory infection; D68.59 Other primary thrombophilia; I13.0 Hypertensive heart and chronic kidney disease with heart failure and stage 1 through stage 4 chronic kidney disease, or unspecified chronic kidney disease; N30.00 Acute cystitis without hematuria; M46.28 Osteomyelitis of vertebra, sacral and sacrococcygeal region; T79.7XXA Traumatic subcutaneous emphysema, initial encounter; N17.9 Acute kidney failure, unspecified; Z16.12 Extended spectrum beta lactamase (ESBL) resistance; E11.69 Type 2 diabetes mellitus with other specified complication; E11.22 Type 2 diabetes mellitus with diabetic chronic kidney disease; Z86.73 Personal history of transient ischemic attack (TIA), and cerebral infarction without residual deficits; Z20.822 Contact with and (suspected) exposure to COVID-19; E03.9 Hypothyroidism, unspecified; E78.5 Hyperlipidemia, unspecified; G20 Parkinson's disease; F02.80 Dementia in other diseases classified elsewhere, unspecified severity, without behavioral disturbance, psychotic disturbance, mood disturbance, and anxiety; N18.9 Chronic kidney disease, unspecified; Z79.84 Long term (current) use of oral hypoglycemic drugs; X58.XXXA Exposure to other specified factors, initial encounter; Y92.9 Unspecified place or not applicable; K21.9 Gastro-esophageal reflux disease without esophagitis; D64.9 Anemia, unspecified; Z74.01 Bed confinement status; K62.89 Other specified diseases of anus and rectum; E66.01 Morbid (severe) obesity due to excess calories; Z68.33 Body mass index [BMI] 33.0-33.9, adult; K56.41 Fecal impaction; E87.6 Hypokalemia; K42.9 Umbilical hernia without obstruction or gangrene; K57.30 Diverticulosis of large intestine without perforation or abscess without bleeding; Z79.899 Other long term (current) drug therapy; Z87.01 Personal history of pneumonia (recurrent)
CPT/HCPCS: 36415; 71045-TC; 80048-TC; 80053-TC; 80076-TC; 80202-TC; 81001; 82728-TC; 82962-TC; 83605-TC; 83615-TC; 83735-TC; 83880; 84100-TC; 84484-TC; 85025-TC; 85378-TC; 85730-TC; 86140-TC; 87040-TC; 87070-TC; 87081-TC; 87086-TC; 87186-TC; 92526; 92611-TC; 93307-TC; A6248; A6253; A6403; G0378; J1815; J2185; J3370; J3480; J7030; J7050; J7060; U0003